=== PATIENT | female | born 1950 | race Caucasian/White ===

== ENCOUNTER → 2017-10-29 | Outpatient (CLI) | payer MEDICARE ==
--- NOTE | 2017-11-05 15:45 | MM ---
Reason for exam: screening (asymptomatic). Last mammogram was performed 7 years and 7 months ago. History: Patient is postmenopausal. Family history of breast cancer in mother at age 65. MG 3D Screening Mammo W/Cad Bilateral CC and MLO view(s) were taken. Prior study comparison: April 12, 2010, CAD bilateral diagnostic mammogram. September 22, 2005, CAD bilateral diagnostic mammogram. There are scattered fibroglandular densities. No suspicious abnormality. No significant changes when compared with prior studies. ASSESSMENT: Negative, BI-RAD 1 RECOMMENDATION: Routine screening mammogram of both breasts in 1 year.
== END | disposition home or self-care (01) ==
LOC: RADMAMWWP 13:10
PROVIDERS: ATTEND Family Medicine
DX: Z12.31 Encounter for screening mammogram for malignant neoplasm of breast (principal)
CPT/HCPCS: 77063; 77067

== ENCOUNTER 2017-11-09 09:20 | Day surgery (SDC) | payer MEDICARE ==
[2017-11-06 09:19] VITALS: BMI 42.5
[~2017-11-09 09:20] MED LIST: LACTATED RINGERS 1,000 ML IV SCH
[2017-11-09 09:49] VITALS: TEMP 98.1
[2017-11-09] MEDS ORDERED: PROPOFOL 10 MG/ML 20 ML VIAL IV ONE (10:15)
--- NOTE | 2017-11-09 10:27 | P.GSHP ---
History of Present Illness H&P Date: 11/09/17 Chief Complaint: Screening colonoscopy This is a 67-year-old female presents today for screening colonoscopy. Patient denies any significant GI complaints. Her last colonoscopy was over 20 years ago. Past Medical History Past Medical History: Myocardial Infarction ([place]), Musculoskeletal Disorder Additional Past Medical History / Comment(s): Back pain Last Myocardial Infarction Date:: 2001 History of Any Multi-Drug Resistant Organisms: None Reported Past Surgical History: Heart Catheterization Additional Past Surgical History / Comment(s): Abd. tumor/ ?benign/ no further [place]; pain procedures, colonoscopy Past Anesthesia/Blood Transfusion Reactions: No Reported Reaction Smoking Status: Former smoker - Past Family History Brother(s) Family Medical History: Cancer Additional Family Medical History / Comment(s): Colon Ca Medications and Allergies Home Medications Medication Instructions Recorded Confirmed Type Ascorbic Acid [Vitamin C] 1,000 mg PO DAILY 11/06/17 11/06/17 History Aspirin [Adult Low Dose Aspirin EC] 81 mg PO DAILY 11/06/17 11/06/17 History Calcium/Magnesium/Zinc 1 each PO DAILY 11/06/17 11/06/17 History [Hbhzkrh-Sxzbsdnrp-Ykis Tablet] Cholecalciferol (Vitamin D3) 2,000 unit PO DAILY 11/06/17 11/06/17 History [Vitamin D3] Lecithin, Soy [Lecithin] 400 mg PO DAILY 11/06/17 11/06/17 History Multivitamins, Thera [Multivitamin 1 tab PO DAILY 11/06/17 11/06/17 History (formulary)] Potassium 99 mg PO DAILY 11/06/17 11/06/17 History Vitamin B Complex 1 each PO DAILY 11/06/17 11/06/17 History Vitamin E 1,000 unit PO DAILY 11/06/17 11/06/17 History Acetaminophen Tab [Tylenol Tab] 650 mg PO Q4H PRN 11/09/17 11/09/17 History Allergies Allergy/AdvReac Type Severity Reaction Status Date / Time Sulfa (Sulfonamide Allergy states she Verified 11/06/17 09:08 Antibiotics) feels terrible, can't move Surgical - Exam Vital Signs Temp Pulse Resp BP Pulse Ox 98.1 F 65 18 134/85 97 11/09/17 09:47 11/09/17 09:47 11/09/17 09:47 11/09/17 09:47 11/09/17 09:47 - General well developed, well nourished - Eyes PERRL - ENT normal pinna - Neck no masses - Respiratory normal expansion - Cardiovascular Rhythm: regular - Abdomen Abdomen: soft, non tender Assessment and Plan Assessment: We'll perform screening colonoscopy.
--- NOTE | 2017-11-09 10:42 | P.OP ---
Date of Procedure: 11/09/17 Preoperative Diagnosis: Screening colonoscopy Postoperative Diagnosis: Internal and external hemorrhoids Diverticulosis Sigmoid colon polyp Left colon polyp Procedure(s) Performed: Colonoscopy Anesthesia: MAC Surgeon: Dany Askew Pathology: other (Sigmoid colon polyp, left colon polyp) Condition: stable Disposition: PACU Description of Procedure: Patient's placed on the endoscopy table in the lateral position. She received IV sedation. Digital rectal exam was performed which revealed significant internal and external hemorrhoids. The flexible colonoscope was then placed patient anus and passed throughout the entire colon. The ileocecal valve sutures. The cecum appeared normal. The ascending colon appeared normal. In the transverse colon there is mild diverticular changes. Scope was then brought back the descending colon and there was extensive diverticular changes. There was a polyp seen this removed with the snare. Scope was brought back and sigmoid colon there is another polyp seen this removed with the snare and forcep. There is extensive diverticular changes. Scope was then brought back the rectum this appeared normal. Scope was withdrawn for patient and internal and external hemorrhoids noted.
[2017-11-09 11:21] VITALS: BP 147/84; PULSE 64; RESP 20
== END 2017-11-09 11:28 | disposition home or self-care (01) ==
LOC: ORWHC2ENDO 09:20
PROVIDERS: ATTEND Surgery
DX: Z12.11 Encounter for screening for malignant neoplasm of colon (principal); K63.5 Polyp of colon; K57.30 Diverticulosis of large intestine without perforation or abscess without bleeding; K64.4 Residual hemorrhoidal skin tags; K64.8 Other hemorrhoids; I25.2 Old myocardial infarction; M54.5 Low back pain; Z87.891 Personal history of nicotine dependence; Z79.82 Long term (current) use of aspirin; Z88.2 Allergy status to sulfonamides
CPT/HCPCS: 88305; 45385; J2704

== ENCOUNTER → 2019-02-15 | Outpatient (CLI) | payer MEDICARE ==
--- NOTE | 2019-02-15 15:53 | XR ---
EXAMINATION TYPE: XR cervical spine 5 views comp, XR lumbosacral spine min 5 views DATE OF EXAM: 02/15/2019 COMPARISON: None HISTORY: 68-year-old female with neck and low back pain FINDINGS: Cervical spine: No predental space widening or prevertebral soft tissue swelling. Degenerative changes at the C1 dens articulation. Moderate disc/endplate degenerative change particularly at C5-C7 levels. Straightening of the normal cervical lordosis with preserved alignment. Facet and uncovertebral joint arthropathy throughout. On the right, there is moderate bony neuroforaminal narrowing at C5-C6 and mild at C6/C7. On the left, there is mild bony neuroforaminal narrowing at C4-C5 and severe at C6-C7. No odontoid v iew. Lumbar spine: Degenerated levoconvex scoliosis centered along the upper lumbar spine. There is hypertrophic facet a rthropathy particularly towards the left in the lower lumbar spine. Grade 1 anterolisthesis at L4-L5. Overall vertebral body heights appear maintained. IMPRESSION: 1. Cervical spine: Moderate spondylotic changes especially from C5 through C7 levels. Uncovertebral j oint and facet arthropathy throughout. Changes result in severe left neuroforaminal narrowing at C6-C 7 and moderate on the right at C5-C6. 2. Lumbar spine: Degenerated levoconvex scoliosis with advanced multilevel hypertrophic facet arthrop athy greatest towards the left in the lower lumbar spine. Degenerative grade 1 anterolisthesis at C4- C5. No vertebral compression collapse.
== END | disposition home or self-care (01) ==
LOC: RADXRMAIN 14:45
PROVIDERS: ATTEND Family Medicine
DX: M48.02 Spinal stenosis, cervical region (principal); M43.12 Spondylolisthesis, cervical region; M47.812 Spondylosis without myelopathy or radiculopathy, cervical region; M46.92 Unspecified inflammatory spondylopathy, cervical region; M41.86 Other forms of scoliosis, lumbar region; M46.96 Unspecified inflammatory spondylopathy, lumbar region
CPT/HCPCS: 72050; 72110

== ENCOUNTER 2021-05-01 20:55 | Inpatient (IN) | payer MEDICARE ==
--- NOTE | 2021-05-01 21:45 | XR ---
EXAMINATION TYPE: XR shoulder complete RT DATE OF EXAM: 05/01/2021 9:43 PM INDICATION: Patient age:Female; 70 years old; Reason for study: woke up with shoulder pain 2 days ago. ; COMPARISON: None TECHNIQUE: The right shoulder was examined in AP, internally rotated and axillary projections. FINDINGS: No evidence of acute osseous pathology, joint dislocation, or soft tissue swelling. The remaining por tions of the visualized chest are unremarkable. Degenerative changes acromioclavicular joint as well as the glenohumeral joint are present. IMPRESSION: 1. No acute osseous pathology. 2. 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
--- NOTE | 2021-05-01 22:07 | XR ---
EXAMINATION TYPE: XR elbow complete RT DATE OF EXAM: 05/01/2021 9:47 PM INDICATION: Patient age:Female; 70 years old; Reason for study: pain; COMPARISON: None TECHNIQUE: The right elbow was examined in AP, lateral, and oblique projections. FINDINGS: No evidence of any acute osseous pathology, joint dislocation, or soft tissue swelling is n oted. No evidence of joint effusion is present. Calcification off the lateral epicondyle changes. Os teophytes are seen involving the ulna coronoid process and olecranon. IMPRESSION: 1. No evidence of acute fracture. 2. Mild osteoarthrosis changes of the elbow
[2021-05-01 23:50] LABS: Basophils % (A) 1 %; Eosinophils # (A) 0.2 k/uL (0-0.7); Eosinophils % (A) 3 %; HCT 40.8 % (34.0-46.0); Lymphocytes # (A) 1.1 k/uL (1.0-4.8); Lymphocytes % (A) 19 %; MCH 29.9 pg (25.0-35.0); MCHC 31.9 g/dL (31.0-37.0); MCV 93.9 fL (80.0-100.0); Mean Platelet Volume 8.2; Monocytes # (A) 0.4 k/uL (0-1.0); Monocytes % (A) 6 %; Neutrophils # (A) 4.1 k/uL (1.3-7.7); Neutrophils % (A) 69 %; Platelet Count 266 k/uL (150-450); RBC 4.34 m/uL (3.80-5.40); RDW 14.8 % (11.5-15.5); WBC 5.9 k/uL (3.8-10.6)
--- NOTE | 2021-05-01 23:53 | XR ---
EXAMINATION TYPE: XR chest 1V DATE OF EXAM: 05/01/2021 COMPARISON: NONE HISTORY: Chest pain TECHNIQUE: Single view FINDINGS: Heart is enlarged. There is no heart failure. There are chest leads. Costophrenic angles ar e clear. There are no hilar masses. Bony thorax is intact IMPRESSION: No active cardiopulmonary disease.
[2021-05-02 00:06] LABS: ALT 23 U/L (4-34); African American GFR (CKD) >90 (>60 ml/min/1.73 sqM); Albumin 3.8 g/dL (3.5-5.0); Anion Gap 7 mmol/L; Blood Urea Nitrogen 10 mg/dL (7-17); Calcium 9.3 mg/dL (8.4-10.2); Carbon Dioxide 25 mmol/L (22-30); Chloride 104 mmol/L (98-107); Glucose 112 mg/dL (74-99); Non-African American GFR(CKD) >90 (>60 ml/min/1.73 sqM); Sodium 136 mmol/L (137-145); Total Bilirubin 1.1 mg/dL (0.2-1.3)
[2021-05-02 00:08] LABS: AST 36 U/L (14-36); Potassium 4.2 mmol/L (3.5-5.1)
[2021-05-02 00:09] LABS: Alkaline Phosphatase 66 U/L (38-126); Magnesium 1.9 mg/dL (1.6-2.3)
[2021-05-02 00:34] LABS: INR 0.9 (<1.2); Prothrombin Time 9.9 sec (9.0-12.0)
[2021-05-02 00:35] LABS: Partial Thromboplastin Time 19.9 sec (22.0-30.0)
--- NOTE | 2021-05-02 00:53 | US ---
EXAMINATION TYPE: US venous doppler duplex UE RT DATE OF EXAM: 05/02/2021 COMPARISON: NONE CLINICAL HISTORY: swelling, recent hospitalization. Swelling, pain. No hx of DVT. SIDE PERFORMED: Right Right Arm: No evidence of DVT in veins imaged at this time. IMPRESSION: No evidence of deep vein thrombosis in the right arm.
[2021-05-02] MEDS ORDERED: DILTIAZEM DRIP BOLUS FROM BAG 1 MG SOLN IV ONE (01:31)
[2021-05-02] MEDS ORDERED: PANTOPRAZOLE 40 MG/10 ML VIAL IVP STA (01:32)
[2021-05-02] MEDS ORDERED: MAG HYDROX/AL HYDROX/SIMETH 30 ML, HYOSCYAMINE ELIXIR 10 ML, LIDOCAINE VISCOUS 2% 10 ML PO STA ×3 (01:32)
[2021-05-02] MEDS ORDERED: MORPHINE SULFATE 4 MG/ML SYRINGE IV PRN (01:33)
[2021-05-02] MEDS ORDERED: NALOXONE 0.4 MG/ML 1 ML VIAL IV PRN (01:33)
--- NOTE | 2021-05-02 01:33 | ED ---
General Adult HPI - General Chief complaint: Extremity Problem,Nontraumatic Stated complaint: Right arm pain, diarrhea Time Seen by Provider: 05/01/21 23:03 Source: patient Mode of arrival: ambulatory Limitations: no limitations - History of Present Illness Initial comments: 70-year-old female presents emergency Department with reported right shoulder p ain. Patient reports that she was just hospitalized at [facility] twice over the past 2 weeks. She was having abdominal pain and found to have gastric and duodenal ulcers. Today the patient presents for right shoulder pain. She reports that it started 2 days ago after she woke up. She was concerned that she may have slept wrong. She has no known injury. Pain starts in the patient's scapula and radiates down her right arm. States that she has had some associated swelling. She has also noted vesicular lesions on her bilateral hands which spares the palms. Patient does admit to some associated chest pain. She arrives and is in A. fib with a rapid rate. She denies history of such. No ripping or tearing sensation to her back. Denies any numbness, tingling or weakness in her extremities. No alleviating, precipitating or modifying factors - Related Data Home Medications Medication Instructions Recorded Confirmed Albuterol Sulfate [Albuterol 2 puff PO RT-Q6H PRN 05/01/21 05/01/21 Sulfate Hfa] Losartan [Cozaar] 50 mg PO DAILY 05/01/21 05/01/21 Methocarbamol [Robaxin-750] 750 mg PO TID PRN 05/01/21 05/01/21 Omeprazole 40 mg PO BID 05/01/21 05/01/21 Sucralfate [Carafate] 1 gm PO TID 05/01/21 05/01/21 Allergies Allergy/AdvReac Type Severity Reaction Status Date / Time Sulfa (Sulfonamide Allergy states she Verified 05/01/21 23:28 Antibiotics) feels terrible, can't move Review of Systems ROS Statement: Those systems with pertinent positive or pertinent negative responses have been documented in the HPI. ROS Other: All systems not noted in ROS Statement are negative. Past Medical History Past Medical History: Myocardial Infarction ([place]), Musculoskeletal Disorder Additional Past Medical History / Comment(s): Back pain, ulcers. Last Myocardial Infarction Date:: 2001 History of Any Multi-Drug Resistant Organisms: None Reported Past Surgical History: Heart Catheterization Additional Past Surgical History / Comment(s): Abd. tumor/ ?benign/ no further [place]; pain procedures, colonoscopy Past Anesthesia/Blood Transfusion Reactions: No Reported Reaction Past Psychological History: No Psychological Hx Reported Smoking Status: Never smoker Past Alcohol Use History: Rare Past Drug Use History: None Reported - Past Family History Brother(s) Family Medical History: Cancer Additional Family Medical History / Comment(s): Colon Ca General Exam Limitations: no limitations Course Vital Signs 05/01/21 05/01/21 21:25 22:29 Temperature 98.3 F 98.0 F Pulse Rate 120 H 70 Respiratory 20 Rate Blood Pressure 130/70 154/110 O2 Sat by Pulse 96 95 Oximetry Medical Decision Making - Medical Decision Making Upon arrival patient was placed into trauma 1. A thorough history and physical exam was performed. Laboratory studies are conducted. Patient has a elbow, shoulder and chest x-ray performed. Results are discussed the patient. She is given a GI cocktail she does report to reflux. Patient also dose of pain medications. She started on a Cardizem drip as her heart rate is anywhere from 130 to 150. Heparinization is held as the patient was recently hospitalized for GI bleeding. I recommended admission. Spoke with Dr. Walter. Patient awaiting a bed on the floor in stable condition - Lab Data Result diagrams: 05/01/21 23:42 05/01/21 23:42 Lab Results 05/01/21 05/01/21 05/01/21 Range/Units 23:42 23:42 23:42 WBC 5.9 (3.8-10.6) k/uL RBC 4.34 (3.80-5.40) m/uL Hgb 13.0 (11.4-16.0) gm/dL Hct 40.8 (34.0-46.0) % MCV 93.9 (80.0-100.0) fL MCH 29.9 (25.0-35.0) pg MCHC 31.9 (31.0-37.0) g/dL RDW 14.8 (11.5-15.5) % Plt Count 266 (150-450) k/uL MPV 8.2 Neutrophils % 69 % Lymphocytes % 19 % Monocytes % 6 % Eosinophils % 3 % Basophils % 1 % Neutrophils # 4.1 (1.3-7.7) k/uL Lymphocytes # 1.1 (1.0-4.8) k/uL Monocytes # 0.4 (0-1.0) k/uL Eosinophils # 0.2 (0-0.7) k/uL Basophils # 0.0 (0-0.2) k/uL PT 9.9 (9.0-12.0) sec INR 0.9 (<1.2) APTT 19.9 L (22.0-30.0) sec Sodium 136 L (137-145) mmol/L Potassium 4.2 (3.5-5.1) mmol/L Chloride 104 (98-107) mmol/L Carbon Dioxide 25 (22-30) mmol/L Anion Gap 7 mmol/L BUN 10 (7-17) mg/dL Creatinine 0.60 (0.52-1.04) mg/dL Est GFR (CKD-EPI)AfAm >90 (>60 ml/min/1.73 sqM) Est GFR (CKD-EPI)NonAf >90 (>60 ml/min/1.73 sqM) Glucose 112 H (74-99) mg/dL Calcium 9.3 (8.4-10.2) mg/dL Magnesium 1.9 (1.6-2.3) mg/dL Total Bilirubin 1.1 (0.2-1.3) mg/dL AST 36 (14-36) U/L ALT 23 (4-34) U/L Alkaline Phosphatase 66 (38-126) U/L Troponin I (0.000-0.034) ng/mL NT-Pro-B Natriuret Pep pg/mL Total Protein 7.0 (6.3-8.2) g/dL Albumin 3.8 (3.5-5.0) g/dL 05/01/21 05/01/21 Range/Units 23:42 23:42 WBC (3.8-10.6) k/uL RBC (3.80-5.40) m/uL Hgb (11.4-16.0) gm/dL Hct (34.0-46.0) % MCV (80.0-100.0) fL MCH (25.0-35.0) pg MCHC (31.0-37.0) g/dL RDW (11.5-15.5) % Plt Count (150-450) k/uL MPV Neutrophils % % Lymphocytes % % Monocytes % % Eosinophils % % Basophils % % Neutrophils # (1.3-7.7) k/uL Lymphocytes # (1.0-4.8) k/uL Monocytes # (0-1.0) k/uL Eosinophils # (0-0.7) k/uL Basophils # (0-0.2) k/uL PT (9.0-12.0) sec INR (<1.2) APTT (22.0-30.0) sec Sodium (137-145) mmol/L Potassium (3.5-5.1) mmol/L Chloride (98-107) mmol/L Carbon Dioxide (22-30) mmol/L Anion Gap mmol/L BUN (7-17) mg/dL Creatinine (0.52-1.04) mg/dL Est GFR (CKD-EPI)AfAm (>60 ml/min/1.73 sqM) Est GFR (CKD-EPI)NonAf (>60 ml/min/1.73 sqM) Glucose (74-99) mg/dL Calcium (8.4-10.2) mg/dL Magnesium (1.6-2.3) mg/dL Total Bilirubin (0.2-1.3) mg/dL AST (14-36) U/L ALT (4-34) U/L Alkaline Phosphatase (38-126) U/L Troponin I <0.012 (0.000-0.034) ng/mL NT-Pro-B Natriuret Pep 1160 pg/mL Total Protein (6.3-8.2) g/dL Albumin (3.5-5.0) g/dL Disposition Clinical Impression: Atrial fibrillation with RVR, Right shoulder pain, Accelerated hypertension Disposition: ADMITTED IP TO THIS [facility] Condition: Stable Is patient prescribed a controlled substance at d/c from ED?: No Decision to Admit Reason: Admit from EC Decision Date: 05/02/21 Decision Time: 01:33
[2021-05-02] MEDS ORDERED: DILTIAZEM 125 MG in SODIUM CHLORIDE 0.9% 100 ML IV SCH (01:45)
[2021-05-02] MEDS: HYDROmorphone 0.5 MG/0.5 ML SYRINGE IVP PRN ×2 (05:21→14:38)
[2021-05-02] MEDS ORDERED: PANTOPRAZOLE 40 MG/10 ML VIAL IV SCH (09:00)
[2021-05-02] MEDS: METOPROLOL TARTRATE 25 MG TAB PO SCH ×2 (10:43→20:18)
[2021-05-02] MEDS ORDERED: methocarbamoL 750 MG TAB PO PRN (10:48)
[2021-05-02] MEDS ORDERED: NON FORMULARY DRUG (Omeprazole [Omeprazole] 40 MG Capsule.Dr) PO SCH (11:00)
--- NOTE | 2021-05-02 11:00 | ECHOF ---
Referral Reason:tachycardia/a fib MEASUREMENTS -------- HEIGHT: 170.2 cm WEIGHT: 120.2 kg BP: 114/69 RVIDd: 3.2 cm (< 3.3) IVSd: 1.5 cm (0.6 - 1.1) LVIDd: 5.9 cm (3.9 - 5.3) LVPWd: 1.4 cm (0.6 - 1.1) IVSs: 1.8 cm LVIDs: 3.9 cm LVPWs: 2.0 cm LAESV Index (A-L): 35.28 ml/m Ao Diam: 3.6 cm (2.0 - 3.7) AV Cusp: 2.2 cm (1.5 - 2.6) LA Diam: 4.4 cm (2.7 - 3.8) MV EXCURSION: 21.045 mm (> 18.000) MV EF SLOPE: 95 mm/s (70 - 150) EPSS: 1.2 cm MV E Jet: 1.09 m/s MV DecT: 254 ms MV A Jet: 0.70 m/s MV E/A Ratio: 1.55 RAP: 5.00 mmHg RVSP: 44.29 mmHg FINDINGS -------- Sinus rhythm. This was a technically adequate study. The left ventricular size is normal. There is moderate concentric left ventricular hypertrophy. O verall left ventricular systolic function is normal with, an EF between 55 - 60 %. The diastolic fi lling pattern is normal for the age of the patient 13.65. The right ventricle is normal in size. LA is moderately dilated 34-39 ml/m2 The right atrial size is normal. Interatrial and interventricular septum intact. There is no evidence of aortic regurgitation. There is no evidence of aortic stenosis. Lmdm-[id number] mitral regurgitation is present. [id number] tricuspid regurgitation present. There is mild to moderate pulmonary hypertension. The right ventricular systolic pressure, as measured by Doppler, is 44.29mmHg. There is no pulmonic regurgitation present. The aortic root size is normal. IVC Not well visulized. There is no pericardial effusion. CONCLUSIONS -------- 1. The left ventricular size is normal. 2. There is moderate concentric left ventricular hypertrophy. 3. Overall left ventricular systolic function is normal with, an EF between 55 - 60 %. 4. The diastolic filling pattern is normal for the age of the patient 13.65 5. LA is moderately dilated 34-39 ml/m2 6. Zfwj-[id number]-xbjfbrzq mitral regurgitation is present. 7. Yzzz-le-xlzajrmb tricuspid regurgitation present. 8. There is mild to moderate pulmonary hypertension. 9. The right ventricular systolic pressure, as measured by Doppler, is 44.29mmHg. [employer] CHIEF: Stephanie Maldonado RDCS
[2021-05-02] MEDS ORDERED: MAG HYDROX/AL HYDROX/SIMETH 30 ML, HYOSCYAMINE ELIXIR 10 ML, LIDOCAINE VISCOUS 2% 10 ML PO PRN ×3 (13:46)
--- NOTE | 2021-05-02 14:24 | P.CRDCN ---
History of Present Illness History of present illness: HISTORY OF PRESENTING ILLNESS This is a pleasant 70-year-old female past medical history significant for coronary artery disease, myocardial infarction 20 years ago no stent placements due to location of the blockages per patient, hypertension, former nicotine dependence, recent hospitalization at [facility] for abdominal pain and was diagnosed with non-bleeding gastric and duodenul ulcers. She was discharged from [facility] on 04/28/21 . She follows in the office with Dr. Ortega at [facility] in [place]. We have been asked to see in consultation for atrial fibrillation with rapid ventricular response. Patient presents emergency department with right arm pain. She stated that this started 2 days ago, she woke up and felt that she may have slept wrong on her arm. Over the past 2 days her right arm pain has been progressively getting worse. She states she can barely move her right arm without having significantly increased pain. She also endorses some associated swelling to the right arm. On admission patient was found to be in atrial fibrillation with rapid ventricular response, heart rate in the 140s. She denies any chest pain or discomfort, palpitations, lightheadedness, dizziness, nausea, vomiting, syncope. She denies any symptoms of orthopnea PND. She denies any history of atrial fibrillation or diabetes or stroke. She denies any current tobacco use, alcohol or illicit drug use. She states she recently saw Dr. Ortega in 6 months ago she underwent a Lexiscan stress test was negative for reversible ischemia. Patient was started on IV Cardizem drip and was given IV Cardizem 10 mg bolus. She converted back to sinus mechanism. DIAGNOSTICS EKG reveals atrial fibrillation with rapid ventricular response, heart rate 144. Repeat EKG on patient converted to sinus rhythm revealed sinus rhythm, heart rate 79, PVC, no significant ST or T-wave abnormalities Telemetry tracings indicate sinus mechanism heart rate 70s Chest xray no acute cardiopulmonary process. Ultrasound the right upper extremity revealed no DVT. X-rays of the right shoulder and elbow with no evidence of acute fracture, mild osteoarthrosis changes at the elbow, acromioclavicular and Glenohumeral joints Laboratory reviewed, CBC unremarkable, hemoglobin 13, sodium 136, potassium 4.2, BUN 10, serum creatinine 0.6, magnesium 1.9, troponin negative 3, pro BNP 1160, TSH within normal limits, COVID-19 negative Current home medications include losartan 50 mg daily, Robaxin 750 mg 3 times a day when necessary, omeprazole, Carafate REVIEW OF SYSTEMS At the time of my exam: CONSTITUTIONAL: Denies fever or chills. CARDIOVASCULAR: Denies chest pain, shortness of breath, orthopnea, PND or palpitations. RESPIRATORY: Denies cough. GASTROINTESTINAL: Denies abdominal pain, diarrhea, constipation, nausea or vomiting. MUSCULOSKELETAL: Right arm and wrist pain NEUROLOGIC: Denies numbness, tingling, headacbe or weakness. ENDOCRINE: Denies fatigue, weight change, polydipsia or polyurina. GENITOURINARY: Denies burning, hematuria or urgency with micturation. HEMATOLOGIC: Denies history of anemia or bleeding. PHYSICAL EXAMINATION Vitals 131/67, heart rate 72, afebrile, saturation denies is on room air CONSTITUTIONAL: No apparent distress. HEENT: Head is normocephalic. Pupils are equal, round. Sclerae anicteric. Mucous membranes of the mouth are moist. No JVD. No carotid bruit. CHEST EXAMINATION: Lungs are clear to auscultation. No chest wall tenderness is noted on palpation or with deep breathing. HEART EXAMINATION: Regular rate and rhythm. S1, S2 heard. No murmurs, gallops or rub. ABDOMEN: Soft, nontender. Positive bowel sounds. EXTREMITIES: 2+ peripheral pulses, Moderate non-pitting bilateral lower extremity edema and no calf tenderness. SKIN: warm, dry NEUROLOGIC EXAMINATION: Patient is awake, alert and oriented x3. ASSESSMENT Paroxysmal atrial fibrillation with rapid ventricular response -[id number] score 3, currently maintaining sinus mechanism Right arm pain and swelling History of hypertension History of myocardial infarction 20 years ago, no stent placements to location of blockages Coronary artery disease Former nicotine dependence PLAN Start metoprolol 25mg BID Continue losartan 50mg daily Obtain 2D echocardiogram- revealed EF 55-60%, mild to moderate MR, mild to moderate TR, mild to moderate pulmonary hypertension Recommend starting Eliquis 5mg BID, will consult case management for coverage assistance From a cardiology perspective, patient can be discharged home today if heart rates are controlled and Eliquis prescription is covered Nurse practitioner note has been reviewed by physician. Signing provider agrees with the documented findings, assessment, and plan of care. Past Medical History Past Medical History: Myocardial Infarction ([place]), Musculoskeletal Disorder Additional Past Medical History / Comment(s): Back pain, ulcers. Last Myocardial Infarction Date:: 2001 History of Any Multi-Drug Resistant Organisms: None Reported Past Surgical History: Heart Catheterization Additional Past Surgical History / Comment(s): Abd. tumor/ ?benign/ no further [place]; pain procedures, colonoscopy Past Anesthesia/Blood Transfusion Reactions: No Reported Reaction Past Psychological History: No Psychological Hx Reported Smoking Status: Never smoker Past Alcohol Use History: Rare Past Drug Use History: None Reported - Past Family History Brother(s) Family Medical History: Cancer Additional Family Medical History / Comment(s): Colon Ca Medications and Allergies Home Medications Medication Instructions Recorded Confirmed Type Albuterol Sulfate [Albuterol 2 puff PO RT-Q6H PRN 05/01/21 05/01/21 History Sulfate Hfa] Losartan [Cozaar] 50 mg PO DAILY 05/01/21 05/01/21 History Methocarbamol [Robaxin-750] 750 mg PO TID PRN 05/01/21 05/01/21 History Omeprazole 40 mg PO BID 05/01/21 05/01/21 History Sucralfate [Carafate] 1 gm PO TID 05/01/21 05/01/21 History Apixaban [Eliquis] 5 mg PO BID 30 Days #60 tab 05/02/21 Rx Allergies Allergy/AdvReac Type Severity Reaction Status Date / Time Sulfa (Sulfonamide Allergy states she Verified 05/01/21 23:28 Antibiotics) feels terrible, can't move Physical Exam Vitals: Vital Signs Temp Pulse Resp BP Pulse Ox 05/02/21 05:35 76 16 124/82 97 05/02/21 04:27 93 18 139/97 92 L 05/02/21 02:00 116 H 18 141/99 94 L 05/02/21 00:00 121 H 16 164/97 94 L 05/01/21 22:29 98.0 F 70 154/110 95 05/01/21 21:25 98.3 F 120 H 20 130/70 96 Intake and Output 05/01/21 05/01/21 05/02/21 14:59 22:59 06:59 Other: Weight 120.202 kg Results 05/01/21 23:42 05/01/21 23:42 Cardiac Enzymes 05/01/21 05/01/21 05/02/21 Range/Units 23:42 23:42 03:36 AST 36 (14-36) U/L Troponin I <0.012 <0.012 (0.000-0.034) ng/mL Coagulation 05/01/21 Range/Units 23:42 PT 9.9 (9.0-12.0) sec APTT 19.9 L (22.0-30.0) sec CBC 05/01/21 Range/Units 23:42 WBC 5.9 (3.8-10.6) k/uL RBC 4.34 (3.80-5.40) m/uL Hgb 13.0 (11.4-16.0) gm/dL Hct 40.8 (34.0-46.0) % Plt Count 266 (150-450) k/uL Comprehensive Metabolic Panel 05/01/21 Range/Units 23:42 Sodium 136 L (137-145) mmol/L Potassium 4.2 (3.5-5.1) mmol/L Chloride 104 (98-107) mmol/L Carbon Dioxide 25 (22-30) mmol/L BUN 10 (7-17) mg/dL Creatinine 0.60 (0.52-1.04) mg/dL Glucose 112 H (74-99) mg/dL Calcium 9.3 (8.4-10.2) mg/dL AST 36 (14-36) U/L ALT 23 (4-34) U/L Alkaline Phosphatase 66 (38-126) U/L Total Protein 7.0 (6.3-8.2) g/dL Albumin 3.8 (3.5-5.0) g/dL Current Medications Generic Name Dose Route Start Last Admin Trade Name Freq PRN Reason Stop Dose Admin Hydromorphone HCl 0.5 mg 05/02/21 05:09 05/02/21 05:21 Hydromorphone 0.5 Mg/0.5 Ml Syringe IVP 0.5 mg Q6HR PRN Administration Pain Diltiazem HCl 125 mg/ Sodium 125 mls @ 5 mls/hr 05/02/21 01:45 05/02/21 02:21 Chloride IV 5 mg/hr .Q24H JEREMY 5 mls/hr Administration 5 MG/HR Morphine Sulfate 4 mg 05/02/21 01:33 05/02/21 02:18 Morphine Sulfate 4 Mg/Ml Syringe IV 4 mg Q4HR PRN Administration Severe Pain Naloxone HCl 0.2 mg 05/02/21 01:33 Naloxone 0.4 Mg/Ml 1 Ml Vial IV Q2M PRN Opioid Reversal Pantoprazole Sodium 40 mg 05/02/21 09:00 Pantoprazole 40 Mg/10 Ml Vial IV DAILY JEREMY Intake and Output 05/01/21 05/01/21 05/02/21 14:59 22:59 06:59 Other: Weight 120.202 kg Patient Weight 05/02/21 06:59 Weight 120.202 kg 05/01/21 23:42 05/01/21 23:42
[2021-05-02] MEDS: CALCIUM CARBONATE LIQUID 500 MG/5 ML CUP PO SCH ×2 (16:34→20:18)
[2021-05-02] MEDS: PANTOPRAZOLE 40 MG TABLET PO SCH (16:35)
[2021-05-02] MEDS: ALBUTEROL NEBULIZED 2.5 MG/3 ML INHALATION PRN (16:55)
--- NOTE | 2021-05-02 17:07 | XR ---
EXAMINATION TYPE: XR wrist limited RT DATE OF EXAM: 05/02/2021 CLINICAL HISTORY: Pain and swelling. TECHNIQUE: Frontal and lateral images of the right wrist are obtained. COMPARISON: None FINDINGS: Osseous structures are demineralized. There is moderate to severe triscaphe joint space lo ss with subchondral cystic change. Moderate narrowing base of first metacarpal with [id number] spurring. Radial bony densities could reflect heterotopic ossification. The overlying soft tissue ap pears unremarkable. IMPRESSION: As above.
--- NOTE | 2021-05-02 18:36 | P.HPIM ---
History of Present Illness H&P Date: 05/02/21 Chief Complaint: Shoulder pain This is a 70-year-old patient who follows with Dr. Codie woods. Chronic stable medical conditions include CAD with her IA 20 years ago with angioplasty 2, osteoarthritis of the joints, peptic ulcer disease with ulcer in the stomach and the duodenal bulb which patient was recently at . Patient was discharged from 2 days ago. She said that she felt she could be sleeping wrong but is having pain in the right shoulder. Also in the right wrist. With some swelling. She is also having some chest pressure. Slight dizziness. No radiation. Duration unknown. Unable to lift her right arm much. She noticed this when she left . In the ER she was found to be in atrial fibrillation with rapid ventricle rate. We'll start him on a Cardizem drip. Patient does state eliquis at home. Patient is accompanied by her granddaughter mica. Review of systems: GEN.: Tired EYES: None HEENT: None NECK: None RESPIRATORY: None CARDIOVASCULAR: As above GASTROINTESTINAL: [Stomach discomfort GENITOURINARY: None MUSCULOSKELETAL: Joint pains LYMPHATICS: None HEMATOLOGICAL: None PSYCHIATRY: None NEUROLOGICAL: None Past medical history to include: IA 20 years ago with angioplasty 2, osteoarthritis, stomach and duodenal ulcer diagnosed 2 days ago. Social history: Granddaughter lives with her. Smoked a pack-a-day for 36 years stopped 20 years ago. Alcohol rarely. Family history: Colon cancer Physical examination: VITAL SIGNS: 98.3, 120, 20, 130/70, 96% room air GENERAL: BMI 41.5, declining but awake, not in distress. EYES: Pupils equal. Conjunctiva normal. HEENT: External appearance of nose and ears normal, oral cavity grossly normal. NECK: JVD not raised; masses not palpable. HEART: Heart sounds are regular no edema. LUNGS: Respiratory rate normal; decreased breath sounds. ABDOMEN: Soft, nontender, liver spleen not palpable, no masses palpable. PSYCH: Alert and oriented x3; mood and affect normal. MUSCULOSKELETAL:No Clubbing/cyanosis;muscles-grossly intact limited range of motion right shoulder at some point tenderness. Some swelling around the right wrist. Minimal tenderness NEUROLOGICAL: Cranial nerves grossly intact; no facial asymmetry, power and sensation grossly intact. LYMPHATICS: No lymph nodes palpable in the axilla and neck INVESTIGATIONS, reviewed in the clinical context: White count 5.9 hemoglobin 13 platelets 266 sodium 136 potassium 4.2 creatinine 0.6 Troponin I 3 negative TSH 2.6 Coronavirus [PCR]: Not detected EKG tracing personally reviewed by me-atrial flutter with a ventricular rate of 144 Venous Doppler of the right upper extremity: Negative for DVT. Chest x-ray film personally reviewed by me-cardiomegaly Shoulder and right elbow x-ray: No fracture. Some evidence of DJD 2-D echocardiogram: Moderate concentric LVH. EF 55-60%. [id number] MR and TR and pulmonary hypertension. Right wrist x-ray: Demineralization. Moderate to severe triphasic joint space loss with subchondral cystic changes. Moderate narrowing of the first metacarpal with. To my moderate spurring. Soft tissue unremarkable. Assessment and plan: -Persistent atrial flutter with a rapid vent rate. Started on IV Cardizem drip., Then Lopressor was added. Cardiology consulted. Telemetry. Continue eliquis -Gastric ulcer and duodenal bulb ulcer recently diagnosed at . Continue PPI. Carafate. Add liquid Tums for symptomatic treatment. -Coronary artery disease with IA 20 years ago with angioplasty 2 -Hypertensive heart disease Lopressor -Mild to moderate mitral and tricuspid regurgitation Follow clinically -Essential hypertension Lopressor -Morbid obesity BMI 41.5 Weight loss measures -Right shoulder pain right elbow pain and right wrist pain following discharge from the hospital. Appears to be a musculoskeletal strain. No fracture. We'll consult Dr. Crane to whome patient is known. Tylenol as needed. Voltaren gel. Patient advised to get outpatient physical therapy. After being seen by yasmine conn. Past Medical History Past Medical History: Myocardial Infarction ([place]), Musculoskeletal Disorder Additional Past Medical History / Comment(s): Back pain, ulcers. Last Myocardial Infarction Date:: 2001 History of Any Multi-Drug Resistant Organisms: None Reported Past Surgical History: Heart Catheterization Additional Past Surgical History / Comment(s): Abd. tumor/ ?benign/ no further [place]; pain procedures, colonoscopy Past Anesthesia/Blood Transfusion Reactions: No Reported Reaction Past Psychological History: No Psychological Hx Reported Smoking Status: Never smoker Past Alcohol Use History: Rare Past Drug Use History: None Reported - Past Family History Brother(s) Family Medical History: Cancer Additional Family Medical History / Comment(s): Colon Ca Medications and Allergies Home Medications Medication Instructions Recorded Confirmed Type Albuterol Sulfate [Albuterol 2 puff PO RT-Q6H PRN 05/01/21 05/01/21 History Sulfate Hfa] Losartan [Cozaar] 50 mg PO DAILY 05/01/21 05/01/21 History Methocarbamol [Robaxin-750] 750 mg PO TID PRN 05/01/21 05/01/21 History Omeprazole 40 mg PO BID 05/01/21 05/01/21 History Sucralfate [Carafate] 1 gm PO TID 05/01/21 05/01/21 History Apixaban [Eliquis] 5 mg PO BID 30 Days #60 tab 05/02/21 Rx Metoprolol Tartrate [Lopressor] 25 mg PO BID 30 Days #60 tab 05/02/21 Rx Allergies Allergy/AdvReac Type Severity Reaction Status Date / Time Sulfa (Sulfonamide Allergy states she Verified 05/01/21 23:28 Antibiotics) feels terrible, can't move Physical Exam Vitals: Vital Signs Temp Pulse Resp BP Pulse Ox 05/02/21 08:06 72 16 131/67 96 05/02/21 07:00 73 16 114/69 98 05/02/21 05:35 76 16 124/82 97 05/02/21 04:27 93 18 139/97 92 L 05/02/21 02:00 116 H 18 141/99 94 L 05/02/21 00:00 121 H 16 164/97 94 L 05/01/21 22:29 98.0 F 70 154/110 95 05/01/21 21:25 98.3 F 120 H 20 130/70 96 Intake and Output 05/01/21 05/02/21 05/02/21 22:59 06:59 14:59 Other: Weight 120.202 kg Results CBC & Chem 7: 05/01/21 23:42 05/01/21 23:42 Labs: Abnormal Lab Results - Last 24 Hours (Table) 05/01/21 05/01/21 Range/Units 23:42 23:42 APTT 19.9 L (22.0-30.0) sec Sodium 136 L (137-145) mmol/L Glucose 112 H (74-99) mg/dL
[2021-05-02] MEDS: SUCRALFATE 1 GM TAB PO SCH ×2 (18:52→23:46)
[2021-05-02] MEDS: ACETAMINOPHEN TAB 500 MG TAB PO SCH ×2 (18:52→23:46)
--- NOTE | 2021-05-02 18:56 | P.CNOR ---
History of Present Illness - [facility] Consult date: 05/02/21 Consult reason: other (Right upper extremity pain) History of present illness: Patient is a 70-year-old female who was brought to [facility] for further evaluation of right upper extremity discomfort. Patient was recently evaluated and treated at a [facility] for a GI issue, she was discharged a few days ago. Once arriving at the hospital, was determined that the patient was in A. fib with RVR, cardiology has been consulted and following the patient. Patient has had a few different imaging studies, this including x- rays of both right shoulder and right elbow along with upper extremity Doppler ultrasound. X-rays revealed no acute fractures or dislocations, Doppler was negative for DVT. Our orthopedic team was then consulted with regards to the right upper extremity pain. Patient was evaluated at bedside in the emergency room today. She did have some family present at bedside. Patient states that the pain in the right upper extremity started 2 days ago. She is unsure whether she slept on it wrong. Since then, the pain has stayed about the same, she does note the swelling is improving. She has very limited motion in the right upper extremity. She does have some numbness and tingling of the right upper extremity. Patient denies any recent trauma the right upper extremity, this to include falls. She denies any orthopedic surgery to that right upper extremity. Patient notices most of the symptoms with swelling and discomfort involving the elbow and wrist. She does have discomfort in the shoulder and limited range of motion. She denies any discomfort or issues with the left upper extremity. She has no acute symptoms, this including numbness or tingling or pain of the bilateral lower extremities. She has a known history of osteoarthritis involving the left knee which she sees Dr. Patiño in the outpatient setting. She has seen Dr. Morales in the past for her cervical spine, she cannot remember exactly what he recommended, she mentioned physical therapy which she never did. She is only seen him once in the office, this is back in May 2020. Currently patient denies any fevers or chills at this time. Patient denies any loss of bowel or bladder function. She has no other orthopedic complaints. Review of Systems Constitutional: Reports as per [facility] Past Medical History Past Medical History: Myocardial Infarction ([place]), Musculoskeletal Disorder Additional Past Medical History / Comment(s): Back pain, ulcers. Last Myocardial Infarction Date:: 2001 History of Any Multi-Drug Resistant Organisms: None Reported Past Surgical History: Heart Catheterization Additional Past Surgical History / Comment(s): Abd. tumor/ ?benign/ no further [place]; pain procedures, colonoscopy Past Anesthesia/Blood Transfusion Reactions: No Reported Reaction Past Psychological History: No Psychological Hx Reported Smoking Status: Never smoker Past Alcohol Use History: Rare Past Drug Use History: None Reported - Past Family History Brother(s) Family Medical History: Cancer Additional Family Medical History / Comment(s): Colon Ca Medications and Allergies Home Medications Medication Instructions Recorded Confirmed Type Albuterol Sulfate [Albuterol 2 puff PO RT-Q6H PRN 05/01/21 05/01/21 History Sulfate Hfa] Losartan [Cozaar] 50 mg PO DAILY 05/01/21 05/01/21 History Methocarbamol [Robaxin-750] 750 mg PO TID PRN 05/01/21 05/01/21 History Omeprazole 40 mg PO BID 05/01/21 05/01/21 History Sucralfate [Carafate] 1 gm PO TID 05/01/21 05/01/21 History Apixaban [Eliquis] 5 mg PO BID 30 Days #60 tab 05/02/21 Rx Metoprolol Tartrate [Lopressor] 25 mg PO BID 30 Days #60 tab 05/02/21 Rx Allergies Allergy/AdvReac Type Severity Reaction Status Date / Time Sulfa (Sulfonamide Allergy states she Verified 05/01/21 23:28 Antibiotics) feels terrible, can't move Physical Examination Gen: AOx3, NAD VSS stable at this time Integument: Exam of the right upper extremity demonstrated no open lesions, there are no areas of erythema Mild soft tissue swelling noted in the elbow along with the dorsal aspect of the wrist Palpation: Mild tenderness to palpation in the midline incision paraspinal region of the cervical spine Patient has mild tenderness with palpation involving the acromioclavicular joint of the right shoulder, generalized discomfort in the elbow with palpation, this including the dorsum of the wrist in the first CMC joint on the right hand ROM: Full range of motion in the left upper extremity in all major muscle groups Full range of motion of bilateral lower extremities in all major muscle groups Right upper extremity motion is limited due to pain, mainly with forward elevation and abduction of the shoulder, extension flexion of the elbow along with extension and flexion of the wrist Sensory Exam: Sensory exam to light touch is intact throughout the bilateral upper extremit ies, she does note some vague numbness and tingling throughout the entire arm, this is not constant Sensory exam to light touch throughout the bilateral lower extremities is intact Motor: 5/5 strength appreciated in the bilateral lower extremities with knee extension, knee flexion, plantar flexion, dorsiflexion, EHL, FHL. 4/5 strength appreciated with hip flexion on the left side, 5/5 strength on the right side 4+/5 strength appreciated in the left upper extremity with shoulder elevation, shoulder abduction, elbow extension, elbow flexion, wrist extension, wrist flexion, bulk clerk Strength was very difficult to assess in the right upper extremity, 3+/5 strength with shoulder elevation, shoulder abduction, elbow extension, elbow flexion, wrist extension, wrist flexion, bulk clerk Vascular: Radial and ulnar pulse 2+ on the right upper extremity Reflexes: Negative Rebecca's bilaterally, negative Babinski bilaterally, negative clonus bilaterally Results - Labs Labs: Abnormal Lab Results - Last 24 Hours (Table) 05/01/21 05/01/21 Range/Units 23:42 23:42 APTT 19.9 L (22.0-30.0) sec Sodium 136 L (137-145) mmol/L Glucose 112 H (74-99) mg/dL H & H 05/01/21 Range/Units 23:42 Hgb 13.0 (11.4-16.0) gm/dL Hct 40.8 (34.0-46.0) % Coagulation 05/01/21 Range/Units 23:42 INR 0.9 (<1.2) Result Diagrams: 05/01/21 23:42 05/01/21 23:42 - Diagnostic results Shoulder x-ray: report reviewed, image reviewed (Images demonstrated no acute fractures or dislocations. Past arthritic changes noted in the acromioclavicular joint) Elbow x-ray: report reviewed, image reviewed (No acute fractures or dislocations appreciated, no acute osseous abnormalities) Wrist/Hand x-ray: report reviewed, image reviewed (Report and images reviewed, no acute fractures or dislocations. Severe osteophytic changes at the CMC joint on the right hand) Cervical AP/lateral x-ray: report reviewed, image reviewed (Images were reviewed from May 2020, images demonstrate multilevel cervical spondylosis, worst levels being C4-C5, C5 to C6, C6-C7) Assessment and Plan Assessment: Right shoulder pain Right elbow pain Right hand/wrist pain Right upper extremity stiffness Right upper extremity radiculopathy Multilevel cervical spondylosis, most severe C4-C5, C5-C6, C6-C7 Right hand CMC joint osteoarthritis Right shoulder acromioclavicular joint osteoarthritis Other medical comorbidities Plan: I was able to discuss the case, including with physical exam findings and imaging studies my attending Dr. Morales. No emergent orthopedic surgical intervention recommended at this time Difficult to determine exact pathology of patient's current symptoms involving the right upper extremity. With the lack of range of motion and discomfort, this is likely radiculopathy stemming from the cervical spine. Will discuss wit h my attending possible use of IV steroids. Attempting to hold off on oral anti-inflammatories to the patient's recent GI issue. Will discuss with my attending the possibility of further imaging studies, more specifically a cervical MRI Pain control, continue with current medications at this time GI and DVT prophylaxis per primary medical service Other medical instrument technician recommendations Further recommendations to follow Time with Patient: Less than 30
[2021-05-02 19:00] LABS: C Reactive Protein 5.3 mg/dL (<1.0); Uric Acid 3.6 mg/dL (3.7-7.4)
[2021-05-02] MEDS: traMADol 50 MG TAB PO SCH (20:18)
[2021-05-02] MEDS: APIXABAN 5 MG TAB PO SCH (20:18)
[2021-05-02] MEDS: DICLOFENAC SODIUM GEL 100 GM TUBE TOPICAL SCH (23:46)
[2021-05-03] MEDS: traMADol 50 MG TAB PO SCH (05:05)
[2021-05-03] MEDS: CALCIUM CARBONATE LIQUID 500 MG/5 ML CUP PO SCH ×4 (06:39→21:14)
[2021-05-03] MEDS: PANTOPRAZOLE 40 MG TABLET PO SCH ×2 (06:39→15:26)
[2021-05-03 08:03] LABS: Basophils % (A) 1 %; Eosinophils # (A) 0.3 k/uL (0-0.7); Eosinophils % (A) 5 %; HCT 38.9 % (34.0-46.0); HGB 12.5 gm/dL (11.4-16.0); Lymphocytes # (A) 1.4 k/uL (1.0-4.8); Lymphocytes % (A) 25 %; MCH 30.1 pg (25.0-35.0); MCHC 32.1 g/dL (31.0-37.0); MCV 93.9 fL (80.0-100.0); Mean Platelet Volume 8.3; Monocytes # (A) 0.3 k/uL (0-1.0); Monocytes % (A) 5 %; Neutrophils # (A) 3.4 k/uL (1.3-7.7); Neutrophils % (A) 62 %; Platelet Count 259 k/uL (150-450); RBC 4.14 m/uL (3.80-5.40); RDW 14.2 % (11.5-15.5); WBC 5.4 k/uL (3.8-10.6)
[2021-05-03 08:15] LABS: African American GFR (CKD) >90 (>60 ml/min/1.73 sqM); Anion Gap 5 mmol/L; Blood Urea Nitrogen 11 mg/dL (7-17); Carbon Dioxide 24 mmol/L (22-30); Chloride 107 mmol/L (98-107); Glucose 136 mg/dL (74-99); Non-African American GFR(CKD) >90 (>60 ml/min/1.73 sqM); Potassium 3.8 mmol/L (3.5-5.1); Sodium 136 mmol/L (137-145)
[2021-05-03] MEDS: METOPROLOL TARTRATE 25 MG TAB PO SCH ×2 (09:57→21:14)
[2021-05-03] MEDS: ACETAMINOPHEN TAB 500 MG TAB PO SCH ×4 (09:57→21:15)
[2021-05-03] MEDS: LOSARTAN 50 MG TAB PO SCH (09:57)
[2021-05-03] MEDS: SUCRALFATE 1 GM TAB PO SCH ×3 (09:57→15:26)
[2021-05-03] MEDS: APIXABAN 5 MG TAB PO SCH ×2 (09:57→21:14)
[2021-05-03] MEDS: DICLOFENAC SODIUM GEL 100 GM TUBE TOPICAL SCH ×4 (09:58→21:16)
--- NOTE | 2021-05-03 11:32 | P.GSCN ---
History of Present Illness Consult date: 05/03/21 Reason for Consult: Upper extremity swelling Requesting physician: Rikki Walter History of present illness: This is a 70-year-old female who presented to the emergency department 2 days ago with complaints of right shoulder, elbow and wrist pain along with swelling of the right upper extremity. States is weak she was admitted to [facility] for 1 week's duration for complaints of abdominal pain and left hip pain. She ended up having an EGD and was diagnosed with ulcers. She also has a history of chronic neck and back pain and some other pain specialists who started her on some muscle relaxers. Thursday evening she took a muscle relaxer and Thursday she woke up with her right arm feeling sore. It progressively got worse and began to swell. She came to the emergency room for further evaluation. She had a shoulder x-ray, elbow x-ray as well as the wrist x-ray that shows no concerns with any fractures. Does show evidence of arthritis. The patient states the entire arm is sore, she has a hard time using that hand to knot picker cloth a fork or E due to the swelling and pain. She denies any previous history of similar episodes. She had a venous duplex of the right upper extremity that is negative for DVT. She was also noted on admission to be in atrial fibrillation and has been started on Eliquis. Orthopedics is on consult of recommending trial of Decadron and a neurology consult. Patient continues to have right upper extremity discomfort but states it has improved since being here. States the swelling has decreased as well as the redness and warmth. She is denying any chest pain or shortness of breath. Review of Systems - Constitutional Constitutional Comment(s): A 14 point review of systems was completed all pertinent positives and negatives as stated in the HPI. Past Medical History Past Medical History: Myocardial Infarction ([place]), Musculoskeletal Disorder Additional Past Medical History / Comment(s): Back pain, ulcers. Last Myocardial Infarction Date:: 2001 History of Any Multi-Drug Resistant Organisms: None Reported Past Surgical History: Heart Catheterization Additional Past Surgical History / Comment(s): Abd. tumor/ ?benign/ no further [place]; pain procedures, colonoscopy Past Anesthesia/Blood Transfusion Reactions: No Reported Reaction Past Psychological History: No Psychological Hx Reported Smoking Status: Never smoker Past Alcohol Use History: Rare Past Drug Use History: None Reported - Past Family History Brother(s) Family Medical History: Cancer Additional Family Medical History / Comment(s): Colon Ca Medications and Allergies Home Medications Medication Instructions Recorded Confirmed Type Albuterol Sulfate [Albuterol 2 puff PO RT-Q6H PRN 05/01/21 05/01/21 History Sulfate Hfa] Losartan [Cozaar] 50 mg PO DAILY 05/01/21 05/01/21 History Methocarbamol [Robaxin-750] 750 mg PO TID PRN 05/01/21 05/01/21 History Omeprazole 40 mg PO BID 05/01/21 05/01/21 History Sucralfate [Carafate] 1 gm PO TID 05/01/21 05/01/21 History Apixaban [Eliquis] 5 mg PO BID 30 Days #60 tab 05/02/21 Rx Metoprolol Tartrate [Lopressor] 25 mg PO BID 30 Days #60 tab 05/02/21 Rx Allergies Allergy/AdvReac Type Severity Reaction Status Date / Time Sulfa (Sulfonamide Allergy states she Verified 05/01/21 23:28 Antibiotics) feels terrible, can't move Surgical - Exam Vital Signs Temp Pulse Resp BP Pulse Ox 98.3 F 120 H 20 130/70 96 05/01/21 21:25 05/01/21 21:25 05/01/21 21:25 05/01/21 21:25 05/01/21 21:25 General appearance: The patient is alert, oriented, appears in no acute distress. Obese. HET: Head is normocephalic and atraumatic. Pupils are equal and reactive. Neck: Supple without lymphadenopathy. Trachea midline. No audible carotid bruit. Heart: S1 S2. Regular rate and rhythm. Lungs: Clear to auscultation bilaterally. Abdomen: Soft, nontender, nondistended. Extremities: Normal skin color and turgor. Right upper extremity with swelling from shoulder to hand, warm to the touch, no redness noted. +2 palpable radial pulse. Patient is able to move her arm with full range of motion and her hand however it patient does report pain and discomfort with movement. Neurological: No focal deficits. Strength and sensation are grossly intact. Results - Labs 05/03/21 07:51 05/03/21 07:51 Abnormal Lab Results - Last 24 Hours (Table) 05/02/21 05/02/21 05/03/21 Range/Units 18:31 18:31 07:51 ESR 48 H (0-20) mm/hr Sodium 136 L (137-145) mmol/L Glucose 136 H (74-99) mg/dL Uric Acid 3.6 L (3.7-7.4) mg/dL C-Reactive Protein 5.3 H (<1.0) mg/dL Diabetes panel 05/03/21 Range/Units 07:51 Sodium 136 L (137-145) mmol/L Potassium 3.8 (3.5-5.1) mmol/L Chloride 107 (98-107) mmol/L Carbon Dioxide 24 (22-30) mmol/L BUN 11 (7-17) mg/dL Creatinine 0.58 (0.52-1.04) mg/dL Glucose 136 H (74-99) mg/dL Calcium 9.0 (8.4-10.2) mg/dL Calcium panel 05/03/21 Range/Units 07:51 Calcium 9.0 (8.4-10.2) mg/dL Pituitary panel 05/03/21 Range/Units 07:51 Sodium 136 L (137-145) mmol/L Potassium 3.8 (3.5-5.1) mmol/L Chloride 107 (98-107) mmol/L Carbon Dioxide 24 (22-30) mmol/L BUN 11 (7-17) mg/dL Creatinine 0.58 (0.52-1.04) mg/dL Glucose 136 H (74-99) mg/dL Calcium 9.0 (8.4-10.2) mg/dL Adrenal panel 05/03/21 Range/Units 07:51 Sodium 136 L (137-145) mmol/L Potassium 3.8 (3.5-5.1) mmol/L Chloride 107 (98-107) mmol/L Carbon Dioxide 24 (22-30) mmol/L BUN 11 (7-17) mg/dL Creatinine 0.58 (0.52-1.04) mg/dL Glucose 136 H (74-99) mg/dL Calcium 9.0 (8.4-10.2) mg/dL - Imaging Comments: Shoulder x-ray: No acute osseous pathology. Mild osteoarthritis changes of the acromioclavicular and glenohumeral joints right elbow x-ray: No evidence of acute fracture. Mild osteoarthrosis changes of the elbow Right wrist x-ray: Moderate to severe tri-scaphoid joint space loss with subchondral cystic change. Moderate narrowing base of the first metacarpal with mild to moderate spurring. Radial bony densities could reflect heterotrophic ossification. The overlying soft tissue appears unremarkable. Right upper extremity venous duplex with no evidence of deep vein thrombosis in the right arm Assessment and Plan Assessment: 1. Right upper extremity swelling and pain Plan: 1. Recommend ice and elevation 2. Recommend compression stocking to the right upper extremity 3. There appears to be no indication for any vascular surgical intervention at this time 4. Continue with recommendations from orthopedics surgery as well as neurology 5. May consider CT of the chest if one has not been done in the last 6 months Thank you for this consultation and allowing us take part in the plan of care of your patient. We will sign off at this time. Please do not hesitate to call us back if you have any further needs. The impression and plan of care has been dictated as directed. Dr. Red I performed a history and examination of this patient, discussed the same with the dictator. I agree with the dictator's note ,documented as a scribe. Any additional findings or plans will be noted.
[2021-05-03] MEDS ORDERED: DEXAMETHASONE SOD PHOSPHATE 10 MG/ML 1 ML VIAL IVP SCH (12:00)
--- NOTE | 2021-05-03 13:45 | P.PN ---
Subjective This is a pleasant 70-year-old female past medical history significant for coronary artery disease, myocardial infarction 20 years ago no stent placements due to location of the blockages per patient, hypertension, former nicotine dependence, recent hospitalization at [facility] for abdominal pain and was diagnosed with non-bleeding gastric and duodenul ulcers. She denies any recent hematochezia or melena She was discharged from [facility] on 04/28/21 . She follows in the office with Dr. Ortega at [facility] in [place]. We have been asked to see in consultation for atrial fibrillation with rapid ventricular response. Patient presents emergency department with right arm pain and swelling. On admission patient was incidentally found to be in atrial fibrillation with rapid ventricular response, heart rate in the 140s. Patient was started on IV Cardizem drip and was given IV Cardizem 10 mg bolus. She converted back to sinus mechanism. 2D echocardiogram- revealed EF 55-60%, mild to moderate MR, mild to moderate TR, mild to moderate pulmonary hypertension 05/03/2021 Patient seen and examined at bedside, no acute distress. She continues to have right arm/wrist pain and swelling. She is maintaining sinus mechanism HR in the 60s. BP is stable. She is maintained on Eliquis 5mg BID and metoprolol tartrate 25mg BID. PHYSICAL EXAMINATION Vitals reviewed CONSTITUTIONAL: No apparent distress. HEENT: Neck Supple. No JVD. CHEST EXAMINATION: Lungs are clear to auscultation. No chest wall tenderness is noted on palpation or with deep breathing. HEART EXAMINATION: Regular rate and rhythm. S1, S2 heard. No murmurs, gallops or rub. ABDOMEN: Soft, nontender. Positive bowel sounds. EXTREMITIES: 2+ peripheral pulses, Moderate non-pitting bilateral lower extremity edema and no calf tenderness. SKIN: Right wrist and upper extremity swelling and erythemia, nodules on her right hand. warm to touch, and tender NEUROLOGIC EXAMINATION: Patient is awake, alert and oriented x3. ASSESSMENT Paroxysmal atrial fibrillation with rapid ventricular response -[id number] score 3, currently maintaining sinus mechanism Right arm pain and swelling History of hypertension History of myocardial infarction 20 years ago, no stent placements to location of blockages Coronary artery disease Former nicotine dependence PLAN Continue metoprolol 25mg BID, losartan 50mg daily , Eliquis 5mg BID Orthopedics is following for right arm pain and swelling. Patient is having acute onset of right wrist and right upper extremity swelling and erythema as well as nodules on her right hand. Patient's nodules on her fingertips have improved and do not appear typical of [place] nodes CRP and sed rate elevated likely possibly some sort of rheumatologic source of arthritis. From a cardiology perspective, patient is stable. We will follow the patient as needed. Patient follow up outpatient with Dr. Escamilla. Nurse practitioner note has been reviewed by physician. Signing provider agrees with the documented findings, assessment, and plan of care. Objective - Vital Signs Vital signs: Vital Signs Temp 98 F 05/03/21 12:00 Pulse 63 05/03/21 12:00 Resp 18 05/03/21 12:00 BP 206/85 05/03/21 12:00 Pulse Ox 97 05/03/21 12:00 Intake & Output 05/02/21 05/03/21 05/03/21 18:59 06:59 18:59 Intake Total 42.5 480 Output Total 300 Balance 42.5 180 Weight 115 kg Intake: Intake, IV Titration 42.5 Amount Diltiazem 125 mg In 42.5 Sodium Chloride 0.9% 100 ml @ 5 MG/HR 5 mls/hr IV .Q24H JEREMY Rx#:[id number] Oral 480 Output: Urine 300 Other: Voiding Method Toilet # Voids 1 1 - Labs CBC & Chem 7: 05/03/21 07:51 05/03/21 07:51 Labs: Abnormal Lab Results - Last 24 Hours (Table) 05/02/21 05/02/21 05/03/21 Range/Units 18:31 18:31 07:51 ESR 48 H (0-20) mm/hr Sodium 136 L (137-145) mmol/L Glucose 136 H (74-99) mg/dL Uric Acid 3.6 L (3.7-7.4) mg/dL C-Reactive Protein 5.3 H (<1.0) mg/dL
[2021-05-03] MEDS ORDERED: LORazepam 2 MG/ML INJ IV STA (15:08)
[2021-05-03] MEDS: predniSONE 20 MG TAB PO SCH (15:26)
--- NOTE | 2021-05-03 17:09 | P.CNNES ---
History of Present Illness Consult date: 05/03/21 Requesting physician: Marck Erickson Reason for Consult: right hand tremor; right arm weakness History of Present Illness: Patient is a 70-year-old female came to the hospital 2 days ago on 05/01/2021 at 9 PM for evaluation of right arm pain and weakness. Patient states that she was recently admitted to [facility] for pain in the left SI region extending to the left suprapubic region. She was diagnosed with gastric and duodenal ulcers and hiatal hernia. Patient was discharged last Thursday on 04/28/2021. Patient states that she took Flexeril first time Thursday night and slept very well. On Thursday morning she woke up and her right arm was hurting, in fact it was whole arm hurting, particularly in the right shoulder, elbow and the wrist region. Thursday got worse therefore she came to the hospital here. Patient has developed significant swelling of the entire right arm. She has noticed weakness and pain, particularly involving behind the right shoulder region, extending to the right shoulder, then elbow and the wrist. Patient was found to have atrial fibrillation in the hospital here. Patient states ice helps with the pain. Her right arm is significantly swollen. She is noticing some rash that keeps him coming and going involving her fingers of the right hand. She also notices numbness tingling behind the upper arm. It is not all the time, comes and goes. Her right arm does feel weak. 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 Patient denies diabetes. No history of trauma. No pain in the left arm or either lower limbs. Vital signs on arrival blood pressure 130/70, pulse rate 120, temperature 98.3 2-D echo revealed normal left-ventricular size. Moderate concentric LVH. EF is between 55-60%. Left atrium is moderately dilated. Mild to moderate MR. Mild to moderate TR. Venous Doppler of the right upper extremity was negative for DVT. X-ray of the right elbow shows no evidence of acute fracture. Mild osteoarthrosis changes of the elbow. Chest x-ray showed no active cardiopulmonary disease. EKG shows atrial fibrillation with rapid ventricular rate. X-ray of the right wrist showing moderate to severe tract capsular joint space loss and subchondral cystic change. Moderate narrowing base of the first metacarpal with mild to moderate spurring. Radial bony densities could reflect heterotopic ossification. The overlying soft tissue appears unremarkable. Orthopedic surgery has seen the patient, recommending trial of Decadron. Shoulder x-ray showed no osseous pathology. 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 Blood test shows normal CBC, ESR is 48, sodium 136 potassium 3.8, normal renal functions. TSH is normal. CRP 5.3. Magana virus PCR negative. Review of Systems As mentioned above in detail. Right arm pain, swelling, numbness and kneeling and weakness. Denies any chest pain, double vision loss of vision, hoarseness, sore throat, dysphagia. Patient complaining of some "intermittent" rash in the right hand fingers. No fever or chills. Past Medical History Past Medical History: Myocardial Infarction ([place]), Musculoskeletal Disorder Additional Past Medical History / Comment(s): Back pain, ulcers. Last Myocardial Infarction Date:: 2001 History of Any Multi-Drug Resistant Organisms: None Reported Past Surgical History: Heart Catheterization Additional Past Surgical History / Comment(s): Abd. tumor/ ?benign/ no further [place]; pain procedures, colonoscopy Past Anesthesia/Blood Transfusion Reactions: No Reported Reaction Past Psychological History: No Psychological Hx Reported Smoking Status: Never smoker Past Alcohol Use History: Rare Past Drug Use History: None Reported - Past Family History Brother(s) Family Medical History: Cancer Additional Family Medical History / Comment(s): Colon Ca Medications and Allergies Home Medications Medication Instructions Recorded Confirmed Type Albuterol Sulfate [Albuterol 2 puff PO RT-Q6H PRN 05/01/21 05/01/21 History Sulfate Hfa] Losartan [Cozaar] 50 mg PO DAILY 05/01/21 05/01/21 History Methocarbamol [Robaxin-750] 750 mg PO TID PRN 05/01/21 05/01/21 History Omeprazole 40 mg PO BID 05/01/21 05/01/21 History Sucralfate [Carafate] 1 gm PO TID 05/01/21 05/01/21 History Apixaban [Eliquis] 5 mg PO BID 30 Days #60 tab 05/02/21 Rx Metoprolol Tartrate [Lopressor] 25 mg PO BID 30 Days #60 tab 05/02/21 Rx Allergies Allergy/AdvReac Type Severity Reaction Status Date / Time Sulfa (Sulfonamide Allergy states she Verified 05/01/21 23:28 Antibiotics) feels terrible, can't move Physical Examination - Vital Signs Vital Signs: Vital Signs Temp Pulse Pulse Pulse Resp BP Pulse Ox 05/03/21 08:00 98 F 70 18 140/63 97 05/03/21 05:00 98.0 F 60 16 142/65 95 05/03/21 01:05 16 05/03/21 00:00 98.1 F 63 16 131/60 95 05/02/21 20:00 98.9 F 75 18 132/60 93 L 05/02/21 17:15 99.3 F 79 16 133/58 95 05/02/21 17:04 68 18 05/02/21 16:55 68 18 05/02/21 13:04 98.7 F 70 18 137/82 96 Intake and Output 05/02/21 05/03/21 05/03/21 22:59 06:59 14:59 Intake Total 360 Output Total 300 Balance 60 Intake: Oral 360 Output: Urine 300 Other: Voiding Method Toilet Toilet # Voids 1 1 Weight 115 kg Patient is an elderly female, in no acute distress. Patient is alert awake oriented to time place and person. Speech and language functions are normal. Attention, concentration and fund of knowledge is adequate. No aphasia or dysarthria. On cranial examination, pupils are round and reacting to light, visual browne are full on confrontation, extraocular muscles are intact with no nystagmus. Face is symmetric, tongue protrudes to the midline. Palatal elevation and sensation normal, hearing and shoulder shrug normal, facial sensation normal. Shoulder shrug normal. On muscle strength testing, the strength is normal in the left arm and both legs distally and proximally. In the right upper limb, patient has significant guarding and pain with different muscles tested. She has definite weakness about 5- of the right biceps, possible deltoid, finger extension, finger flexion, interossei are 4 in the right hand. Triceps appears normal. Deep tendon reflexes are (right/left) biceps trace/2, or brachioradialis trace/2, triceps 1/2. Knee reflexes are almost absent, ankles trace to 1 bilaterally and plantars downgoing bilaterally. Sensory to touch is decreased significantly in the right C5, and C6 dermatomes, slightly in the right C7 dermatome and normal in the right C8 dermatome. Cerebellar function showed no ataxia for [id number] testing. No dysdiadochokinesia. Tone and bulk of muscles normal. Gait deferred. On general examination, there is no carotid bruit, S1-S2 audible. Abdomen is soft nontender. No organomegaly, bowel sounds present. Chest is clear. Peripheral pulses are present. Patient has very significant edema in the right upper extremity all the way from upper arm to the dorsum of the hand and fingers. Patient is wearing tight stockings in the right arm. No obvious rash or vesicles noted in the right hand. Results - Laboratory Findings CBC and BMP: 05/03/21 07:51 05/03/21 07:51 Abnormal Lab Findings: Abnormal Labs 05/01/21 05/01/21 05/02/21 23:42 23:42 18:31 ESR APTT 19.9 L Sodium 136 L Glucose 112 H Uric Acid 3.6 L C-Reactive Protein 5.3 H 05/02/21 05/03/21 18:31 07:51 ESR 48 H APTT Sodium 136 L Glucose 136 H Uric Acid C-Reactive Protein Assessment and Plan Assessment: * Acute onset (4 days duration) of right arm pain, weakness and numbness. Examination reveals mildly decreased strength in multiple myotomes of the right upper limb, with significant loss of reflex of the right biceps and brachioradialis (C5-6). Probable brachial plexopathy, less likely radiculopathy. Exact cause remains uncertain. No trauma. * Right arm swelling, of unclear etiology. No evidence of DVT in the right upper extremity. * New onset atrial fibrillation, started on Eliquis. Plan: * MRI of the right brachial plexus with and without contrast * MRI of the cervical spine * Hemoglobin A1c, Lyme titer * Consider starting corticosteroids. Solu-Medrol 250 mg IV twice a day versus prednisone. Discussed with Dr. Walter. * We will follow. Thank you for the consult.
--- NOTE | 2021-05-03 19:39 | P.PN ---
Progress Note - Text Progress Note Date: 05/03/21 Chief Complaint: Shoulder pain This is a 70-year-old patient who follows with Dr. Codie woods. Chronic stable medical conditions include CAD with her MS 20 years ago with angioplasty 2, osteoarthritis of the joints, peptic ulcer disease with ulcer in the stomach and the duodenal bulb which patient was recently at [facility]. Patient was discharged from [facility] 2 days ago. She said that she felt she could be sleeping wrong but is having pain in the right shoulder. Also in the right wrist. With some swelling. She is also having some chest pressure. Slight dizziness. No radiation. Duration unknown. Unable to lift her right arm much. She noticed this when she left [facility]. In the ER she was found to be in atrial fibrillation with rapid ventricle rate. We'll start him on a Cardizem drip. Patient does state eliquis at home. Patient is accompanied by her granddaughter mica. Patient was admitted with atrial flutter-fibrillation rapid ventricular rate. Put on IV Cardizem drip. Reverted to sinus rhythm. Patient also complaining of pain in the right shoulder, some swelling of the right arm. Wrist swelling. Doppler ultrasound negative for DVT. X-rays of the wrist shoulder elbow negative for any fracture. Patient seen by vascular surgery, no vascular compromise. May 03: Patient has a Taz wrap on the right upper extremity. Swelling better. Seen by neurology. Suspecting brachial plexus injury. MRI ordered. Discussed with patient. Discussed with Dr. Lucas from neurology. Start patient on prednisone 60 mg for possible brachial plexus nerve injury Active Medications Acetaminophen (Acetaminophen Tab 500 Mg Tab) 500 mg PO QID [facility]END[facility] TO [facility] Last Admin: 05/03/21 18:05 Dose: Not Given Documented by: Albuterol Sulfate (Albuterol Nebulized 2.5 Mg/3 Ml) 2.5 mg INHALATION RT-Q6H PRN PRN Reason: Shortness Of Breath Last Admin: 05/02/21 16:55 Dose: 2.5 mg Documented by: Apixaban (Apixaban 5 Mg Tab) 5 mg PO BID [facility]; Protocol Last Admin: 05/03/21 09:57 Dose: 5 mg Documented by: Calcium Carbonate/Glycine (Calcium Carbonate Liquid 500 Mg/5 Ml Cup) 500 mg PO [facility] PENDING S[facility] TO [facility] Last Admin: 05/03/21 15:26 Dose: 500 mg Documented by: Diclofenac Sodium (Diclofenac Sodium Gel 100 Gm Tube) 2 gm TOPICAL QID [facility]; Protocol Last Admin: 05/03/21 18:05 Dose: Not Given Documented by: Losartan Potassium (Losartan 50 Mg Tab) 50 mg PO DAILY [facility] Last Admin: 05/03/21 09:57 Dose: 50 mg Documented by: Metoprolol Tartrate (Metoprolol Tartrate 25 Mg Tab) 25 mg PO BID [facility] Last Admin: 05/03/21 09:57 Dose: 25 mg Documented by: Naloxone HCl (Naloxone 0.4 Mg/Ml 1 Ml Vial) 0.2 mg IV Q2M PRN PRN Reason: Opioid Reversal Pantoprazole Sodium (Pantoprazole 40 Mg Tablet) 40 mg PO AC-BID [facility] Last Admin: 05/03/21 15: Dose: 40 mg Documented by: Prednisone (Prednisone 20 Mg Tab) 60 mg PO DAILY [facility] Last Admin: 05/03/21 15: Dose: 60 mg Documented by: Sucralfate (Sucralfate 1 Gm Tab) 1 gm PO AC-TID [facility] Last Admin: 05/03/21 15:26 Dose: 1 gm Documented by: Past medical history to include: MS 20 years ago with angioplasty 2, osteoarthritis, stomach and duodenal ulcer diagnosed 2 days ago. Social history: Granddaughter lives with her. Smoked a pack-a-day for 36 years stopped 20 years ago. Alcohol rarely. Family history: Colon cancer Physical examination: VITAL SIGNS: 98, 63, 18, 146/70, 97% room air GENERAL: Sitting of the edge of the bed, awake, comfortable EYES: Pupils equal. Conjunctiva normal. HEENT: External appearance of nose and ears normal, oral cavity grossly normal. NECK: JVD not raised; masses not palpable. HEART: Heart sounds are regular no edema. LUNGS: Respiratory rate normal; decreased breath sounds. ABDOMEN: Soft, nontender, liver spleen not palpable, no masses palpable. PSYCH: Alert and oriented x3; mood and affect normal. MUSCULOSKELETAL:No Clubbing/cyanosis;muscles-grossly intact limited range of motion right shoulder at some point tenderness. Some swelling around the right wrist. Minimal tenderness. Right arm in Taz wrap NEUROLOGICAL: Decreased principal consultant in the right arm. LYMPHATICS: No lymph nodes palpable in the axilla and neck INVESTIGATIONS, reviewed in the clinical context: May 03: White count 5.4 hemoglobin 12.1 potassium 3.8 creatinine 0.58 White count 5.9 hemoglobin 13 platelets 266 sodium 136 potassium 4.2 creatinine 0.6 Troponin I 3 negative TSH 2.6 Coronavirus [PCR]: Not detected EKG tracing personally reviewed by me-atrial flutter with a ventricular rate of 144 Venous Doppler of the right upper extremity: Negative for DVT. Chest x-ray film personally reviewed by me-cardiomegaly Shoulder and right elbow x-ray: No fracture. Some evidence of DJD 2-D echocardiogram: Moderate concentric LVH. EF 55-60%. [id number] MR and TR and pulmonary hypertension. Right wrist x-ray: Demineralization. Moderate to severe triphasic joint space loss with subchondral cystic changes. Moderate narrowing of the first metacarpal with. To my moderate spurring. Soft tissue unremarkable. Assessment and plan: -Paroxysmal atrial flutter with a rapid vent rate., Now back into sinus rhythm. IV Cardizem drip-discontinued., Lopressor 25 mg twice a day. Cardiology consulted. Telemetry. Continue eliquis -Gastric ulcer and duodenal bulb ulcer recently diagnosed at [facility]. Continue PPI. Carafate. liquid Tums for symptomatic treatment. -Coronary artery disease with MS 20 years ago with angioplasty 2 -Hypertensive heart disease Lopressor -Mild to moderate mitral and tricuspid regurgitation Follow clinically -Essential hypertension Lopressor -Morbid obesity BMI 41.5 Weight loss measures -Right shoulder, right arm pain and some swelling. No fracture. No DVT. Seen by orthopedics and vascular. Evaluated by Dr. Lucas from neurology. Being worked up for possible brachial plexus injury. MRI ordered. Started on prednisone 60 mg. Patient remains in sinus rhythm. On Lopressor. Discussed with Dr. Lucas from neurology. MRI of the brachial plexus LAD cervical spine ordered. Started on prednisone 60 mg. Discussed with patient.
--- NOTE | 2021-05-03 19:59 | P.PN ---
Subjective Progress Note Date: 05/03/21 Principal diagnosis: Right arm pain/stiffness/swelling -cervical spondylosis Patient was seen at bedside this morning sitting up complaining of right arm pain. Patient says she is having some increased swelling and stiffness in the right arm especially in the right elbow. Patient mentions she is not able to fully extend the right elbow. Patient also demonstrates her inability to hold onto a fork as her hand trembles while she tries to hold onto a fork. Patient says she is not able to move her shoulder your. Patient denies chest pain, fever, shortness breath, nausea, vomiting, change in vision, loss of bowel/bladder control. Objective - Vital Signs Vital signs: Vital Signs Temp 98 F 05/03/21 15:30 Pulse 86 05/03/21 15:30 Resp 18 05/03/21 15:30 BP 172/73 05/03/21 15:30 Pulse Ox 94 L 05/03/21 15:30 Intake & Output 05/03/21 05/03/21 05/04/21 06:59 18:59 06:59 Intake Total 600 Output Total 300 Balance 300 Weight 115 kg Intake: Oral 600 Output: Urine 300 Other: Voiding Method Toilet # Voids 1 3 - Exam focused RUE Negative for any erythema, ecchymosis, open fractures in the right upper extremity. Positive for moderate edema to the right upper extremity. Moderate TTP along the right upper extremity at the elbow. NTTP throughout rest of exam. Patient has significantly limited range of motion in the right upper extremity especially in elbow flexion/extension shoulder abduction/forward elevation and wrist flexion/extension. Motor 2+/5 throughout right upper extremity. Neurovascular status is intact. Radial pulse 2+, intact. Cap refill under 3 seconds. Negative Homans bilaterally - Labs CBC & Chem 7: 05/03/21 07:51 05/03/21 07:51 Labs: Abnormal Lab Results - Last 24 Hours (Table) 05/03/21 Range/Units 07:51 Sodium 136 L (137-145) mmol/L Glucose 136 H (74-99) mg/dL Assessment and Plan Assessment: 1. Right upper extremity pain/stiffness/swelling; cervical spondylosis Plan: 1. Right upper extremity pain/stiffness/swelling; cervical spondylosis- patient seen at bedside this morning. Plan to start patient on Decadron 6mg every 6 hours. MRI of cervical spine has been ordered for further evaluation of spine/radiculopathy. We will continue to follow patient while in hospital. 2. Appreciate medical management; appreciate neuro management; appreciater cardio management 3. Pain management - Tylenol 4. DVT prophylaxis - Eliquis 5. GI ppx - Protonix 6. PT/OT - WBAT 7. Encourage incentive spirometer use Time with Patient: Less than 30
--- NOTE | 2021-05-03 22:28 | MR ---
EXAMINATION TYPE: MR cervical spine wo con DATE OF EXAM: 05/03/2021 COMPARISON: None HISTORY: Plexopathy vs radiculopathy TECHNIQUE: Multi planar, multi sequence imaging was performed utilizing: T1-weighted, T2-weighted, im aging of the cervical spine. No Gadolinium was given. FINDINGS: Alignment: The cervical vertebral bodies have preserved heights. Alignment is within normal limits gi ammon patient positioning. Bones: Bone signal is within normal limits. Multilevel degenerative disc disease is noted and most p ronounced at the C4, C5 and C6 vertebral levels. Cord: The spinal cord is unremarkable with regards to their signal intensity and morphology. Discs: Intervertebral disc signal is maintained. C2-C3: No significant disc pathology. The spinal canal is patent. No neural foraminal stenosis. C3-C4: No significant disc pathology. The spinal canal is patent. Bilateral facet and uncovertebral joint arthropathy are present with mild bilateral neural foraminal stenosis. C4-C5: A disc osteophyte complex is present with mild spinal canal stenosis. Bilateral facet and unc overtebral joint arthropathy are present with moderate bilateral neural foraminal stenosis. C5-C6: A disc osteophyte complex is present with mild spinal canal stenosis. Bilateral facet and unc overtebral joint arthropathy are present with severe right neural foraminal stenosis. The left neural foramen is patent with moderate stenosis. C6-C7: A disc osteophyte complex is present with mild spinal canal stenosis. Bilateral facet and unc overtebral joint arthropathy are present with moderate to severe left neural foraminal stenosis. The right neural foramen is patent with mild stenosis. C7-T1: No significant disc pathology. The spinal canal is patent. No neural foraminal stenosis. IMPRESSION: 1. No evidence for disc herniation or significant spinal canal stenosis. 2. Multilevel disc degeneration with associated osteoarthritic changes, Resulting in severe right and moderate left C5-C6 and moderate to severe left C6-C7 neural foraminal stenosis.
[2021-05-04] MEDS: CALCIUM CARBONATE LIQUID 500 MG/5 ML CUP PO SCH ×4 (06:50→21:51)
[2021-05-04] MEDS: SUCRALFATE 1 GM TAB PO SCH ×3 (06:51→17:13)
[2021-05-04] MEDS: PANTOPRAZOLE 40 MG TABLET PO SCH ×2 (06:51→17:13)
[2021-05-04] MEDS: ALBUTEROL NEBULIZED 2.5 MG/3 ML INHALATION PRN (08:31)
[2021-05-04] MEDS: LOSARTAN 50 MG TAB PO SCH (09:03)
[2021-05-04] MEDS: APIXABAN 5 MG TAB PO SCH ×2 (09:03→21:51)
[2021-05-04] MEDS: ACETAMINOPHEN TAB 500 MG TAB PO SCH ×4 (09:03→21:51)
[2021-05-04] MEDS: predniSONE 20 MG TAB PO SCH (09:03)
[2021-05-04] MEDS: METOPROLOL TARTRATE 25 MG TAB PO SCH ×2 (09:04→21:51)
[2021-05-04] MEDS: DICLOFENAC SODIUM GEL 100 GM TUBE TOPICAL SCH ×4 (09:06→21:52)
--- NOTE | 2021-05-04 10:53 | P.PN ---
Subjective Progress Note Date: 05/04/21 Principal diagnosis: Right arm pain/stiffness/swelling -cervical spondylosis Patient was seen at bedside this morning. Patient says she is having some increased swelling and stiffness in the right arm especially in the right elbow. Patient says she is still concerned about the swelling in her right arm as well as the inability to fully extend her right elbow and her difficulty with being able to hold onto silverware. Patient says she is not able to move her shoulder your. Patient denies chest pain, fever, shortness breath, nausea, vomiting, change in vision, loss of bowel/bladder control. Objective - Vital Signs Vital signs: Vital Signs Temp 97.7 F 05/04/21 04:00 Pulse 70 05/04/21 08:42 Resp 18 05/04/21 04:00 BP 158/89 05/04/21 04:00 Pulse Ox 94 L 05/04/21 04:00 Intake & Output 05/03/21 05/04/21 05/04/21 18:59 06:59 18:59 Intake Total 600 180 Output Total 300 Balance 300 180 Weight 117 kg Intake: Oral 600 180 Output: Urine 300 Other: Voiding Method Toilet Incontinent # Voids 3 1 1 - Exam focused RUE Negative for any erythema, ecchymosis, open fractures in the right upper extremity. Positive for moderate edema to the right upper extremity. Moderate TTP along the right upper extremity at the elbow. NTTP throughout rest of exam. Patient has significantly limited range of motion in the right upper extremity especially in elbow flexion/extension shoulder abduction/forward elevation and wrist flexion/extension. Motor 2+/5 throughout right upper extremity. Neurovascular status is intact. Radial pulse 2+, intact. Cap refill under 3 seconds. Negative Homans bilaterally - Labs CBC & Chem 7: 05/03/21 07:51 05/03/21 07:51 Labs: Microbiology - Last 24 Hours (Table) 05/02/21 18:31 Blood Culture - Preliminary Blood No Growth after 24 hours 05/02/21 18:36 Blood Culture - Preliminary Blood No Growth after 24 hours Assessment and Plan Assessment: 1. Right upper extremity pain/stiffness/swelling; cervical spondylosis Plan: 1. Right upper extremity pain/stiffness/swelling; cervical spondylosis- patient seen at bedside this morning. MRI of cervical spine completed shows C5-C6 and C6-C7 foraminal stenosis. At this time we do not recommend any emergent/urgent orthopedic surgical intervention. At this time we recommend conservative measures with PT/OT and medication for controlling symptoms. We will continue to follow patient while in hospital. 2. Appreciate medical management; appreciate neuro management; appreciater cardio management 3. Pain management - Tylenol 4. DVT prophylaxis - Eliquis 5. GI ppx - Protonix 6. PT/OT - WBAT 7. Encourage incentive spirometer use Time with Patient: Less than 30
--- NOTE | 2021-05-04 17:14 | P.PN ---
Progress Note - Text Progress Note Date: 05/04/21 Chief Complaint: Shoulder pain This is a 70-year-old patient who follows with Dr. Codie woods. Chronic stable medical conditions include CAD with her NC 20 years ago with angioplasty 2, osteoarthritis of the joints, peptic ulcer disease with ulcer in the stomach and the duodenal bulb which patient was recently at [facility]. Patient was discharged from [facility] 2 days ago. She said that she felt she could be sleeping wrong but is having pain in the right shoulder. Also in the right wrist. With some swelling. She is also having some chest pressure. Slight dizziness. No radiation. Duration unknown. Unable to lift her right arm much. She noticed this when she left [facility]. In the ER she was found to be in atrial fibrillation with rapid ventricle rate. We'll start him on a Cardizem drip. Patient does state eliquis at home. Patient is accompanied by her granddaughter mica. Patient was admitted with atrial flutter-fibrillation rapid ventricular rate. Put on IV Cardizem drip. Reverted to sinus rhythm. Patient also complaining of pain in the right shoulder, some swelling of the right arm. Wrist swelling. Doppler ultrasound negative for DVT. X-rays of the wrist shoulder elbow negative for any fracture. Patient seen by vascular surgery, no vascular compromise. May 03: Patient has a Taz wrap on the right upper extremity. Swelling better. Seen by neurology. Suspecting brachial plexus injury. MRI ordered. Discussed with patient. Discussed with Dr. Lucas from neurology. Start patient on prednisone 60 mg for possible brachial plexus nerve injury. May 04: Some improvement. The right upper extremity. Taz wrap present. Oral intake fair. On oral prednisone. Pending brachial plexus MRI. Active Medications Acetaminophen (Acetaminophen Tab 500 Mg Tab) 500 mg PO QID [facility] Last Admin: 05/04/21 12:02 Dose: 500 mg Documented by: Albuterol Sulfate (Albuterol Nebulized 2.5 Mg/3 Ml) 2.5 mg INHALATION RT-Q6H PRN PRN Reason: Shortness Of Breath Last Admin: 05/04/21 08:31 Dose: 2.5 mg Documented by: Apixaban (Apixaban 5 Mg Tab) 5 mg PO BID [facility]; Protocol Last Admin: 05/04/21 09:03 Dose: 5 mg Documented by: Calcium Carbonate/Glycine (Calcium Carbonate Liquid 500 Mg/5 Ml Cup) 500 mg PO ACHS [facility] Last Admin: 05/04/21 12:02 Dose: 500 mg Documented by: Diclofenac Sodium (Diclofenac Sodium Gel 100 Gm Tube) 2 gm TOPICAL QID [facility]; Protocol Last Admin: 05/04/21 12:03 Dose: 2 gm Documented by: Losartan Potassium (Losartan 50 Mg Tab) 50 mg PO DAILY [facility] Last Admin: 05/04/21 09:03 Dose: 50 mg Documented by: Metoprolol Tartrate (Metoprolol Tartrate 25 Mg Tab) 25 mg PO BID [facility] Last Admin: 05/04/21 09:04 Dose: 25 mg Documented by: Naloxone HCl (Naloxone 0.4 Mg/Ml 1 Ml Vial) 0.2 mg IV Q2M PRN PRN Reason: Opioid Reversal Pantoprazole Sodium (Pantoprazole 40 Mg Tablet) 40 mg PO AC-BID [facility] Last Admin: 05/04/21 06:51 Dose: 40 mg Documented by: Prednisone (Prednisone 20 Mg Tab) 60 mg PO DAILY [facility] Last Admin: 05/04/21 09:03 Dose: 60 mg Documented by: Sucralfate (Sucralfate 1 Gm Tab) 1 gm PO AC-TID [facility] Last Admin: 05/04/21 12:02 Dose: 1 gm Documented by: Past medical history to include: NC 20 years ago with angioplasty 2, osteoarthritis, stomach and duodenal ulcer diagnosed 2 days ago. Social history: Granddaughter lives with her. Smoked a pack-a-day for 36 years stopped 20 years ago. Alcohol rarely. Family history: Colon cancer Physical examination: VITAL SIGNS: 97.6, 60, 17, 135/74, 96% room air GENERAL: Laying in bed, comfortable comfortable EYES: Pupils equal. Conjunctiva normal. HEENT: External appearance of nose and ears normal, oral cavity grossly normal. NECK: JVD not raised; masses not palpable. HEART: Heart sounds are regular no edema. LUNGS: Respiratory rate normal; decreased breath sounds. ABDOMEN: Soft, nontender, liver spleen not palpable, no masses palpable. PSYCH: Alert and oriented x3; mood and affect normal. MUSCULOSKELETAL:No Clubbing/cyanosis;muscles-grossly intact limited range of motion right shoulder at some point tenderness. Right arm in Taz wrap NEUROLOGICAL: Decreased nuclear radiologist in the right arm. INVESTIGATIONS, reviewed in the clinical context: May 03: White count 5.4 hemoglobin 12.1 potassium 3.8 creatinine 0.58 White count 5.9 hemoglobin 13 platelets 266 sodium 136 potassium 4.2 creatinine 0.6 Troponin I 3 negative TSH 2.6 Coronavirus [PCR]: Not detected EKG tracing personally reviewed by me-atrial flutter with a ventricular rate of 144 Venous Doppler of the right upper extremity: Negative for DVT. Chest x-ray film personally reviewed by me-cardiomegaly Shoulder and right elbow x-ray: No fracture. Some evidence of DJD 2-D echocardiogram: Moderate concentric LVH. EF 55-60%. [id number] MR and TR and pulmonary hypertension. Right wrist x-ray: Demineralization. Moderate to severe triphasic joint space loss with subchondral cystic changes. Moderate narrowing of the first metacarpal with. To my moderate spurring. Soft tissue unremarkable. Assessment and plan: -Paroxysmal atrial flutter with a rapid vent rate., Now back into sinus rhythm. IV Cardizem drip-discontinued., Lopressor 25 mg twice a day. Cardiology cons ulted. Telemetry. Continue eliquis -Gastric ulcer and duodenal bulb ulcer recently diagnosed at [facility]. Continue PPI. Carafate. liquid Tums for symptomatic treatment. -Coronary artery disease with NC 20 years ago with angioplasty 2 -Hypertensive heart disease Lopressor -Mild to moderate mitral and tricuspid regurgitation Follow clinically -Essential hypertension Lopressor -Morbid obesity BMI 41.5 Weight loss measures -Right shoulder, right arm pain and some swelling. No fracture. No DVT. Seen by orthopedics and vascular. Evaluated by Dr. Lucas from neurology. Being worked up for possible brachial plexus injury. MRI ordered. prednisone 60 mg. Pending brachial plexus MRI. Continue with prednisone. Other medications to continue. Discussed with patient.
[2021-05-05] MEDS: PANTOPRAZOLE 40 MG TABLET PO SCH ×2 (08:06→17:32)
[2021-05-05] MEDS: SUCRALFATE 1 GM TAB PO SCH ×3 (08:06→17:32)
[2021-05-05] MEDS: predniSONE 20 MG TAB PO SCH (08:07)
[2021-05-05] MEDS: CALCIUM CARBONATE LIQUID 500 MG/5 ML CUP PO SCH ×4 (08:07→21:00)
[2021-05-05] MEDS: METOPROLOL TARTRATE 25 MG TAB PO SCH ×2 (08:07→21:00)
[2021-05-05] MEDS: ACETAMINOPHEN TAB 500 MG TAB PO SCH ×4 (08:07→22:19)
[2021-05-05] MEDS: LOSARTAN 50 MG TAB PO SCH (08:07)
[2021-05-05] MEDS: APIXABAN 5 MG TAB PO SCH ×2 (08:07→21:00)
[2021-05-05] MEDS: DICLOFENAC SODIUM GEL 100 GM TUBE TOPICAL SCH ×4 (08:10→22:20)
--- NOTE | 2021-05-05 13:46 | P.PN ---
Subjective Progress Note Date: 05/05/21 Principal diagnosis: Right arm pain/stiffness/swelling -cervical spondylosis Patient was seen at bedside this morning. Silver has compression sleeve on right arm. Patient says she thinks the compression sleeve helped with some of the swelling. She notes that the swelling has decreased over the past couple days. Patient states she is still unable to fully extend her right elbow. Patient denies chest pain, fever, shortness breath, nausea, vomiting, change in vision, loss of bowel/bladder control. Objective - Vital Signs Vital signs: Vital Signs Temp 97.7 F 05/05/21 05:00 Pulse 89 05/05/21 08:12 Resp 18 05/05/21 05:00 BP 165/73 05/05/21 08:12 Pulse Ox 95 05/05/21 05:00 Intake & Output 05/04/21 05/05/21 05/05/21 18:59 06:59 18:59 Intake Total 240 Balance 240 Weight 121 kg Intake: Oral 240 Other: Voiding Method Toilet Toilet Toilet Incontinent Incontinent Incontinent # Voids 2 1 - Exam focused RUE Negative for any erythema, ecchymosis, open fractures in the right upper extremity. Positive for mild edema to the right upper extremity. Moderate TTP along the right upper extremity at the elbow. NTTP throughout rest of exam. Patient has better range of motion in the right upper extremity but is still not able to fully extend right elbow. Limited shoulder abduction/forward elevation on in RUE. Motor 3+/5 throughout right upper extremity. Neurovascular status is intact. Radial pulse 2+, intact. Cap refill under 3 seconds. Negative Homans bilaterally - Labs CBC & Chem 7: 05/03/21 07:51 05/03/21 07:51 Labs: Microbiology - Last 24 Hours (Table) 05/02/21 18:31 Blood Culture - Preliminary Blood No Growth after 48 hours 05/02/21 18:36 Blood Culture - Preliminary Blood No Growth after 48 hours Assessment and Plan Assessment: 1. Right upper extremity pain/stiffness/swelling; cervical spondylosis Plan: 1. Right upper extremity pain/stiffness/swelling; cervical spondylosis- patient seen at bedside this morning. MRI of cervical spine completed shows C5-C6 and C6-C7 foraminal stenosis. At this time we do not recommend any emergent/urgent orthopedic surgical intervention. Awaiting MRI of brachial plexus to be perform ed. At this time we recommend conservative measures with PT/OT and medication for controlling symptoms. We will continue to follow patient while in hospital. 2. Appreciate medical management; appreciate neuro management; appreciate cardio management 3. Pain management - Tylenol 4. DVT prophylaxis - Eliquis 5. GI ppx - Protonix 6. PT/OT - WBAT 7. Encourage incentive spirometer use Time with Patient: Less than 30
[2021-05-05] MEDS: ALBUTEROL NEBULIZED 2.5 MG/3 ML INHALATION PRN (15:41)
--- NOTE | 2021-05-05 16:23 | P.PN ---
Progress Note - Text Progress Note Date: 05/05/21 Chief Complaint: Shoulder pain This is a 70-year-old patient who follows with Dr. Codie woods. Chronic stable medical conditions include CAD with her [place] 20 years ago with angioplasty 2, osteoarthritis of the joints, peptic ulcer disease with ulcer in the stomach and the duodenal bulb which patient was recently at [facility]. Patient was discharged from [facility] 2 days ago. She said that she felt she could be sleeping wrong but is having pain in the right shoulder. Also in the right wrist. With some swelling. She is also having some chest pressure. Slight dizziness. No radiation. Duration unknown. Unable to lift her right arm much. She noticed this when she left [facility]. In the ER she was found to be in atrial fibrillation with rapid ventricle rate. We'll start him on a Cardizem drip. Patient does state eliquis at home. Patient is accompanied by her granddaughter mica. Patient was admitted with atrial flutter-fibrillation rapid ventricular rate. Put on IV Cardizem drip. Reverted to sinus rhythm. Patient also complaining of pain in the right shoulder, some swelling of the right arm. Wrist swelling. Doppler ultrasound negative for DVT. X-rays of the wrist shoulder elbow negative for any fracture. Patient seen by vascular surgery, no vascular compromise. May 03: Patient has a Taz wrap on the right upper extremity. Swelling better. Seen by neurology. Suspecting brachial plexus injury. MRI ordered. Discussed with patient. Discussed with Dr. Lucas from neurology. Start patient on prednisone 60 mg for possible brachial plexus nerve injury. May 04: Some improvement. The right upper extremity. Taz wrap present. Oral intake fair. On oral prednisone. Pending brachial plexus MRI. May 05: Arm pain is better. Eating well. No fever no chills. On oral prednisone. Pending brachial plexus MRI now scheduled for tomorrow. Active Medications Acetaminophen (Acetaminophen Tab 500 Mg Tab) 500 mg PO QID JEREMY Last Admin: 05/05/21 13:02 Dose: 500 mg Documented by: Albuterol Sulfate (Albuterol Nebulized 2.5 Mg/3 Ml) 2.5 mg INHALATION RT-Q6H PRN PRN Reason: Shortness Of Breath Last Admin: 05/05/21 15:41 Dose: 2.5 mg Documented by: Apixaban (Apixaban 5 Mg Tab) 5 mg PO BID [facility]; Protocol Last Admin: 05/05/21 08:07 Dose: 5 mg Documented by: Calcium Carbonate/Glycine (Calcium Carbonate Liquid 500 Mg/5 Ml Cup) 500 mg PO ACHS [facility] Last Admin: 05/05/21 13:02 Dose: 500 mg Documented by: Diclofenac Sodium (Diclofenac Sodium Gel 100 Gm Tube) 2 gm TOPICAL QID [facility]; Protocol Last Admin: 05/05/21 13:03 Dose: 2 gm Documented by: Lorazepam (Lorazepam 2 Mg/Ml Inj) 1 mg IV ONCE PRN PRN Reason: claustrophobia Losartan Potassium (Losartan 50 Mg Tab) 50 mg PO DAILY [facility] Last Admin: 05/05/21 08:07 Dose: 50 mg Documented by: Metoprolol Tartrate (Metoprolol Tartrate 25 Mg Tab) 25 mg PO BID [facility] Last Admin: 05/05/21 08:07 Dose: 25 mg Documented by: Naloxone HCl (Naloxone 0.4 Mg/Ml 1 Ml Vial) 0.2 mg IV Q2M PRN PRN Reason: Opioid Reversal Pantoprazole Sodium (Pantoprazole 40 Mg Tablet) 40 mg PO AC-BID [facility] Last Admin: 05/05/21 08:06 Dose: 40 mg Documented by: Prednisone (Prednisone 20 Mg Tab) 60 mg PO DAILY [facility] Last Admin: 05/05/21 08:07 Dose: 60 mg Documented by: Sucralfate (Sucralfate 1 Gm Tab) 1 gm PO AC-TID [facility] Last Admin: 05/05/21 13:02 Dose: 1 gm Documented by: Past medical history to include: [place] 20 years ago with angioplasty 2, osteoarthritis, stomach and duodenal ulcer diagnosed 2 days ago. Social history: Granddaughter lives with her. Smoked a pack-a-day for 36 years stopped 20 years ago. Alcohol rarely. Family history: Colon cancer Physical examination: VITAL SIGNS: 98.2, 56, 16, 1 56 x 67, 94% room air GENERAL: Laying in bed, comfortable EYES: Pupils equal. Conjunctiva normal. HEENT: External appearance of nose and ears normal, oral cavity grossly normal. NECK: JVD not raised; masses not palpable. HEART: Heart sounds are regular no edema. LUNGS: Respiratory rate normal; decreased breath sounds. ABDOMEN: Soft, nontender, liver spleen not palpable, no masses palpable. PSYCH: Alert and oriented x3; mood and affect normal. MUSCULOSKELETAL:No Clubbing/cyanosis;muscles-grossly intact limited range of motion right shoulder at some point tenderness. 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 INVESTIGATIONS, reviewed in the clinical context: May 03: White count 5.4 hemoglobin 12.1 potassium 3.8 creatinine 0.58 White count 5.9 hemoglobin 13 platelets 266 sodium 136 potassium 4.2 creatinine 0.6 Troponin I 3 negative TSH 2.6 Coronavirus [PCR]: Not detected EKG tracing personally reviewed by me-atrial flutter with a ventricular rate of 144 Venous Doppler of the right upper extremity: Negative for DVT. Chest x-ray film personally reviewed by me-cardiomegaly Shoulder and right elbow x-ray: No fracture. Some evidence of DJD 2-D echocardiogram: Moderate concentric LVH. EF 55-60%. Hybs-vy-owqeyaae MR and TR and pulmonary hypertension. Right wrist x-ray: Demineralization. Moderate to severe triphasic joint space loss with subchondral cystic changes. Moderate narrowing of the first metacarpal with. To my moderate spurring. Soft tissue unremarkable. Assessment and plan: -Paroxysmal atrial flutter with a rapid vent rate., Now back into sinus rhythm. IV Cardizem drip-discontinued., Lopressor 25 mg twice a day. Cardiology consulted. Telemetry. Continue eliquis -Gastric ulcer and duodenal bulb ulcer recently diagnosed at [facility]. Continue PPI. Carafate. liquid Tums for symptomatic treatment. -Coronary artery disease with [place] 20 years ago with angioplasty 2 -Hypertensive heart disease Lopressor -Mild to moderate mitral and tricuspid regurgitation Follow clinically -Essential hypertension Lopressor -Morbid obesity BMI 41.5 Weight loss measures -Right shoulder, right arm pain and some swelling. No fracture. No DVT. Seen by orthopedics and vascular. Evaluated by Dr. Lucas from neurology. Being worked up for possible brachial plexus injury. MRI pending prednisone 60 mg. Pending brachial plexus MRI. Continue with prednisone. . Discussed with patient.
[2021-05-05 22:13] VITALS: RESP 18
[2021-05-06] MEDS: SUCRALFATE 1 GM TAB PO SCH ×3 (07:54→17:35)
[2021-05-06] MEDS: ACETAMINOPHEN TAB 500 MG TAB PO SCH ×3 (07:54→17:35)
[2021-05-06] MEDS: CALCIUM CARBONATE LIQUID 500 MG/5 ML CUP PO SCH ×4 (07:54→21:09)
[2021-05-06] MEDS: predniSONE 20 MG TAB PO SCH (07:55)
[2021-05-06] MEDS: APIXABAN 5 MG TAB PO SCH ×2 (07:55→21:08)
[2021-05-06] MEDS: PANTOPRAZOLE 40 MG TABLET PO SCH ×2 (07:55→17:35)
[2021-05-06] MEDS: DICLOFENAC SODIUM GEL 100 GM TUBE TOPICAL SCH ×3 (07:55→17:36)
[2021-05-06] MEDS: LOSARTAN 50 MG TAB PO SCH (07:55)
[2021-05-06] MEDS: METOPROLOL TARTRATE 25 MG TAB PO SCH ×2 (07:55→21:09)
[2021-05-06] MEDS ORDERED: LORazepam 2 MG/ML INJ IV PRN (08:00)
--- NOTE | 2021-05-06 09:08 | P.PN ---
Subjective Progress Note Date: 05/05/21 This is a telemedicine neurology follow-up performed today on 05/05/2021. Patient feels her right arm symptoms have 80% improved. She continues to have pain from neck to the shoulder and the ice pack is helping. Her swelling in the right arm is much improved. She continues to have rash pointing toward red dots puffy spots in the right hand fingers and a few involving the back of some of the fingers. A similar rash also noticeable in the palm of the left hand over the thenar region. Patient's daughter was also present. She states that patient has previously been present in tick heavy areas. Patient does not remember if she was ever bitten by a tick. Never had any bull's eye rash that she remembers. Objective - Vital Signs Vital signs: Vital Signs Temp 98.1 F 05/06/21 05:00 Pulse 54 L 05/06/21 07:55 Resp 18 05/06/21 05:00 BP 160/76 05/06/21 07:55 Pulse Ox 98 05/06/21 05:00 Intake & Output 05/05/21 05/06/21 05/06/21 18:59 06:59 18:59 Intake Total 240 640 Balance 240 640 Weight 118 kg Intake: Oral 240 640 Other: Voiding Method Toilet Toilet Incontinent Incontinent # Voids 3 2 - Exam Patient's mental status, speech and language functions are normal. Cranial nerves are normal. No Asher's. Pupils are round and reacting. On muscle strength testing right/left deltoid 5/5, triceps 5-/5, biceps 5/5, dietary services manager 4/5. Interossei 5/5. She is not having as much pain as previously. - Labs CBC & Chem 7: 05/03/21 07:51 05/03/21 07:51 Labs: Microbiology - Last 24 Hours (Table) 05/02/21 18:31 Blood Culture - Preliminary Blood No Growth after 72 hours 05/02/21 18:36 Blood Culture - Preliminary Blood No Growth after 72 hours Assessment and Plan Assessment: * Acute onset (4 days duration) of right arm pain, weakness and numbness. Examination reveals mildly decreased strength in multiple myotomes of the right upper limb, with significant loss of reflex of the right biceps and brachioradialis (C5-6). Probable brachial plexopathy, less likely radiculopathy. Exact cause remains uncertain. No trauma. Her right arm weakness has improved since started on high-dose steroids. * Right arm swelling, of unclear etiology. No evidence of DVT in the right upper extremity. * New onset atrial fibrillation, started on Eliquis. Plan: * MRI of the right brachial plexus with and without contrast still pending. * MRI of the cervical spine revealed no evidence for disc herniation or significant spinal canal stenosis. I personally reviewed MRI of the cervical spine, and there is bulging disks at C4 5, C5 6 and C6 7 levels. No significant spinal stenosis. Probably not the cause of her right arm symptoms. * Hemoglobin A1c 5.5, Lyme titer pending * Patient on prednisone 60 mg daily. * Patient's rash in the right > left hand is of unclear cause. Suggest dermatology consultation. * Patient states her symptoms in the right arm has 80% improved. If the MRI of the brachial plexus is not significant, then patient is clear for discharge on tapering dose of prednisone and follow up with neurologist as an outpatient for perhaps EMG of right upper limb. * Dr. Man Pedro resuming neurology service in the morning.
[2021-05-06 13:06] VITALS: TEMP 97.9
--- NOTE | 2021-05-06 16:08 | P.PN ---
Subjective Progress Note Date: 05/06/21 Principal diagnosis: Right arm pain/stiffness/swelling -cervical spondylosis Patient was seen at bedside this afternoon post-MRI on brachial plexus. patient says she is very tired and would just like to rest at this time. Patient says she thinks the compression sleeve helped with some of the swelling. She notes that the swelling has decreased over the past couple days. Patient states she is still unable to fully extend her right elbow. Patient denies chest pain, fever, shortness breath, nausea, vomiting, change in vision, loss of bowel/bladder control. Objective - Vital Signs Vital signs: Vital Signs Temp 97.9 F 05/06/21 12:19 Pulse 55 L 05/06/21 12:19 Resp 18 05/06/21 12:19 BP 150/84 05/06/21 12:19 Pulse Ox 97 05/06/21 12:19 Intake & Output 05/05/21 05/06/21 05/06/21 18:59 06:59 18:59 Intake Total 240 640 Balance 240 640 Weight 118 kg Intake: Oral 240 640 Other: Voiding Method Toilet Toilet Toilet Incontinent Incontinent Incontinent # Voids 3 2 - Exam focused RUE Negative for any erythema, ecchymosis, open fractures in the right upper extremity. Positive for mild edema to the right upper extremity. Moderate TTP along the right upper extremity at the elbow. NTTP throughout rest of exam. Patient has better range of motion in the right upper extremity but is still not able to fully extend right elbow. Limited shoulder abduction/forward elevation on in RUE. Motor 3+/5 throughout right upper extremity. Neurovascular status is intact. Radial pulse 2+, intact. Cap refill under 3 seconds. Negative Homans bilaterally - Labs CBC & Chem 7: 05/03/21 07:51 05/03/21 07:51 Labs: Microbiology - Last 24 Hours (Table) 05/02/21 18:31 Blood Culture - Preliminary Blood No Growth after 72 hours 05/02/21 18:36 Blood Culture - Preliminary Blood No Growth after 72 hours Assessment and Plan Assessment: 1. Right upper extremity pain/stiffness/swelling; cervical spondylosis Plan: 1. Right upper extremity pain/stiffness/swelling; cervical spondylosis- patient seen at bedside this morning. MRI of cervical spine completed shows C5-C6 and C6-C7 foraminal stenosis. At this time we do not recommend any emergent/urgent orthopedic surgical intervention. Awaiting results of MRI of brachial plexus At this time we recommend conservative measures with PT/OT and medication for controlling symptoms. Patient stable from orthopedic standpoint for discharge home. Recommend patient to follow up in outpatient setting. At this time orthope dics is signing off. Please do not hesitate to contact us for any further questions. 2. Appreciate medical management; appreciate neuro management; appreciate cardio management 3. Pain management - Tylenol 4. DVT prophylaxis - Eliquis 5. GI ppx - Protonix 6. PT/OT - WBAT 7. Encourage incentive spirometer use Time with Patient: Less than 30
[2021-05-06 20:17] VITALS: BP 164/80; PULSE 62
--- NOTE | 2021-05-06 21:23 | MR ---
EXAMINATION TYPE: MR brachial plexus RT wo/w con DATE OF EXAM: 05/06/2021 COMPARISON: None HISTORY: Acute rt shoulder pain, brachial plexopathy. CONTRAST: Standard multiplanar, multisequence MRI departmental protocol images were obtained without contrast a nd with 12 mL intravenous Gadavist gadolinium contrast. The cervical vertebrae are fairly normal alignment. There is some degenerative disc space narrowing a nd mild posterior and anterior disc bulging in the cervical spine at C4-5 and C5-6 and C6-7. There is a mild relative spinal stenosis. There is no evidence of cervical paraspinal mass. There is no evide nce of a soft tissue mass. There is no evidence of a mass at the right lung apex. The right upper rib s appear intact. No evidence of a right-sided brachial plexus mass. No abnormality demonstrated in th e right subclavian artery and vein. There is no evidence of pathologic enhancement. There is normal e nhancement of the jugular vein. IMPRESSION: No evidence of focal abnormality of the brachial plexus. Spondylotic changes in the cervical spine with some mild relative spinal stenosis. Multilevel mild ce rvical disc herniation.
[2021-05-07 10:51] LABS: Lyme IgG/IgM 0.06 Index
--- NOTE | 2021-05-07 19:41 | P.DS ---
Providers Date of admission: 05/02/21 11:20 Expected date of discharge: 05/06/21 Attending physician: Rikki Walter Consults: 05/02/21 01:34 Consult Physician Urgent Consulting Provider: [facility] Consult Reason/Comments: acute chest pain, new onset afib Do you want consulting provider notified?: Yes 05/02/21 13:52 Consult Physician Routine Consulting Provider: Akira Morales Consult Reason/Comments: shoulder/wrist pain Do you want consulting provider notified?: Yes 05/03/21 07:59 Consult Physician Urgent Consulting Provider: Man Pedro Consult Reason/Comments: right hand tremor; right arm weakness Do you want consulting provider notified?: Yes Primary care physician: Codie Woods [facility] Course: Chief Complaint: Shoulder pain This is a 70-year-old patient who follows with Dr. Codie woods. Chronic stable medical conditions include CAD with her [place] 20 years ago with angioplasty 2, osteoarthritis of the joints, peptic ulcer disease with ulcer in the stomach and the duodenal bulb which patient was recently at [facility]. Patient was discharged from [facility] 2 days ago. She said that she felt she could be sleeping wrong but is having pain in the right shoulder. Also in the right wrist. With some swelling. She is also having some chest pressure. Slight dizziness. No radiation. Duration unknown. Unable to lift her right arm much. She noticed this when she left [facility]. In the ER she was found to be in atrial fibrillation with rapid ventricle rate. We'll start him on a Cardizem drip. Patient does state eliquis at home. Patient is accompanied by her granddaughter mica. Patient was admitted with atrial flutter-fibrillation rapid ventricular rate. Put on IV Cardizem drip. Reverted to sinus rhythm. Patient also complaining of pain in the right shoulder, some swelling of the right arm. Wrist swelling. Doppler ultrasound negative for DVT. X-rays of the wrist shoulder elbow negative for any fracture. Patient seen by vascular surgery, no vascular compromise. Also seen by orthopedics and urology. On the suspicion of brachial plexus injury steroids were started. She did feel better. Taz wrap was used for the right arm. Swelling went down. May 06: Patient's MRI results were not available by the time patient left. Provisionally patient is put on a tapering dose of steroids. MRI of the brachial plexus did not show any obvious involvement. No no distress was done after significant steroids are given and patient was feeling much better. Mohsen cruz will follow-up with neurology outpatient. Discussion and discharge planning more than 35 minutes Past medical history to include: [place] 20 years ago with angioplasty 2, osteoarthritis, stomach and duodenal ulcer diagnosed 2 days ago. Social history: Granddaughter lives with her. Smoked a pack-a-day for 36 years stopped 20 years ago. Alcohol rarely. Family history: Colon cancer Physical examination: VITAL SIGNS: 97.9, 62, 18, 160/80, 97% on room air GENERAL: Laying in bed, comfortable EYES: Pupils equal. Conjunctiva normal. HEENT: External appearance of nose and ears normal, oral cavity grossly normal. NECK: JVD not raised; masses not palpable. HEART: Heart sounds are regular no edema. LUNGS: Respiratory rate normal; decreased breath sounds. ABDOMEN: Soft, nontender, liver spleen not palpable, no masses palpable. PSYCH: Alert and oriented x3; mood and affect normal. MUSCULOSKELETAL:No Clubbing/cyanosis;muscles-grossly intact. Improved range of motion right shoulder . Right arm swelling much improved NEUROLOGICAL: Weakness in the right thumb better INVESTIGATIONS, reviewed in the clinical context: ESR 48 uric acid 3.6 CRP 5.3 lyme Screen IgG and IgM: Negative May 03: White count 5.4 hemoglobin 12.1 potassium 3.8 creatinine 0.58 White count 5.9 hemoglobin 13 platelets 266 sodium 136 potassium 4.2 creatinine 0.6 Troponin I 3 negative TSH 2.6 Coronavirus [PCR]: Not detected EKG tracing personally reviewed by nm-atrial flutter with a ventricular rate of 144 Venous Doppler of the right upper extremity: Negative for DVT. Chest x-ray film personally reviewed by nm-cardiomegaly Shoulder and right elbow x-ray: No fracture. Some evidence of DJD 2-D echocardiogram: Moderate concentric LVH. EF 55-60%. [id number] MR and TR and pulmonary hypertension. Right wrist x-ray: Demineralization. Moderate to severe triphasic joint space loss with subchondral cystic changes. Moderate narrowing of the first metacarpal with. To my moderate spurring. Soft tissue unremarkable. Assessment and plan: -Paroxysmal atrial flutter with a rapid vent rate., back into sinus rhythm. Lopressor 25 mg twice a day. Cardiology consulted. Telemetry. eliquis -Gastric ulcer and duodenal bulb ulcer recently diagnosed at [facility]. Continue PPI. Carafate. liquid Tums for symptomatic treatment. -Coronary artery disease with [place] 20 years ago with angioplasty 2 -Hypertensive heart disease Lopressor -Mild to moderate mitral and tricuspid regurgitation Follow clinically -Essential hypertension Lopressor -Morbid obesity BMI 41.5 Weight loss measures -Right shoulder, right arm pain and some swelling. Possible brachial plexus injury: Back to No fracture. No DVT. Seen by orthopedics and vascular. Evaluated by Dr. Lucas from neurology. . MRI negative clinically responding to steroids. Discharged on prednisone taper Disposition: Home Patient Condition at Discharge: Stable Plan - Discharge Summary New Discharge Prescriptions: New Apixaban [Eliquis] 5 mg PO BID 30 Days #60 tab Metoprolol Tartrate [Lopressor] 25 mg PO BID 30 Days #60 tab predniSONE 0 mg PO DIRECTED #40 tab Acetaminophen Tab [Tylenol] 500 mg PO QID tab Diclofenac Sodium Gel [Voltaren Gel] 2 gm TOPICAL QID #1 gm Continue Albuterol Sulfate [Albuterol Sulfate Hfa] 2 puff PO RT-Q6H PRN PRN Reason: Shortness Of Breath Sucralfate [Carafate] 1 gm PO TID Omeprazole 40 mg PO BID Methocarbamol [Robaxin-750] 750 mg PO TID PRN PRN Reason: Pain Losartan [Cozaar] 50 mg PO DAILY Discharge Medication List Albuterol Sulfate [Albuterol Sulfate Hfa] 2 puff PO RT-Q6H PRN 05/01/21 [History] Losartan [Cozaar] 50 mg PO DAILY 05/01/21 [History] Methocarbamol [Robaxin-750] 750 mg PO TID PRN 05/01/21 [History] Omeprazole 40 mg PO BID 05/01/21 [History] Sucralfate [Carafate] 1 gm PO TID 05/01/21 [History] Apixaban [Eliquis] 5 mg PO BID 30 Days #60 tab 05/02/21 [Rx] Metoprolol Tartrate [Lopressor] 25 mg PO BID 30 Days #60 tab 05/02/21 [Rx] Acetaminophen Tab [Tylenol] 500 mg PO QID tab 05/06/21 [Rx] Diclofenac Sodium Gel [Voltaren Gel] 2 gm TOPICAL QID #1 gm 05/06/21 [Rx] predniSONE 0 mg PO DIRECTED #40 tab 05/06/21 [Rx] Follow up Appointment(s)/Referral(s): Shilo Escamilla DO [STAFF PHYSICIAN] - 2 Weeks (The office will call you with an appointment time and date. ) Codie Woods DO [Primary Care Provider] - 05/09/21 3:00 pm Ling Foster MD [Medical Doctor] - 1 Week Activity/Diet/Wound Care/Special Instructions: Kaylahbillienilda copay is $40.40, Peter will apply a coupon for the 1st free month. steroids per neurology after MRI results Discharge Disposition: HOME SELF-CARE
== END 2021-05-06 22:27 | disposition home or self-care (01) | DRG 309 ==
LOC: EC 20:55 → 3SCARD 05-02 01:33 → OBSVTOIN 05-02 11:20 → 3SCARD 05-02 16:35 → 5NMEDONC 05-04 00:01
PROVIDERS: ADMIT Hospitalist; ATTEND Hospitalist
DX: I48.92 Unspecified atrial flutter (principal); Z68.41 Body mass index [BMI] 40.0-44.9, adult; I48.0 Paroxysmal atrial fibrillation; I11.9 Hypertensive heart disease without heart failure; R19.7 Diarrhea, unspecified; E66.01 Morbid (severe) obesity due to excess calories; F40.240 Claustrophobia; G54.0 Brachial plexus disorders; I08.1 Rheumatic disorders of both mitral and tricuspid valves; I25.10 Atherosclerotic heart disease of native coronary artery without angina pectoris; I25.2 Old myocardial infarction; I27.20 Pulmonary hypertension, unspecified; I49.3 Ventricular premature depolarization; K21.9 Gastro-esophageal reflux disease without esophagitis; K26.9 Duodenal ulcer, unspecified as acute or chronic, without hemorrhage or perforation; K44.9 Diaphragmatic hernia without obstruction or gangrene; Z20.822 Contact with and (suspected) exposure to COVID-19; M19.011 Primary osteoarthritis, right shoulder; M47.812 Spondylosis without myelopathy or radiculopathy, cervical region; Z79.01 Long term (current) use of anticoagulants; Z79.899 Other long term (current) drug therapy; Z80.0 Family history of malignant neoplasm of digestive organs; Z85.038 Personal history of other malignant neoplasm of large intestine; Z87.11 Personal history of peptic ulcer disease; Z87.891 Personal history of nicotine dependence
CPT/HCPCS: 36415; 71045; 71552; 72141; 80048; 80053; 83036; 83735; 83880; 84443; 84484; 84550; 85025; 85610; 85652; 85730; 86140; 86618; 87040; 87635; 93005; 93306; 94640; 99285

== ENCOUNTER → 2021-09-02 | Outpatient (CLI) | payer MEDICARE ==
--- NOTE | 2021-09-02 22:22 | CT ---
EXAMINATION TYPE: CT lumbar spine wo con DATE OF EXAM: 09/02/2021 6:07 PM COMPARISON: MRI dated 03/06/2010 HISTORY: Low back pain, Scoliosis CT DLP: 1653.3 mGycm Automated exposure control for dose reduction was used. Technique: Unenhanced CT of the lumbar spine was performed. Bone and soft tissue window settings are submitted as well as coronal and sagittal reconstructions. Findings: Levoscoliosis of the thoracolumbar junction. Grade 1 anterolisthesis of L4 over L5. No definite verte bral body collapse or acute displaced fracture. Degenerative changes of the lumbar spine with multilevel opposing endplate osteophytosis, degenerated discs and severe multilevel facet osteoarthropathy. L5-S1 disc calcification and subchondral sclerot ic changes are also noted. Severe left T10-11 neuroforaminal stenosis. L1-L2: No significant disc disease, central spinal canal stenosis or neuroforaminal stenosis. L2-L3: Mild diffuse posterior disc bulge with focal left foraminal protrusion associated with severe bilateral facet osteoarthropathy and prominent posterior epidural fat, causing moderate central spina l canal stenosis and severe left neuroforaminal stenosis, compressing the left L2 nerve root L3-L4: Mild anterolisthesis with diffuse posterior disc bulge and focal right foraminal protrusion, a ssociated with severe bilateral facet osteoarthropathy and prominent posterior epidural fat, causing moderate to severe central spinal canal stenosis, mild right and moderate to severe left neuroforamin al stenosis. L4-L5: Grade 1 anterolisthesis with severe bilateral facet osteoarthropathy and diffuse posterior dis c bulge associated with focal right foraminal protrusion, slightly prominent posterior epidural fat a nd posterior osteophytosis, causing mild central spinal canal stenosis and mild bilateral neuroforami nal stenosis. L5-S1: Markedly degenerated disc with disc calcification, severe left facet osteoarthropathy and post erior osteophytosis, causing no significant central spinal canal stenosis and severe left neuroforami nal stenosis compressing the left L5 nerve root. Suspected conjoined right S1 and S2 nerve roots. Scattered arterial atherosclerotic calcification. Focal cortical defect at the posterior aspect of th e right kidney. 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 Suspected left parap elvic renal cysts. Subcentimeter retroperitoneal lymph nodes, nonspecific. No paraspinal lesion. IMPRESSION: Advanced degenerative changes of the lumbar spine with multilevel DDD, central spinal canal stenosis and neuroforaminal stenosis as detailed above. Recommend clinical correlation and correlation with MR I results left clinically required. Other findings as described above.
== END | disposition home or self-care (01) ==
LOC: RADCTMAIN 14:10
PROVIDERS: ATTEND Orthopaedic Surgery
DX: M48.061 Spinal stenosis, lumbar region without neurogenic claudication (principal); M47.816 Spondylosis without myelopathy or radiculopathy, lumbar region; M51.36 Other intervertebral disc degeneration, lumbar region
CPT/HCPCS: 72131

== ENCOUNTER 2021-12-30 06:12 | Day surgery (SDC) | payer MEDICARE ==
[~2021-12-30 06:12] MED LIST changes: +DEXAMETHASONE SOD PHOSPHATE 4 MG/ML 1 ML VIAL IV ONE; +HEPARIN SODIUM,PORCINE/PF 5,000 UNIT/0.5 ML SYRINGE SQ PRN; +HYDROmorphone 0.5 MG/0.5 ML SYRINGE IVP PRN; +LIDOCAINE 1% (10MG/ML) FOR IV START INTRADERMA PRN; +ONDANSETRON 4 MG/2 ML VIAL IVP ONE; +ONDANSETRON 4 MG/2 ML VIAL IVP PRN
[2021-12-30 07:07] VITALS: RESP 16
[2021-12-30] MEDS ORDERED: ACETAMINOPHEN TAB 500 MG TAB ONE (07:29)
[2021-12-30] MEDS ORDERED: NEOSTIGMINE 1 MG/ML 10 ML VIAL ONE (07:33)
[2021-12-30] MEDS ORDERED: ROCURONIUM 10 MG/ML (5 ML VIAL) IV ONE (07:33)
[2021-12-30] MEDS ORDERED: fentaNYL (PF) 50 MCG/ML 2 ML AMP ONE (07:33)
[2021-12-30] MEDS ORDERED: LIDOCAINE 2% INJ 20 MG/ML (2 ML VIAL) ONE (07:33)
[2021-12-30] MEDS ORDERED: GLYCOPYRROLATE 0.2 MG/ML 2 ML VIAL ONE (07:33)
[2021-12-30] MEDS ORDERED: SUCCINYLCHOLINE CHLORIDE 200 MG/10 ML VIAL IV ONE (07:33)
[2021-12-30] MEDS ORDERED: PROPOFOL 10 MG/ML 20 ML VIAL IV ONE (07:33)
[2021-12-30] MEDS ORDERED: MIDAZOLAM 2 MG/2 ML VIAL ONE (07:33)
--- NOTE | 2021-12-30 07:41 | P.GSHP ---
History of Present Illness H&P Date: 12/30/21 Chief Complaint: Back lipomas 71-year-old female here today for lipoma excision. She has had these for the last 4-5 years. Increasing slightly in size. Sore frequently. They seem to change size intermittently however. Today the patient is able to palpate 4 separate lipomatous masses left mid back. Past Medical History Past Medical History: Atrial Fibrillation, Hypertension, Myocardial Infarction (MO), Musculoskeletal Disorder, Rheumatoid Arthritis (RA) Additional Past Medical History / Comment(s): Back pain, hx ulcers. rt hip needs replacement. 05/14 [facility] for back pain and pain in side dx for ulcers. went into [facility] 2 days after discharge from [facility] for rt arm edema and stayed for afib. Placed on heart monitor and in afib 10% of the time. Put on xarelto. arthritis generalized. left back lipoma for 4 yrs, now hurting. Last Myocardial Infarction Date:: 2001 History of Any Multi-Drug Resistant Organisms: None Reported Past Surgical History: Heart Catheterization Additional Past Surgical History / Comment(s): Abd. tumor/ ?benign/ no further TX; pain procedures, colonoscopy Past Anesthesia/Blood Transfusion Reactions: No Reported Reaction Smoking Status: Former smoker - Past Family History Brother(s) Family Medical History: Cancer Additional Family Medical History / Comment(s): Colon Ca Father Family Medical History: Myocardial Infarction (MO) Mother Family Medical History: Cancer Additional Family Medical History / Comment(s): breast Sister(s) Family Medical History: Cancer Additional Family Medical History / Comment(s): ovarian Medications and Allergies Home Medications Medication Instructions Recorded Confirmed Type Losartan [Cozaar] 50 mg PO DAILY 05/01/21 12/26/21 History methocarbamoL [Robaxin-750] 750 mg PO TID PRN 05/01/21 12/26/21 History Meloxicam [Mobic] 7.5 mg PO DAILY 12/26/21 12/26/21 History Metoprolol Tartrate [Lopressor] 25 mg PO DAILY 12/26/21 12/26/21 History Rivaroxaban [Xarelto] 1 tab PO DAILY 12/26/21 12/26/21 History Allergies Allergy/AdvReac Type Severity Reaction Status Date / Time cyclobenzaprine Allergy Unknown Verified 12/30/21 06:52 [From Flexeril] Sulfa (Sulfonamide Allergy states she Verified 12/30/21 06:52 Antibiotics) feels terrible, can't move Surgical - Exam Vital Signs Temp Pulse Resp BP Pulse Ox 97.1 F L 59 L 16 155/71 100 12/30/21 07:06 12/30/21 07:06 12/30/21 07:06 12/30/21 07:06 12/30/21 07:06 Physical exam: General: Well-developed, well-nourished HEENT: Normocephalic, sclerae nonicteric Abdomen: Nontender, nondistended Extremities: No edema, left lower mid back with 4 1-2 cm lipomatous masses, these are tender, the larger inferior lipomatous mass not able to be palpated by myself or the patient today. Neuro: Alert and oriented Assessment and Plan (1) Lipoma Narrative/Plan: Will proceed with excision multiple back lipomas at this time. Risks of bleeding, infection, scarring, numbness, recurrence reviewed. She understands and wishes to proceed. Current Visit: Yes Status: Acute Code(s): D17.9 - BENIGN LIPOMATOUS NEOPLASM, UNSPECIFIED SNOMED Code(s): 68398860
[2021-12-30] MEDS ORDERED: BUPIVACAINE (PF) 0.25% 30 ML VIAL SQ ONE ×2 (08:05)
[2021-12-30] MEDS ORDERED: traMADol 50 MG TAB PO PRN (08:29)
[2021-12-30] MEDS ORDERED: NALOXONE 0.4 MG/ML 1 ML VIAL IV PRN (08:29)
--- NOTE | 2021-12-30 08:31 | P.OP ---
Date of Procedure: 12/30/21 Procedure(s) Performed: PREOPERATIVE DIAGNOSIS: Multiple back lipomas POSTOPERATIVE DIAGNOSIS: Same PROCEDURE: Excision four back lipomas with intermediate closure SURGEON: Eva EBL: Alin Epstein ANESTHESIA: Gen. COMPLICATIONS: None OPERATIVE PROCEDURE: Patient placed in the operating table in the right decubitus position after general anesthesia was achieved. The patient had 4 lipomatous masses in the left lower back. These were excised through 3 separate incisions. Each measured 1.5-2 cm in size. The subcutaneous tissues were inspected. No bleeding was seen. Subcutaneous tissues were then closed using interrupted 3-0 Vicryl sutures. Skin closed using interrupted 4-0 Monocryl sutures. Skin glue was then applied. Length of any intermediate closure 8 cm. DISPOSITION: Stable to recovery room
[2021-12-30 08:37] VITALS: TEMP 97
[2021-12-30 09:34] VITALS: PULSE 45
[2021-12-30 09:49] VITALS: BP 152/85
== END 2021-12-30 10:05 | disposition home or self-care (01) ==
LOC: OR 06:12
PROVIDERS: ATTEND Surgery
DX: D17.1 Benign lipomatous neoplasm of skin and subcutaneous tissue of trunk (principal); I48.91 Unspecified atrial fibrillation; I10 Essential (primary) hypertension; I25.2 Old myocardial infarction; M06.9 Rheumatoid arthritis, unspecified; Z87.39 Personal history of other diseases of the musculoskeletal system and connective tissue; Z87.891 Personal history of nicotine dependence; Z80.0 Family history of malignant neoplasm of digestive organs; Z82.49 Family history of ischemic heart disease and other diseases of the circulatory system; Z80.3 Family history of malignant neoplasm of breast; Z80.41 Family history of malignant neoplasm of ovary; Z79.899 Other long term (current) drug therapy; Z88.2 Allergy status to sulfonamides
CPT/HCPCS: 88304; 84132; 21931; J2250; J0330; J1100; J2710; J0690; J2405; J3010; J2704; J1644; J2001

== ENCOUNTER → 2022-01-08 | Outpatient (CLI) | payer MEDICARE ==
[2022-01-08 10:53] VITALS: BP 176/74; PULSE 59; RESP 18; TEMP 97.7
--- NOTE | 2022-01-08 14:45 | P.PAINPG ---
PQRS Measure Charge Sheet Comment: HISTORY OF PRESENT ILLNESS: 71 yr old female as a referral from Dr Morales presents today w severe and chronic LBO secondary to for evaluation. Pt states her pain level is currently at 8/10 in intensity, constant, localized in the lower lumbar spine, dull in character w shooting towards . Pain is provoked by sitting/ standing in one position for periods of 15 min or more. Pain is relieved by medications (Mobic, Neurontin), PT x 6-8 wks in August 2021, walking, heat, repositioning and rest. PMH: Atrial Fibrillation, Hypertension, FL (2001), Musculoskeletal Disorder, RA, R Hip OA PSH: Heart Catheterization, Colonoscopy SH: Former tobacco user, No ETOH abuse, No illicit drug use FH: Bro- Colon CA. Fa- FL. Mo- Breast CA. Sis- Ovarian CA. All: See list Meds: See lsit REVIEW OF ORGAN SYSTEMS: CONSTITUTIONAL: No fevers or chills. No recent weight loss. NEUROLOGICAL: + numbness and tingling along the distal extremities. No seizure disorders or headaches. MUSCULOSKELETAL: + pain PSYCHIATRIC: Denies current depression or suicidal thoughts. Physical Examinations : Constitutional : Cooperative , not in acute distress . Neurologic : Cranial nerve II to XII intact. No focal neurological deficits. Psychiatric : alert & oriented x 3. Matching mood & appropriate affect. Judgment & insight intact. Musculoskeletal : Cervical Spine Motor strength in the deltoid and biceps: Normal right side. Normal Left side Motor strength biceps and the wrist extensors: Normal right side . Normal left side Motor strength in the triceps muscle: Normal right side. Normal left side Deep tendon reflexes: Normal at the biceps. Normal at Brachioradialis. Normal at triceps Vertebral body tenderness to deep palpation over Cervical facet loading test: positive bilaterally Spurling test: positive bilaterally Neck distraction test: positive bilaterally Rebecca sign: positive bilaterally Lumbar spine Motor strength lower extremities ,thigh and legs 5/5 Right side , 5/5 Left side Deep tendon reflexes : Normal Knee Jerk. Normal Ankle Jerk Vertebral body tenderness over L3 Lumbar facet Loading Test: positive Right / positive Left Range of motion of the lumbar spine Flexion 30 degrees, extension 10 degrees Straight Leg Raise test: Left/ Right positive at degree Sayda test: positive right / positive left. Severe tenderness over the Sacroiliac joint on the Right / Left sides Gaenslen test: positive bilaterally Seated flexion test: positive bilaterally. Sacral spine : Severe tenderness over the Sacroiliac joint: right side / left side Range of motion: Flexion of the lumbar spine <60 degrees Range of motion: Extension of the lumbar spine <20 degrees Gaenslen's Test positive Fransico's Test positive Sayda test: positive right side / left side Thigh Thrust Test Sacral Thrust Test Imaging: MRI without contrast of the lumbar spine from 07/05/21 reviewed Assessment/ Plan : Lumbar DDD , lumbar spondylosis Recommendation of TREVON L3-L4. May need a series of injections, up to 3 within a 6 mo period, for optimal pain relief. Risks, benefits of procedure discussed and patient verbalized understanding. Admits to aspirin or anti- coagulant use or medical history of diabetes. Protocol for discontinuation/ continuation of medications mendez procedure discussed. All questions answered. I have spent greater than 30 minutes on patient care today. Dr Berry was available by phone for the evaluation of this patient. The time was used to review the medical records including relevant urine studies and Prescription history (MAPs), review of the available imaging, evaluation and examination of the patient, coordination of care with the medical staff and if applicable referring physicians, as well as creation of the medical record PQRS Narrative: Smoking Status Former smoker Home Medications: Ambulatory Orders Losartan [Cozaar] 50 mg PO DAILY 05/01/21 methocarbamoL [Robaxin-750] 750 mg PO TID PRN 05/01/21 Meloxicam [Mobic] 7.5 mg PO DAILY 12/26/21 Metoprolol Tartrate [Lopressor] 25 mg PO DAILY 12/26/21 Rivaroxaban [Xarelto] 1 tab PO DAILY 12/26/21 Controlled Substance Measures - Controlled Substance Measures Is patient prescribed a controlled substance at discharge?: No
== END ==
LOC: PNWHC3 10:07
PROVIDERS: ATTEND Specialist
DX: M47.26 Other spondylosis with radiculopathy, lumbar region (principal); M48.02 Spinal stenosis, cervical region; I10 Essential (primary) hypertension; I25.2 Old myocardial infarction; I48.91 Unspecified atrial fibrillation; M06.9 Rheumatoid arthritis, unspecified; M16.11 Unilateral primary osteoarthritis, right hip; M51.36 Other intervertebral disc degeneration, lumbar region; Z87.891 Personal history of nicotine dependence; M43.10 Spondylolisthesis, site unspecified
CPT/HCPCS: 99211

== ENCOUNTER 2022-02-27 06:15 | Day surgery (SDC) | payer MEDICARE ==
[2022-02-27 06:57] VITALS: TEMP 97.2
[2022-02-27] MEDS ORDERED: LACTATED RINGERS 1,000 ML IV ONE (07:10)
[2022-02-27] MEDS ORDERED: methylPREDNISolone ACETATE 80 MG/ML 1 ML VIAL ONE (07:16)
[2022-02-27] MEDS ORDERED: fentaNYL (PF) 50 MCG/ML 2 ML AMP ONE (07:16)
[2022-02-27] MEDS ORDERED: IOPAMIDOL M200 10 ML VIAL ONE (07:16)
[2022-02-27] MEDS ORDERED: MIDAZOLAM 2 MG/2 ML VIAL ONE (07:16)
--- NOTE | 2022-02-27 07:29 | P.PCN ---
Date of Procedure: 02/27/22 Procedure(s) Performed: PREOPERATIVE DIAGNOSIS: 1- Lumbar Degenerative Disc Diseases 2-Lumbar spondylosis with Facet arthropathy without myelopathy. 3-lumbar spinal stenosis POSTOPERATIVE DIAGNOSIS: Same as preop diagnosis. PROCEDURE 1. Lumbar epidural steroid injection under fluoroscopic guidance at the L3-4 level. (Fluoroscopy imaging was available in radiology department) 2. Lumbar epidurogram. ANESTHESIA: moderate sedation with intravenous Versed 1 mg ,and fentanyle 50 Mcg Sedation start time : 0 720 Sedation end time : 0 727 EBL: Minimal PROCEDURE INDICATION: The patient with low back pain and radiculitis symptoms unresponsive to conservative treatment. Fluoroscopy was used to optimize visualization of the needle placement and to maximize safety. PROCEDURE DESCRIPTION / TECHNIQUE: The patient was seen and identified in the preoperative area. Risks, benefits, complications including but not limited to infections ,bleeding ,allergic reaction to the medications ,nerve damage and not complete pain releife , and alternatives were discussed with the patient. The patient agreed to proceed with the procedure and signed the consent. IV was started, and vital signs were stable. Patient was taken to the OR and time out was completed. The patient was placed in the prone position on procedure table and a pillow was placed under the abdomen to reduce lumbar lordosis. The lumbosacral area was prepped and draped in the usual sterile fashion.ere closely monitored during the procedure. Conscious sedation was used during the procedure to decrease patients anxiety. Vital signs was monitered during the entire procedure. Using anterior-posterior fluoroscopy, the L3-4 interlaminar space was identified and the skin over this site was marked and then infiltrated with 1% lidocaine subcutaneously. Subsequently, a 20-gauge Tuohy epidural needle was inserted and advanced toward the epidural space using the ``Loss of resistance technique and guided by AP and lateral fluoroscopy. The correct needle position in the epidural space was verified with the injection of 2 mL of the water soluble contrast dye Isovue 200 contrast and observing an excellent epidurogram with the epidural spread of the dye, after negative aspiration for blood and CSF and in the absence of paresthesias. Again after negative aspiration, a 6 ml mixture containing 60 mg of Depo-medrol ( Preservetive Free ), and 2 ml of preservative free Normal Saline, and 2 ml of preservative free lidocaine 1% solution was injected and a washout of epidurogram was seen. Needle was withdrawn intact, skin was cleansed, and bandages were applied. COMPLICATIONS: None DISPOSITION / PLANS: The patient was placed in a supine position and transferred to the recovery area in a stable condition for observation. There was no evide nce of lower extremity motor or sensory deficit after the procedure. Patient was discharged from the recovery room after meeting discharge criteria. Home discharge instructions were given to the patient by the staff. The patient was reexamined prior to discharge. The patient will schedule a follow up in the clinic in 2-4 weeks.
[2022-02-27] MEDS ORDERED: IV FLUID CONTINUATION 1,000 ML IV ONE (07:32)
[2022-02-27 07:37] VITALS: RESP 16
[2022-02-27 07:51] VITALS: BP 164/71; PULSE 59
--- NOTE | 2022-02-27 09:20 | FL ---
Fluoroscopy History: LUM EPI INJ lumbar epi 5 sec fl time used
== END 2022-02-27 07:57 | disposition home or self-care (01) ==
LOC: ORPAIN 06:15
PROVIDERS: ATTEND Specialist
DX: M51.16 Intervertebral disc disorders with radiculopathy, lumbar region (principal); M47.26 Other spondylosis with radiculopathy, lumbar region
CPT/HCPCS: 62323; J1040; Q9966

== ENCOUNTER → 2022-03-12 | Outpatient (CLI) | payer MEDICARE ==
[2022-03-12 13:21] VITALS: BP 141/79; PULSE 65; RESP 18; TEMP 97.5
--- NOTE | 2022-03-12 14:26 | P.PAINPG ---
PQRS Measure Charge Sheet Comment: A 71 yr old female with a history of severe and chronic neck low back pain x 5 yrs secondary to cervical & lumbar DDD and spondylosis with facet arthropathy without myelopathy presents today for evaluation s/p TREVON L3-L4. Pt states she experienced % pain relief x 2 wks s/p procedure. Pain level is currently at 8 /10 in intensity, constant, localized in the mid to lower lumbar spine, sharp in character w shooting towards the BL shoulders. Pain is provoked by rotation, lifting. Pain is alleviated with Pt x 8 wks in July 2021, massage integrated w PT, hot showers, medications (Neurontin, Mobic), topicals, home exercise regimen as tolerated, repositioning and rest. Interventional pain procedures completed include TREVON L3-L4 x1 Patient is currently on Neurontin, Mobic Patient denies any side effects of the medication(s), denies excessive drowsiness or sleepiness, denies suicidal ideation and reports that the current pain medication is helping to control the pain and improve activities of daily living. Patient denies any motor or sensory deficits. Patient denies any fever or night sweats, denies any change in the bowel movements or urination. Physical Examination: -Constitutional: Cooperative. Not in acute distress . - Neurologic: Cranial nerve II to XII intact. No focal neurological deficits . - Psychatric: Alert & oriented x 3. Matching mood & appropriate affect. Judgment and insight intact. - Musculoskeletal: Cervical spine: Muscle bulk/ tone/ strength in the bilateral upper extremities normal Vertebral body tenderness to palpation over C6 Spurling test positive Distraction test positive Facet loading test positive Thoracic spine Muscle bulk / tone/ strength in the bilateral paraspinal muscles normal Vertebral body tender to palpation over Facet loading test positive Lumbar spine: Motor bulk/ tone/ strength lower extremities , thigh and legs : 5/5 Deep tendon reflexes : Normal Knee Jerk. Normal Ankle Jerk . Vertebral body tenderness to palpation over Lumbar Facet Loading Test positive Straight Leg Raise: positive at 30 degrees right side/ left side Gaenslen's Test positive Sacral spine : Severe tenderness over the Sacroiliac joint: right side / left side Range of motion: Flexion of the lumbar spine <60 degrees Range of motion: Extension of the lumbar spine <20 degrees Gaenslen's Test positive Sayda test: positive right side / left side Thigh Thrust Test Sacral Thrust Test Imaging: MRI without contrast of the cervical spine from 05/03/21 reviewed MRI right brachial plexus without contrast from 05/06/21 reviewed Assessment and plan: Chronic neck and lower back pain secondary to DDD, spondylosis with facet arthropathy without myelopathy Recommendation of TREVON C6 - C7 #1. Patient may need a series of injections, up to 3 within a six-month timeframe, for optimal pain relief. Risks, benefits of procedure discussed and pt verbalized understanding. Admits to anticoagulant use or medical history of diabetes. Protocol for discontinuation/ continuation of medications per procedure discussed. All patient questions answered I have spent less than 30 minutes on patient care today. Dr Berry was available by phone for the evaluation of this patient. The time was used to review the medical records including relevant urine studies and Prescription history (MAPs), review of the available imaging, evaluation and examination of the patient, coordination of care with the medical staff and if applicable referring physicians, as well as creation of the medical record PQRS Narrative: Smoking Status Former smoker Hx Alcohol Use (MH) No Home Medications: Ambulatory Orders Losartan [Cozaar] 50 mg PO DAILY 05/01/21 Meloxicam [Mobic] 7.5 mg PO DAILY 12/26/21 Rivaroxaban [Xarelto] 1 tab PO DAILY 12/26/21 Gabapentin 300 mg PO TID PRN 01/08/22 Controlled Substance Measures - Controlled Substance Measures Is patient prescribed a controlled substance at discharge?: No
== END ==
LOC: PNWHC3 12:34
PROVIDERS: ATTEND Specialist
DX: M47.816 Spondylosis without myelopathy or radiculopathy, lumbar region (principal); M51.36 Other intervertebral disc degeneration, lumbar region; M54.2 Cervicalgia; G89.29 Other chronic pain; Z88.2 Allergy status to sulfonamides; Z88.8 Allergy status to other drugs, medicaments and biological substances; Z87.891 Personal history of nicotine dependence
CPT/HCPCS: 99211

== ENCOUNTER → 2022-06-18 | Outpatient (CLI) | payer MEDICARE ==
--- NOTE | 2022-06-18 14:15 | P.PAINPG ---
PQRS Measure Charge Sheet Comment: A 71 yr old female with a history of severe and chronic neck pain secondary to cervical DDD and spondylosis with facet arthropathy without myelopathy presents today for evaluatiojn s/p TREVON C6-7. Pt states she experienced 20 % pain relief x 3 wks s/p procedure. Pain level is provoked at 10 /10 in intensity, constant, localized in the R >L lumbar spine, stabbing in character w/o shooting pain. Pain is provoked by over activity. Pain is alleviated with PT integrated w massage x 6 wks in Fall 2021, meds, topicals, use of a cane for ambulatory assistance, repositioning and rest. Interventional pain procedures completed include TREVON C6-7, L3-L4. Patient is currently on Tyl Patient denies any side effects of the medication(s), denies excessive drowsiness or sleepiness, denies suicidal ideation and reports that the current pain medication is helping to control the pain and improve activities of daily living. Patient denies any motor or sensory deficits. Patient denies any fever or night sweats, denies any change in the bowel movements or urination. Physical Examination: -Constitutional: Cooperative. Not in acute distress . - Neurologic: Cranial nerve II to XII intact. No focal neurological deficits. - Psychatric: Alert & oriented x 3. Matching mood & appropriate affect. Judgment and insight intact. - Musculoskeletal: Cervical spine: Muscle bulk/ tone/ strength in the bilateral upper extremities normal Vertebral body tenderness to palpation over Spurling test positive Distraction test positive Facet loading test positive TTP Thoracic spine Muscle bulk / tone/ strength in the bilateral paraspinal muscles normal Vertebral body tender to palpation over Facet loading test positive TTP Lumbar spine: Motor bulk/ tone/ strength lower extremities , thigh and legs : 5/5 Deep tendon reflexes : Normal Knee Jerk. Normal Ankle Jerk . Vertebral body tenderness to palpation over Lumbar Facet Loading Test positive Straight Leg Raise: positive at 30 degrees right side/ left side Gaenslen's Test positive Sacral spine : Severe tenderness over the Sacroiliac joint: right side / left side Range of motion: Flexion of the lumbar spine <60 degrees Range of motion: Extension of the lumbar spine <20 degrees Gaenslen's Test positive R / L Sayda test: positive right side / left side Thigh Thrust Test positive R / L Sacral Thrust Test positive R/ L Assessment and plan: Chronic neck pain secondary to cervical DDD, spondylosis with facet arthropathy without myelopathy Recommendation of medication management. Pt has had a total of 4 steroid injections (ESIs at this clinic and 2 Knee injections at an outside facility). Diclofenac gel and lidoderm 5% patches, use as directed w 1 RF. May return to clinic as needed. All questions answered. I have spent less than 30 minutes on patient care today. Dr Berry was available by phone for the evaluation of this patient. The time was used to review the medical records including relevant urine studies and Prescription history (MAPs), review of the available imaging, evaluation and examination of the patient, coordination of care with the medical staff and if applicable referring physicians, as well as creation of the medical record PQRS Narrative: Smoking Status Former smoker Hx Alcohol Use (MH) No Home Medications: Ambulatory Orders Losartan [Cozaar] 50 mg PO DAILY 05/01/21 Meloxicam [Mobic] 7.5 mg PO DAILY 12/26/21 Rivaroxaban [Xarelto] 20 mg PO DAILY 12/26/21 Diclofenac Sodium Gel [Voltaren Gel] 100 gm TOPICAL Q24H 30 Days #100 gm 06/18/22 Lidocaine 5% Patch [Lidoderm] 1 each TP QAM 30 Days #30 patch 06/18/22 Controlled Substance Measures - Controlled Substance Measures Is patient prescribed a controlled substance at discharge?: No
[2022-06-18 14:40] VITALS: BP 158/115; PULSE 68; RESP 18; TEMP 97.6
== END ==
LOC: PNWHC3 12:42
PROVIDERS: ATTEND Specialist
DX: M50.30 Other cervical disc degeneration, unspecified cervical region (principal); M47.812 Spondylosis without myelopathy or radiculopathy, cervical region; G89.29 Other chronic pain; Z87.891 Personal history of nicotine dependence; Z88.2 Allergy status to sulfonamides; Z88.8 Allergy status to other drugs, medicaments and biological substances
CPT/HCPCS: 99211

== ENCOUNTER 2022-07-02 16:03 | Inpatient (IN) | payer MEDICARE ==
[2022-07-02] MEDS ORDERED: SODIUM CHLORIDE 0.9% 500 ML 500 ML IV STA (17:10)
[2022-07-02] MEDS ORDERED: DILTIAZEM 125 MG in SODIUM CHLORIDE 0.9% 100 ML IV SCH (17:15)
--- NOTE | 2022-07-02 17:25 | ED ---
General Adult HPI - General Chief complaint: Arrhythmia/Palpitations Stated complaint: AFIB/bodyaches Time Seen by Provider: 07/02/22 16:33 Source: patient, RN notes reviewed, old records reviewed Mode of arrival: wheelchair Limitations: no limitations - History of Present Illness Initial comments: This a 71-year-old female presents emergency department stating that since Thursday she's had a cough and coughing up quite a bit of green sputum. Patient s tates she also has had some pain in her back just lateral and inferior to the scapula which she states is similar pain that she had 20 years ago she had a heart attack. Patient states she has had a little bit of chest pressure as well. Patient denies a fever chills. Patient states she took her pulse today on an apple watching noticed was 135 beats a minute and she does have history of A. fib but hasn't been taking her medications because she can't afford them. Patient denies any fever chills. Patient denies any nausea vomiting. - Related Data Home Medications Medication Instructions Recorded Confirmed Losartan [Cozaar] 50 mg PO DAILY 05/01/21 07/02/22 Meloxicam [Mobic] 15 mg PO DAILY 07/02/22 07/02/22 Rosuvastatin [Crestor] 20 mg PO HS 07/02/22 07/02/22 Allergies Allergy/AdvReac Type Severity Reaction Status Date / Time cyclobenzaprine Allergy Unknown Verified 07/02/22 19:24 [From Flexeril] Sulfa (Sulfonamide Allergy states she Verified 07/02/22 19:24 Antibiotics) feels terrible, can't move Review of Systems ROS Statement: Those systems with pertinent positive or pertinent negative responses have been documented in the HPI. ROS Other: All systems not noted in ROS Statement are negative. Past Medical History Past Medical History: Atrial Fibrillation, Hypertension, Myocardial Infarction ([place]), Musculoskeletal Disorder, Rheumatoid Arthritis ([place]) Additional Past Medical History / Comment(s): Back pain, hx ulcers. rt hip needs replacement. 05/14 [facility] for back pain and pain in side dx for ulcers. went into [facility] 2 days after discharge from [place] for rt arm edema and stayed for afib. Placed on heart monitor and in afib 10% of the time. Put on xarelto. arthritis generalized. left back lipoma for 4 yrs, now hurting. Last Myocardial Infarction Date:: 2001 History of Any Multi-Drug Resistant Organisms: None Reported Past Surgical History: Heart Catheterization Additional Past Surgical History / Comment(s): Abd. tumor/ ?benign/ no further TX; pain procedures, colonoscopy Past Anesthesia/Blood Transfusion Reactions: No Reported Reaction Past Psychological History: No Psychological Hx Reported Smoking Status: Former smoker Past Alcohol Use History: None Reported Past Drug Use History: None Reported - Past Family History Brother(s) Family Medical History: Cancer Additional Family Medical History / Comment(s): Colon Ca Father Family Medical History: Myocardial Infarction ([place]) Mother Family Medical History: Cancer Additional Family Medical History / Comment(s): breast Sister(s) Family Medical History: Cancer Additional Family Medical History / Comment(s): ovarian General Exam - General Exam Comments Initial Comments: GENERAL: Patient is well-developed and well-nourished. Patient is nontoxic and well- hydrated and is in mild distress. ENT: Neck is soft and supple. No significant lymphadenopathy is noted. Oropharynx is clear. Moist mucous membranes. Neck has full range of motion without elic iting any pain. EYES: The sclera were anicteric and conjunctiva were pink and moist. Extraocular m ovements were intact and pupils were equal round and reactive to light. Eyelids were unremarkable. PULMONARY: Unlabored respirations. Good breath sounds bilaterally. No audible rales rhonchi or wheezing was noted. CARDIOVASCULAR: Patient is tachycardic at 130 beats a minute and it is irregularly irregular ABDOMEN: Soft and nontender with normal bowel sounds. SKIN: Skin is clear with no lesions or rashes and otherwise unremarkable. NEUROLOGIC: Patient is alert and oriented x3. Cranial nerves II through XII are grossly intact. Motor and sensory are also intact. Normal speech, volume and content. Symmetrical smile. MUSCULOSKELETAL: Normal extremities with adequate strength and full range of motion. No lower extremity swelling or edema. No calf tenderness. LYMPHATICS: No significant lymphadenopathy is noted PSYCHIATRIC: Normal psychiatric evaluation. Limitations: no limitations Course Vital Signs 07/02/22 07/02/22 07/02/22 16:10 17:11 19:32 Temperature 98.7 F Pulse Rate 92 117 H 106 H Respiratory 18 22 18 Rate Blood Pressure 120/69 120/81 137/77 O2 Sat by Pulse 96 95 96 Oximetry Medical Decision Making - Medical Decision Making EKG was interpreted by myself shows atrial fibrillation with rapid ventricular response at 125 bpm QRS is 110 QT interval 316 QTC is 390. Patient's EKG shows no ST segment elevation or depression. Was pt. sent in by a medical professional or institution ([facility] Park, PEDIATRIC ONCOLOGIST, urgent care, hospital, or fdc...) When possible be specific @ -No Did you speak to anyone other than the patient for history (EMS, parent, family, police, friend...)? What history was obtained from this source @ -No Did you review nursing and triage notes (agree or disagree)? Why? @ -I reviewed and agree with nursing and triage notes Were old charts reviewed (outside hosp., previous admission, EMS record, old EKG, old radiological studies, urgent care reports/EKG's, fdc records)? Report findings @ -I reviewed prior charts and prior lab work on this patient Differential Diagnosis (chest pain, altered mental status, abdominal pain women, abdominal pain men, vaginal bleeding, weakness, fever, dyspnea, syncope, hea dache, dizziness, GI bleed, back pain, seizure, CVA, palpatations, mental health, musculoskeletal)? @ -Differential Dyspnea: Coronary syndrome, arrhythmia, tamponade, asthma, COPD, pulmonary embolism, pneumonia, pneumothorax, pulmonary effusion, anaphylaxis, diabetic ketoacidosis, flailed chest, pulmonary contusion, diaphragmatic rupture, anemia, neuromuscular, this is not meant to be an all-inclusive list. EKG interpreted by me (3pts min.). @ -As above X-rays interpreted by me (1pt min.). @ -Shows interpreted by myself as in no acute abnormality CT interpreted by me (1pt min.). @ -None done U/S interpreted by me (1pt. min.). @ -None done What testing was considered but not performed or refused? (CT, X-rays, U/S, labs)? Why? @ -None What meds were considered but not given or refused? Why? @ -None Did you discuss the management of the patient with other professionals (professionals i.e. JAYLAN Park, PEDIATRIC ONCOLOGIST, lab, RT, psych nurse, social security assessor, certified tumor registrar, teacher, finance officer, bilingual case manager)? Give summary @ -No Was smoking cessation discussed for >3mins.? @ -No Was critical care preformed (if so, how long)? @ -35 minutes Were there social determinants of health that impacted care today? How? (Homelessness, low income, unemployed, alcoholism, drug addiction, transportation, low edu. Level, literacy, decrease access to med. care, skilled nursing, rehab)? @ -No Was there de-escalation of care discussed even if they declined (Discuss DNR or withdrawal of care, Hospice)? DNR status @ -No What co-morbidities impacted this encounter? (DM, HTN, Smoking, COPD, CAD, Cancer, CVA, ARF, Chemo, Hep., AIDS, mental health diagnosis, sleep apnea, morbi d obesity)? @ -None Was patient admitted / discharged? Hospital course, mention meds given and route, prescriptions, significant lab abnormalities, going to OR and other pertinent info. @ -Patient continued emergency department in A. fib with rapid ventricular response. I gave the patient heparin with heparin bolus and she was on no blood thinners. Patient also was started on a Cardizem drip to slow her heart rate down. Chest x-ray showed no acute abnormality. Rest of lab work was normal except for the fact the patient's troponin was mildly elevated. I spoke with Dr. Walter agreed to admit the patient admitted the patient I also spoke with cardiology. Undiagnosed new problem with uncertain prognosis? @ -No Drug Therapy requiring intensive monitoring for toxicity (Heparin, Nitro, Insulin, Cardizem)? @ -No Were any procedures done? @ -No Diagnosis/symptom? @ -NSTEMI Acute, or Chronic, or Acute on Chronic? @ -Acute Uncomplicated (without systemic symptoms) or Complicated (systemic symptoms)? @ -Complicated Side effects of treatment? @ -No Exacerbation, Progression, or Severe Exacerbation? @ -No Poses a threat to life or bodily function? How? (Chest pain, [place], [place], pneumonia, PE, COPD, DKA, ARF, appy, cholecystitis, CVA, Diverticulitis, Homicidal, Suicidal, threat to staff... and all critical care pts) @ -This could lead to an [place] which lead to poor perfusion end organ dysfunction Diagnosis/symptom? @ -A. fib with rapid ventricular response Acute, or Chronic, or Acute on Chronic? @ -Acute Uncomplicated (without systemic symptoms) or Complicated (systemic symptoms)? @ -Complicated Side effects of treatment? @ -none Exacerbation, Progression, or Severe Exacerbation] @ -no Poses a threat to life or bodily function? @ -no - Lab Data Result diagrams: 07/02/22 18:33 07/02/22 18:33 Lab Results 07/02/22 07/02/22 07/02/22 Range/Units 17:22 17:22 18:33 WBC (3.8-10.6) k/uL RBC (3.80-5.40) m/uL Hgb (11.4-16.0) gm/dL Hct (34.0-46.0) % MCV (80.0-100.0) fL MCH (25.0-35.0) pg MCHC (31.0-37.0) g/dL RDW (11.5-15.5) % Plt Count (150-450) k/uL MPV Neutrophils % % Lymphocytes % % Monocytes % % Eosinophils % % Basophils % % Neutrophils # (1.3-7.7) k/uL Lymphocytes # (1.0-4.8) k/uL Monocytes # (0-1.0) k/uL Eosinophils # (0-0.7) k/uL Basophils # (0-0.2) k/uL PT (9.0-12.0) sec INR (<1.2) APTT (22.0-30.0) sec Sodium 136 L (137-145) mmol/L Potassium 3.9 (3.5-5.1) mmol/L Chloride 103 (98-107) mmol/L Carbon Dioxide 24 (22-30) mmol/L Anion Gap 9 mmol/L BUN 12 (7-17) mg/dL Creatinine 0.65 (0.52-1.04) mg/dL Est GFR (CKD-EPI)AfAm >90 (>60 ml/min/1.73 sqM) Est GFR (CKD-EPI)NonAf 89 (>60 ml/min/1.73 sqM) Glucose 100 H (74-99) mg/dL Calcium 8.5 (8.4-10.2) mg/dL Magnesium 1.9 (1.6-2.3) mg/dL Total Bilirubin 1.0 (0.2-1.3) mg/dL AST 32 (14-36) U/L ALT 27 (4-34) U/L Alkaline Phosphatase 72 (38-126) U/L Troponin I (0.000-0.034) ng/mL Total Protein 6.2 L (6.3-8.2) g/dL Albumin 3.5 (3.5-5.0) g/dL TSH 3.570 (0.465-4.680) mIU/L Influenza Type A (PCR) Not Detected (Not Detectd) Influenza Type B (PCR) Not Detected (Not Detectd) RSV (PCR) Not Detected (Not Detectd) SARS-CoV-2 (PCR) Not Detected (Not Detectd) 07/02/22 07/02/22 07/02/22 Range/Units 18:33 18:33 18:33 WBC 4.8 (3.8-10.6) k/uL RBC 4.24 (3.80-5.40) m/uL Hgb 13.0 (11.4-16.0) gm/dL Hct 38.2 (34.0-46.0) % MCV 90.2 (80.0-100.0) fL MCH 30.6 (25.0-35.0) pg MCHC 33.9 (31.0-37.0) g/dL RDW 13.9 (11.5-15.5) % Plt Count 128 L (150-450) k/uL MPV 9.2 Neutrophils % 78 % Lymphocytes % 14 % Monocytes % 3 % Eosinophils % 2 % Basophils % 0 % Neutrophils # 3.7 (1.3-7.7) k/uL Lymphocytes # 0.7 L (1.0-4.8) k/uL Monocytes # 0.1 (0-1.0) k/uL Eosinophils # 0.1 (0-0.7) k/uL Basophils # 0.0 (0-0.2) k/uL PT 10.9 (9.0-12.0) sec INR 1.0 (<1.2) APTT 25.6 (22.0-30.0) sec Sodium (137-145) mmol/L Potassium (3.5-5.1) mmol/L Chloride (98-107) mmol/L Carbon Dioxide (22-30) mmol/L Anion Gap mmol/L BUN (7-17) mg/dL Creatinine (0.52-1.04) mg/dL Est GFR (CKD-EPI)AfAm (>60 ml/min/1.73 sqM) Est GFR (CKD-EPI)NonAf (>60 ml/min/1.73 sqM) Glucose (74-99) mg/dL Calcium (8.4-10.2) mg/dL Magnesium (1.6-2.3) mg/dL Total Bilirubin (0.2-1.3) mg/dL AST (14-36) U/L ALT (4-34) U/L Alkaline Phosphatase (38-126) U/L Troponin I 0.207 H* (0.000-0.034) ng/mL Total Protein (6.3-8.2) g/dL Albumin (3.5-5.0) g/dL TSH (0.465-4.680) mIU/L Influenza Type A (PCR) (Not Detectd) Influenza Type B (PCR) (Not Detectd) RSV (PCR) (Not Detectd) SARS-CoV-2 (PCR) (Not Detectd) Disposition Clinical Impression: Atrial fibrillation with rapid ventricular response, Non-STEMI (non-ST elevated myocardial infarction) Disposition: ADMITTED IP TO THIS HOSP Referrals: Codie Block DO [Primary Care Provider] - 1-2 days Time of Disposition: 20:40
--- NOTE | 2022-07-02 17:32 | XR ---
EXAMINATION TYPE: XR chest 2V DATE OF EXAM: 07/02/2022 COMPARISON: 05/01/2021 HISTORY: Shortness of breath TECHNIQUE: Frontal and lateral views of the chest are obtained. FINDINGS: Scattered senescent parenchymal changes noted. Hyperinflation compatible with COPD. No evidence for infiltrate. No evidence for atelectasis. Heart size is stable. Mediastinal structures are stable and grossly unremarkable. No evidence for hilar prominence. Degenerative changes dorsal spine. IMPRESSION: 1. No evidence for acute pulmonary disease.
[2022-07-02] MEDS ORDERED: HEPARIN SODIUM 1,000 UN/ML (10ML VL) IV ONE (18:03)
[2022-07-02 19:13] LABS: Basophils % (A) 0 %; Eosinophils # (A) 0.1 k/uL (0-0.7); Eosinophils % (A) 2 %; HCT 38.2 % (34.0-46.0); Lymphocytes # (A) 0.7 k/uL (1.0-4.8); Lymphocytes % (A) 14 %; MCH 30.6 pg (25.0-35.0); MCHC 33.9 g/dL (31.0-37.0); MCV 90.2 fL (80.0-100.0); Mean Platelet Volume 9.2; Monocytes # (A) 0.1 k/uL (0-1.0); Monocytes % (A) 3 %; Neutrophils # (A) 3.7 k/uL (1.3-7.7); Neutrophils % (A) 78 %; Platelet Count 128 k/uL (150-450); RBC 4.24 m/uL (3.80-5.40); RDW 13.9 % (11.5-15.5); WBC 4.8 k/uL (3.8-10.6)
[2022-07-02 19:23] LABS: Partial Thromboplastin Time 25.6 sec (22.0-30.0); Prothrombin Time 10.9 sec (9.0-12.0)
[2022-07-02 19:35] LABS: ALT 27 U/L (4-34); AST 32 U/L (14-36); African American GFR (CKD) >90 (>60 ml/min/1.73 sqM); Albumin 3.5 g/dL (3.5-5.0); Alkaline Phosphatase 72 U/L (38-126); Anion Gap 9 mmol/L; Blood Urea Nitrogen 12 mg/dL (7-17); Calcium 8.5 mg/dL (8.4-10.2); Carbon Dioxide 24 mmol/L (22-30); Chloride 103 mmol/L (98-107); Glucose 100 mg/dL (74-99); Magnesium 1.9 mg/dL (1.6-2.3); Non-African American GFR(CKD) 89 (>60 ml/min/1.73 sqM); Potassium 3.9 mmol/L (3.5-5.1); Sodium 136 mmol/L (137-145); Total Protein 6.2 g/dL (6.3-8.2)
[2022-07-02] MEDS: HEPARIN SOD,PORK IN 0.45% NACL 25,000 UNIT in 0.45% NACL 1 250ML.BAG IV SCH (20:22)
[2022-07-02] MEDS ORDERED: HYDROmorphone 0.5 MG/0.5 ML SYRINGE IVP STA (20:32)
[2022-07-02] MEDS ORDERED: ASPIRIN 81 MG PO STA (20:44)
[2022-07-02] MEDS ORDERED: NITROGLYCERIN SL TABS 0.4 MG TAB SUBLINGUAL PRN (20:44)
--- NOTE | 2022-07-02 22:04 | CT ---
EXAMINATION TYPE: CT angio thor/abd pel aorta DATE OF EXAM: 07/02/2022 COMPARISON: None HISTORY: back pain with SOB CT DLP: 2555.6 mGycm Automated exposure control for dose reduction was used. CONTRAST: Performed with IV Contrast, patient injected with 100 mL of Isovue 300. FINDINGS: Lungs are clear with no pleural effusion or pneumothorax. No focal pneumonia. Small bleb in the right upper lobe. Atherosclerotic change of the aorta and coronary arteries. Heart size mildly prominent. No pathologi c adenopathy. Aorta of normal caliber. There is a small hiatal hernia. Hypertrophic and degenerative changes of the vertebral column are not ed. A grade 1 anterolisthesis of L4 and L5 with multilevel facet arthropathy. Bilateral hip arthropat hy. Liver and spleen are homogeneous. Pancreas has a normal appearance. There is a single hepatic granulo ma on image 156. Aorta is of normal caliber. Mesenteric vasculature enhances normally. Renal arteries appear to demonstrate the patency. No evidence of aneurysm. Atherosclerotic change of the aorta and iliac vasculature. Retained fecal debris throughout the colon correlate for constipation. There are changes of diverticu losis with no CT evidence of diverticulitis. No renal calcifications or hydronephrosis. There is cortical loss and lobulation bilaterally. Suspect ed bilateral parapelvic renal cysts. IMPRESSION: 1. No evidence of aortic aneurysm. 2. No acute infiltrates, pleural effusion or pneumothorax. 3. Gallbladder distention but no evidence of gallstone. Correlate with HIDA scan as clinically warran mohamud. 4. Favor bilateral parapelvic renal cysts over mild hydronephrosis. 5. Diverticulosis with no CT evidence of diverticulitis. Correlate for constipation.
[2022-07-02] MEDS ORDERED: MELATONIN 3 MG TABLET PO PRN (22:09)
[2022-07-02] MEDS ORDERED: NALOXONE 0.4 MG/ML 1 ML VIAL IV PRN (22:09)
[2022-07-02] MEDS ORDERED: LORazepam 0.5 MG TAB PO PRN (22:09)
[2022-07-02] MEDS ORDERED: ONDANSETRON 4 MG/2 ML VIAL IVP PRN (22:09)
[2022-07-02] MEDS ORDERED: CALCIUM CARBONATE 500 MG CHEWABLE PO PRN (22:09)
[2022-07-03] MEDS: NITROGLYCERIN OINT 1 INCH/GM PACKET TOPICAL SCH ×4 (00:35→16:43)
[2022-07-03] MEDS: ATORVASTATIN 40 MG TAB PO SCH ×2 (00:35→21:06)
[2022-07-03 07:57] LABS: Basophils % (A) 0 %; Eosinophils # (A) 0.2 k/uL (0-0.7); Eosinophils % (A) 3 %; HCT 35.1 % (34.0-46.0); HGB 11.6 gm/dL (11.4-16.0); Lymphocytes # (A) 0.6 k/uL (1.0-4.8); Lymphocytes % (A) 12 %; MCHC 33.2 g/dL (31.0-37.0); MCV 90.3 fL (80.0-100.0); Monocytes # (A) 0.2 k/uL (0-1.0); Monocytes % (A) 4 %; Neutrophils # (A) 3.7 k/uL (1.3-7.7); Neutrophils % (A) 79 %; Platelet Count 139 k/uL (150-450); RBC 3.88 m/uL (3.80-5.40); RDW 13.7 % (11.5-15.5); WBC 4.7 k/uL (3.8-10.6)
[2022-07-03 08:21] LABS: African American GFR (CKD) >90 (>60 ml/min/1.73 sqM); Anion Gap 5 mmol/L; Blood Urea Nitrogen 14 mg/dL (7-17); Calcium 8.3 mg/dL (8.4-10.2); Carbon Dioxide 25 mmol/L (22-30); Chloride 103 mmol/L (98-107); Glucose 108 mg/dL (74-99); Non-African American GFR(CKD) >90 (>60 ml/min/1.73 sqM); Potassium 3.8 mmol/L (3.5-5.1); Sodium 133 mmol/L (137-145)
[2022-07-03] MEDS ORDERED: HEPARIN SODIUM 1,000 UN/ML (10ML VL) IV PRN (08:54)
[2022-07-03] MEDS ORDERED: ASPIRIN 325 MG TAB PO SCH (09:00)
[2022-07-03] MEDS ORDERED: LACTULOSE 20 GM/30 ML CUP PO PRN (09:00)
[2022-07-03] MEDS: LOSARTAN 50 MG TAB PO SCH (09:01)
[2022-07-03 09:14] LABS: Chol/HDL Ratio 4.64 Ratio; LDL Cholesterol,Calculated 104.1 mg/dL (0.0-131.0)
[2022-07-03] MEDS ORDERED: ATORVASTATIN 80 MG TAB PO STA (10:01)
[2022-07-03] MEDS ORDERED: ALPRAZolam 0.5 MG TAB PO PRN (10:01)
[2022-07-03] MEDS ORDERED: ASPIRIN 325 MG TAB PO STA (10:01)
[2022-07-03] MEDS ORDERED: NITROGLYCERIN SL TABS 0.4 MG TAB SUBLINGUAL PRN (10:01)
[2022-07-03] MEDS ORDERED: ALPRAZolam 0.25 MG TAB PO PRN (10:01)
[2022-07-03] MEDS: METOPROLOL TARTRATE 25 MG TAB PO SCH ×2 (12:18→21:06)
[2022-07-03] MEDS: SODIUM CHLORIDE 0.9% 1,000 ML IV SCH (12:19)
--- NOTE | 2022-07-03 13:56 | CONS ---
CONSULTATION HISTORY OF PRESENT ILLNESS: Minerva Howell is a 71-year-old lady, who has seen Dr. Escamilla in the office in May of 2021. She also follows up with a graduate teaching associate in [facility]. She has a history of paroxysmal atrial fibrillation and CAD, underwent angioplasty 20 years ago. She has history of some inflammatory arthritis, paroxysmal atrial fibrillation, and statin intolerance. She was advised to be on Eliquis and Xarelto, but she has not been taking either of those medicines. Her granddaughter came to visit her, and she was not feeling well for about a day or so, feeling very uncomfortable, weak, and nondescript uncomfortable sensation in the chest. Her granddaughter put her phone and noted she was in atrial fibrillation and brought her to the emergency room. After arrival in the ER, she was found to be in atrial fibrillation with a rapid ventricular rate, and since then, she has converted to sinus rhythm. She had a CT angiogram performed because she complained of back discomfort. There is no evidence of any aortic dissection, and I requested the radiologist to review for any central pulmonary embolism, and he called me back and Dr. Redding said the study was done for aorta, but there is no central pulmonary embolism. EKG revealed atrial fibrillation with rapid ventricular rate. Repeat EKG revealed precordial nonspecific ST and T-wave changes. The patient's troponin is elevated to the level of 0.2, 0.2, and 0.187. Renal function is normal. Clinical picture suggests that of [id number] [place] and paroxysmal atrial fibrillation. She is currently on a heparin drip. I am going to hydrate her with normal saline 75 mL/hour, and I am advising cardiac catheterization tomorrow. I will request Dr. Escamilla to perform the procedure. Rationale, risks, benefits, and options explained to the patient. She understands all details and wishes to proceed with the procedure. PAST MEDICAL HISTORY: 1. History of atrial fibrillation, paroxysmal in nature. 2. CAD with prior angioplasty 20 years ago, details unavailable. 3. Hypertension. 4. Inflammatory arthritis. 5. History of gastric ulcers. 6. Former smoker. MEDICATIONS AT HOME: Include: 1. Losartan 50 mg daily. 2. Meloxicam. 3. Crestor 20 mg daily. PHYSICAL EXAMINATION: VITAL SIGNS: Blood pressure is 118/70, pulse rate 78 per minute and regular. HEENT: Unremarkable. Fundus was not examined by me. NECK: Supple. No JVD. I do not hear a carotid bruit. There is no thyromegaly. HEART: Reveals S1 and S2 heard normally in all areas. No rub, murmur, or gallop. LUNGS: Clear. ABDOMEN: Soft and nontender. EXTREMITIES: Lower extremities reveal normal pulses. No edema. CENTRAL NERVOUS SYSTEM: Grossly within normal limits. LABORATORY DATA: Suggests a [id number]-DF-apfrzhxud [place]. IMAGING STUDIES: EKG revealed nonspecific precordial ST-T changes. Initial EKG revealed atrial fibrillation with rapid ventricular rate, and she spontaneously converted to sinus rhythm. IMPRESSION: 1. Atrial fibrillation, paroxysmal, back in sinus rhythm. 2. Nondescript chest tightness with abnormal troponin suggestive of [id number] myocardial infarction. 3. History of coronary artery disease with prior percutaneous transluminal coronary angioplasty, details unclear. 4. History of inflammatory arthritis. 5. Hypertension. 6. Hyperlipidemia. RECOMMENDATIONS: I am recommending heparinization, anticoagulation, and hydration. Discussed my thoughts in detail with the patient, and she understands risks, benefits, options, rationale, and wishes to proceed with cardiac catheterization, which will be performed by Dr. Escamilla tomorrow. MMODL / IJN: [id number] /
[2022-07-03] MEDS: HEPARIN SOD,PORK IN 0.45% NACL 25,000 UNIT in 0.45% NACL 1 250ML.BAG IV SCH (15:05)
--- NOTE | 2022-07-03 16:05 | CA ---
Transthoracic Echo Report Name: Minerva Howell Age: 71 Gender: F : 1950 Exam Date: 07/03/2022 11:42 Exam Location: [facility] Ht (in): 66 Wt (lb): 260 Ordering Physician: Annabel Flowers MD ([id number]) Attending/Referring Phys: Traffic Investigator Diamante Hoang RDCS Procedure CPT: Indications: LV function and thrombus Cardiac Hx: Technical Quality: Good Contrast 1: Total Dose (mL): Contrast 2: Total Dose (mL): MEASUREMENTS (Male / Female) Normal Values 2D ECHO LV Diastolic Diameter PLAX 5.3 cm 4.2 - 5.9 / 3.9 - 5.3 cm LV Systolic Diameter PLAX 4.3 cm IVS Diastolic Thickness 1.4 cm 0.6 - 1.0 / 0.6 - 0.9 cm LVPW Diastolic Thickness 1.4 cm 0.6 - 1.0 / 0.6 - 0.9 cm LV Relative Wall Thickness 0.5 RV Internal Dim ED PLAX 3.3 cm LA Systolic Diameter LX 4.0 cm 3.0 - 4.0 / 2.7 - 3.8 cm LV Diastolic Volume MOD BP 100.9 cm??? 67 - 155 / 56 - 104 cm??? LV Systolic Volume MOD BP 47.4 cm??? 22 - 58 / 19 - 49 cm??? LV Ejection Fraction MOD BP 53.0 % >= 55 % LV Diastolic Volume MOD 4C 113.7 cm??? LV Systolic Volume MOD 4C 38.0 cm??? LV Ejection Fraction MOD 4C 66.6 % LV Diastolic Length 4C 7.6 cm LV Systolic Length 4C 6.1 cm LV Diastolic Volume MOD 2C 86.5 cm??? LV Systolic Volume MOD 2C 55.1 cm??? LV Ejection Fraction MOD 2C 36.3 % LV Diastolic Length 2C 7.2 cm LV Systolic Length 2C 6.8 cm LA Volume 68.6 cm??? 18 - 58 / 22 - 52 cm??? M-MODE Aortic Root Diameter MM 3.4 cm MV E Point Septal Separation 1.2 cm AV Cusp Separation MM 2.2 cm DOPPLER AV Peak Velocity 140.5 cm/s AV Peak Gradient 7.9 mmHg MV Area PHT 3.8 cm??? Mitral E Point Velocity 80.4 cm/s Mitral A Point Velocity 59.9 cm/s Mitral E to A Ratio 1.3 MV Deceleration Time 199.9 ms MV E' Velocity 7.4 cm/s Mitral E to MV E' Ratio 10.8 FINDINGS Left Ventricle Left ventricular ejection fraction is estimated at 45-50 %. Left ventricular cavity uppear normal size. Moderate concentric left ventricular hypertrophy. Normal left ventricular wall motion. Mildly reduced global left ventricular systolic function. Right Ventricle Mild right ventricular dilatation. No TR, unable to estimate the right ventricular systolic pressure. Right Atrium Normal right atrial size. Left Atrium Mildly increased left atrial diameter. Moderately increased left atrial volume. Mildly increased left atrial area. Mitral Valve Structurally normal mitral valve. No evidence for mitral valve prolapse. No mitral stenosis. Trace to mild mitral regurgitation. Aortic Valve Trileaflet aortic valve. No aortic valve stenosis or regurgitation. Tricuspid Valve Structurally normal tricuspid valve. Pulmonic Valve Structurally normal pulmonic valve. No pulmonic regurgitation. Pericardium Normal pericardium. No pericardial effusion. Aorta Normal size aortic root and proximal ascending aorta. CONCLUSIONS Reduced LV systolic function ejection fraction 45% Previewed by: Dr. Tay Owens MD (Electronically Signed) Final Date: 03 July 2022 16:04
[2022-07-03] MEDS: ACETAMINOPHEN TAB 325 MG TAB PO PRN (18:28)
--- NOTE | 2022-07-03 22:05 | P.HPIM ---
History of Present Illness H&P Date: 07/03/22 Chief Complaint: Short of breath This is a 71-year-old patient who follows with Dr. Codie woods. Chronic stable medical conditions include CAD with her OH 20 years ago with angioplasty 2, osteoarthritis of the joints, peptic ulcer disease with ulcer in the stomach and the duodenal bulb , atrial fibrillation l. In the room his present her daughter. On the weekend when daughter was speaking with the patient on the phone she noted that the patient was short of breath and wanted to go to bed. 2 feeding tired. A patient with a similar episode and when they checked in the ER she was in atrial fibrillation with a rate anywhere from 70-120. Patient is put on IV heparin, IV Cardizem. Then she went into sinus rhythm. Patient also arthritic pain in joints flared up. No fever no chills. Review of systems: GEN.: Tired EYES: None HEENT: None NECK: None RESPIRATORY: As above CARDIOVASCULAR: As above GASTROINTESTINAL: [Heartburn sometimes GENITOURINARY: None MUSCULOSKELETAL: Joint pains LYMPHATICS: None HEMATOLOGICAL: None PSYCHIATRY: None NEUROLOGICAL: None Past medical history to include: [place] 20 years ago with angioplasty 2, osteoarthritis, stomach and duodenal ulcer . Atrial fibrillation Social history: Granddaughter Bill lives with her. Smoked a pack-a-day for 36 years stopped 20 years ago. Alcohol rarely. Family history: Colon cancer Physical examination: VITAL SIGNS: 98.3, 80, 14, 131/62, 95% room air GENERAL: BMI 42, declining in bed EYES: Pupils equal. Conjunctiva normal. HEENT: External appearance of nose and ears normal, oral cavity grossly normal. NECK: JVD not raised; masses not palpable. HEART: Heart sounds are regular no edema. LUNGS: Respiratory rate normal; decreased breath sounds. ABDOMEN: Soft, nontender, liver spleen not palpable, no masses palpable. PSYCH: Alert and oriented x3; mood and affect normal. MUSCULOSKELETAL:No Clubbing/cyanosis;muscles-grossly intact . OA NEUROLOGICAL: Cranial nerves grossly intact; no facial asymmetry, power and sensation grossly intact. LYMPHATICS: No lymph nodes palpable in the axilla and neck INVESTIGATIONS, reviewed in the clinical context: July 03: WBC 4.7 hemoglobin 11.6 platelets 1:30 [birth year]1932 potassium 3.8 creatinine 0.6 Troponin I 0.20, 0.20, 0.18 TSH 3.5 EKG tracing personally reviewed by me-normal sinus rhythm. 77. Mild T-wave changes. Chest x-ray film [personally reviewed by me]: No specific finding Cutback on all take CT: No aneurysm. No infiltrates. Some gallbladder distention. Diverticulosis. Assessment and plan: -Paroxysmal atrial fibrillation with a rapid vent rate., back into sinus rhythm. Initially put on IV Cardizem and IV heparin. Cardiology consulted. -Non-ST elevation myocardial infarction. IV heparin. Beta rafael. Aspirin. Per cardiology cardiac catheterization -IV heparin monitoring Follow PTT -Gastric ulcer and duodenal bulb ulcer Continue PPI. -Coronary artery disease with OH 20 years ago with angioplasty 2 -Hypertensive heart disease Lopressor, losartan -Mild to moderate mitral and tricuspid regurgitation Follow clinically -Essential hypertension Lopressor, losartan -Morbid obesity BMI 42 Weight loss measures Past Medical History Past Medical History: Atrial Fibrillation, Hypertension, Myocardial Infarction ([place]), Musculoskeletal Disorder, Rheumatoid Arthritis ([place]) Additional Past Medical History / Comment(s): Back pain, hx ulcers. rt hip needs replacement. 05/[address] [facility] for back pain and pain in side dx for ulcers. went into [facility] 2 days after discharge from [place] for rt arm edema and stayed for afib. Placed on heart monitor and in afib 10% of the time. Put on xarelto. arthritis generalized. left back lipoma for 4 yrs, now hurting. Last Myocardial Infarction Date:: 2001 History of Any Multi-Drug Resistant Organisms: None Reported Past Surgical History: Heart Catheterization Additional Past Surgical History / Comment(s): Abd. tumor/ ?benign/ no further TX; pain procedures, colonoscopy Past Anesthesia/Blood Transfusion Reactions: No Reported Reaction Past Psychological History: No Psychological Hx Reported Smoking Status: Former smoker Past Alcohol Use History: None Reported Additional Past Alcohol Use History / Comment(s): smoked 1ppd for 40 years; quit 20 yrs ago Past Drug Use History: None Reported - Past Family History Brother(s) Family Medical History: Cancer Additional Family Medical History / Comment(s): Colon Ca Father Family Medical History: Myocardial Infarction ([place]) Mother Family Medical History: Cancer Additional Family Medical History / Comment(s): breast Sister(s) Family Medical History: Cancer Additional Family Medical History / Comment(s): ovarian Medications and Allergies Home Medications Medication Instructions Recorded Confirmed Type Losartan [Cozaar] 50 mg PO DAILY 05/01/21 07/02/22 History Meloxicam [Mobic] 15 mg PO DAILY 07/02/22 07/02/22 History Rosuvastatin [Crestor] 20 mg PO HS 07/02/22 07/02/22 History Allergies Allergy/AdvReac Type Severity Reaction Status Date / Time cyclobenzaprine Allergy Unknown Verified 07/02/22 19:24 [From Flexeril] Sulfa (Sulfonamide Allergy states she Verified 07/02/22 19:24 Antibiotics) feels terrible, can't move Physical Exam Vitals: Vital Signs Temp Pulse Pulse Resp BP BP Pulse Ox 07/03/22 08:59 78 16 119/67 95 07/03/22 04:00 98.3 F 80 14 131/62 95 07/03/22 00:07 97.9 F 78 14 131/69 94 L 07/02/22 23:41 82 18 97/52 93 L 07/02/22 19:32 106 H 18 137/77 96 07/02/22 17:11 117 H 22 120/81 95 07/02/22 16:10 98.7 F 92 18 120/69 96 Intake and Output 07/02/22 07/03/22 07/03/22 22:59 06:59 14:59 Intake Total 49.172 104.927 Balance 49.172 104.927 Intake: Intake, IV Titration 49.172 104.927 Amount Heparin Sod,Pork in 0.45% 49.172 104.927 NaCl 25,000 unit In 0.45 % NaCl 1 250ml.bag @ 8.48 UNITS/KG/HR 10.001 mls/ hr IV .Q24H [facility] Rx#: [id number] Other: Voiding Method Toilet # Voids 2 Weight 117.934 kg 117.934 kg Results CBC & Chem 7: 07/03/22 07:42 07/03/22 07:42 Labs: Abnormal Lab Results - Last 24 Hours (Table) 07/02/22 07/02/22 07/02/22 Range/Units 18:33 18:33 18:33 Plt Count 128 L (150-450) k/uL Lymphocytes # 0.7 L (1.0-4.8) k/uL APTT (22.0-30.0) sec D-Dimer (<0.60) mg/L FEU Sodium 136 L (137-145) mmol/L Glucose 100 H (74-99) mg/dL Calcium (8.4-10.2) mg/dL Troponin I 0.207 H* (0.000-0.034) ng/mL Total Protein 6.2 L (6.3-8.2) g/dL HDL Cholesterol (40.00-60.00) mg/dL 07/02/22 07/02/22 07/02/22 Range/Units 18:33 18:33 21:34 Plt Count (150-450) k/uL Lymphocytes # (1.0-4.8) k/uL APTT (22.0-30.0) sec D-Dimer 2.90 H (<0.60) mg/L FEU Sodium (137-145) mmol/L Glucose (74-99) mg/dL Calcium (8.4-10.2) mg/dL Troponin I 0.204 H* (0.000-0.034) ng/mL Total Protein (6.3-8.2) g/dL HDL Cholesterol 34.70 L (40.00-60.00) mg/dL 07/03/22 07/03/22 07/03/22 Range/Units 00:37 00:37 07:42 Plt Count (150-450) k/uL Lymphocytes # (1.0-4.8) k/uL APTT 31.7 H 38.1 H (22.0-30.0) sec D-Dimer (<0.60) mg/L FEU Sodium (137-145) mmol/L Glucose (74-99) mg/dL Calcium (8.4-10.2) mg/dL Troponin I 0.187 H* (0.000-0.034) ng/mL Total Protein (6.3-8.2) g/dL HDL Cholesterol (40.00-60.00) mg/dL 07/03/22 07/03/22 Range/Units 07:42 07:42 Plt Count 139 L (150-450) k/uL Lymphocytes # 0.6 L (1.0-4.8) k/uL APTT (22.0-30.0) sec D-Dimer (<0.60) mg/L FEU Sodium 133 L (137-145) mmol/L Glucose 108 H (74-99) mg/dL Calcium 8.3 L (8.4-10.2) mg/dL Troponin I (0.000-0.034) ng/mL Total Protein (6.3-8.2) g/dL HDL Cholesterol (40.00-60.00) mg/dL Thrombosis Risk Factor Assmnt - Choose All That Apply Any of the Below Risk Factors Present?: No Each Risk Factor Represents 2 Points: Age 61-74 years Other congenital or acquired thrombophilia - If yes, enter type in comment: No Thrombosis Risk Factor Assessment Total Risk Factor Score: 2 Thrombosis Risk Factor Assessment Level: Low Risk
[2022-07-04] MEDS: ACETAMINOPHEN TAB 325 MG TAB PO PRN ×2 (00:17→19:42)
[2022-07-04] MEDS: PANTOPRAZOLE 40 MG TABLET PO SCH ×3 (00:19→16:40)
[2022-07-04 06:07] LABS: Glucose,Whole Blood 98 mg/dL (70-110)
[2022-07-04] MEDS: SODIUM CHLORIDE 0.9% 1,000 ML IV SCH ×3 (06:12→16:37)
[2022-07-04] MEDS: METOPROLOL TARTRATE 25 MG TAB PO SCH ×2 (06:24→19:39)
[2022-07-04] MEDS: LOSARTAN 50 MG TAB PO SCH (06:24)
[2022-07-04] MEDS: ASPIRIN 81 MG PO SCH (06:24)
[2022-07-04] MEDS ORDERED: HEPARIN SODIUM,PORCINE 2,500 UNIT in SODIUM CHLORIDE 0.9% 250 ML IRRIGATION PRN (07:00)
[2022-07-04] MEDS ORDERED: HEPARIN SODIUM,PORCINE 10,000 UNIT in SODIUM CHLORIDE 0.9% 1,000 ML IRRIGATION PRN (07:00)
[2022-07-04] MEDS ORDERED: ASPIRIN 81 MG ONE (09:28)
[2022-07-04] MEDS ORDERED: fentaNYL (PF) 50 MCG/ML 2 ML AMP ONE (09:28)
[2022-07-04] MEDS ORDERED: HEPARIN SODIUM 1,000 UN/ML (10ML VL) ONE (09:28)
[2022-07-04] MEDS ORDERED: IV FLUID CONTINUATION 1,000 ML IV ONE (09:35)
[2022-07-04] MEDS ORDERED: MIDAZOLAM 2 MG/2 ML VIAL IV ONE (09:38)
[2022-07-04] MEDS ORDERED: fentaNYL (PF) 50 MCG/ML 2 ML AMP IV ONE (09:38)
[2022-07-04] MEDS ORDERED: LIDOCAINE 1% INJ 10MG/ML (5 ML VIAL-PF) SQ ONE (09:39)
[2022-07-04] MEDS ORDERED: VERAPAMIL SYRINGE (5 MG/10 ML) INTRAARTER ONE (09:40)
[2022-07-04] MEDS ORDERED: ASPIRIN 81 MG PO ONE (09:40)
[2022-07-04] MEDS: HEPARIN SODIUM 1,000 UN/ML (10ML VL) IV ONE ×2 (09:42→09:58)
[2022-07-04] MEDS ORDERED: IOPAMIDOL-370 125ML BTL INJ ONE (10:15)
--- NOTE | 2022-07-04 12:14 | CT ---
EXAMINATION TYPE: CT brain wo con CT DLP: 1161.4 mGycm, Automated exposure control for dose reduction was used. DATE OF EXAM: 07/04/2022 12:02 PM COMPARISON: None. CLINICAL INDICATION:Female, 71 years old with history of slurred speech, Slurred speech. TECHNIQUE: Brain: Multiple axial CT images of the brain were obtained without IV contrast. Coronal and sagittal reformats reviewed. FINDINGS: Brain: Extra-axial spaces: No abnormal extra-axial fluid collections. Ventricular system: Within normal limits Cerebral parenchyma: No acute intraparenchymal hemorrhage or mass effect. The anderson-white junction is well differentiated. Scattered hypoattenuating areas are seen within the white matter. Cerebellum: Unremarkable. Mass effect: No evidence of midline shift. Intracranial vasculature: unremarkable Soft tissues: Normal. Calvarium/osseous structures: No depressed skull fracture. Paranasal sinuses and mastoid air cells: Mild scattered paranasal sinus disease. Visualized orbits: Orbital contents are intact. IMPRESSION: 1. No acute intracranial process. 2. Nonspecific white matter changes, likely secondary to chronic small vessel ischemic disease.
--- NOTE | 2022-07-04 12:37 | P.CARDCATH ---
Description of Procedure: PROCEDURES PERFORMED: Left heart catheterization, bilateral coronary angiography, iFR LAD, iFR circumflex INDICATION: Non-STEMI, atrial fibrillation CONSENT:I have discussed the risks, benefits and alternative therapies for the above-mentioned procedure and for both sedation/analgesia as well as necessary blood product administration, if indicated, as they pertain to this patient. The patient has indicated understanding and acceptance of the risks and procedures discussed. PROCEDURE: After the risks, benefits and alternatives of the above mentioned procedure explained in detail with the patient, informed consent was obtained. Patient was taken to the catheterization lab and prepped and draped in usual fashion. 1% lidocaine was used to anesthetize the right radial artery. A 6- Salvadorean sheath was placed in the right radial artery using modified Seldinger technique. Left coronary angiography was performed with a 5-Salvadorean JL 3.5 catheter and right coronary angiography was performed with a 5-Salvadorean JR5 catheter in various views. A 5-Salvadorean FR5 catheter was inserted into the left ventricle and pressure measurements were obtained. The decision was made to perform iFR of the LAD and circumflex. A 6-Salvadorean CLS 3.5 guide was easing Bebo left main. A 0.014 pressure wire was obtained since the proximal left main and normalize. He was then placed 1 cm distal to the circumflex and LAD lesions. iFR of the circumflex was normal at 1.0 and of the LAD was normal at 0.92. The right radial sheath was removed and a TR band was placed with hemostasis achieved. The patient tolerated the procedure well. Patient was transported back to the post catheterization holding area in stable condition. Conscious Sedation: Patient was monitored under the direct supervision of myself for conscious sedation using Versed and fentanyl for a total duration of 24 minutes HEMODYNAMICS: Aorta: 137/84 LV: 141/5, LVEDP 22 SELECTIVE CORONARY ARTERIOGRAPHY: LEFT MAIN: The left main is a large caliber vessel which bifurcates into the LAD, ramus and circumflex. There is no significant stenosis. LEFT ANTERIOR DESCENDING CORONARY ARTERY: LAD is a large caliber vessel which wraps around to the apex. There is diffuse 40-50% mid LAD stenosis just after a moderate caliber diagonal 1 branch and otherwise mild luminal irregularities of the distal to apical LAD. RAMUS INTERMEDIUS: The ramus is a moderate caliber vessel with no significant stenosis LEFT CIRCUMFLEX CORONARY ARTERY: Left circumflex is a moderate caliber vessel with proximal circumflex 50% and mid circumflex 40-50% stenosis. The circumflex gives off a small caliber OM1 and small to moderate caliber OM 2. RIGHT CORONARY ARTERY: The right coronary artery is a large caliber vessel which gives off a PDA and PLV branch and is the dominant vessel. There is diffuse 30- 40% proximal to distal RCA stenosis. FINAL IMPRESSION: 1. CAD as described above including diffuse 30-40% RCA, 40-50% circumflex and 40-50% mid LAD stenosis 2. iFR circumflex and LAD normal 3. Elevated left sided filling pressures PLAN: 1. Aggressive risk factor modification per most recent ACC/AHA guidelines. 2. Continue with medical therapy, more aggressive cholesterol regimen.
--- NOTE | 2022-07-04 13:30 | P.PN ---
Subjective Progress Note Date: 07/04/22 History of present illness: This is a 71 year old female 71-year-old female was been seen by Dr. Escamilla in May 2021 and now follows with a boat puller that with history of paroxysmal atrial fibrillation, coronary artery disease with angioplasty 20 years ago, paroxysmal atrial fibrillation and statin intolerance. Patient presented to the hospital due to A. fib with RVR and since patient has converted to sinus rhythm. She had a CT angiogram due to back discomfort which showed no aortic dissection no pulmonary embolism. EKG was atrial fibrillation with RVR and repeat revealed precordial nonspecific ST-T wave changes. Troponin was elevated patient was suggested to go for cardiac catheterization which was performed by Dr. Escamilla which revealed diffuse 30-40% RCA, 40-50% circumflex and 40-50% mid LAD stenosis. iFR circumflex and LAD normal. Elevated left-sided filling pressures. Plan is for aggressive risk factor modification and continue medical therapy.. Physical examination: Gen: This is a morbidly obese 71-year-old female. No acute distress VS: reviewed NEUROLOGICAL: Patient is awake, alert and oriented. Assessment: Paroxysmal atrial fibrillation presenting in RVR, currently in sinus rhythm Abnormal troponin, non-ST elevated myocardial infarction ruled out Elevated troponin most likely due to atrial fibrillation with RVR History of coronary artery disease with prior PTCA Inflammatory arthritis Hypertension Hyperlipidemia Plan: Patient to continue current cardiac medications Start patient on eliquis 5 mg twice daily Patient to follow-up with her boat puller in 1-2 weeks. Patient is cleared for discharge from cardiology. Nurse practitioner note has been reviewed, I agree with documented findings and plan of care. Patient was seen and examined. Objective - Vital Signs Vital signs: Vital Signs Temp 98.5 F 07/04/22 10:26 Pulse 90 07/04/22 12:18 Resp 18 07/04/22 12:18 BP 103/65 07/04/22 11:41 Pulse Ox 95 07/04/22 11:41 FiO2 Intake & Output 07/03/22 07/04/22 07/04/22 18:59 06:59 18:59 Intake Total 380.828 100 Balance 380.828 100 Intake: IV 100 Intake, IV Titration 200.828 Amount Heparin Sod,Pork in 0.45% 200.828 NaCl 25,000 unit In 0.45 % NaCl 1 250ml.bag @ 8.48 UNITS/KG/HR 10.001 mls/ hr IV .Q24H [facility] Rx#: [id number] Oral 180 Other: Voiding Method Toilet Toilet # Voids 1 - Labs CBC & Chem 7: 07/03/22 07:42 07/03/22 07:42 Labs: Abnormal Lab Results - Last 24 Hours (Table) 07/03/22 07/04/22 Range/Units 14:40 08:19 APTT 54.1 H 41.7 H (22.0-30.0) sec
--- NOTE | 2022-07-04 15:05 | P.CNNES ---
History of Present Illness Consult date: 07/04/22 Requesting physician: Rikki Walter Reason for Consult: slurred speech post hear cath History of Present Illness: This is a 71-year-old woman with history of atrial fibrillation noncompliant taking Xarelto presented emergency department with cough as well as back pain with chest pressure. Neurology is consulted for slurred speech post cardiac cath today. Some of the history is obtained from patient's daughter was at bedside as well as the nurse. According to patient she stated that she's been noncompliant taken her home dose of Xarelto for her A. fib for the past 6 weeks since it was too expensive for her. He presented with abnormal troponin and 1 for a cardiac cath today and according to the daughter about 10:48 AM today which was 20 minutes after finishing cardiac cath patient was having difficulty getting her words out even though she was a attempting to talk and slurring her speech. Patient denies of any focal weakness, numbness, any visual disturbance. Her episode lasted the between 5 and 10 minutes and according the patient nurse lasted for a few minutes. Patient denies history of stroke or TIAs in the past. It does not. The patient a blood pressure was checked post having this event. She was not on ASA at home. Some of the workup during his hospital visit consisted of: Troponin got as high as 0.207 Lipid panel is triglyceride 111, cholesterol 161, LDLs 104 and HDL is 34. Cardiac cath is reported as coronary artery disease as described above including diffuse 30-40% right ICA, 40-50% circumflex and 40-50% mild LAD stenosis. Aggressive risk factor modification per recent ACC/AHA guideline. CT of the head is reported as no acute intracranial processes. Nonspecific white matter changes, likely secondary due to chronic small vessel ischemic disease. No IV TPA since the patient symptoms has resolved. And the risk outweighed the benefit. Review of Systems Review of system: The 12 point system was reviewed and apparent positive and negative per HPI. Past Medical History Past Medical History: Atrial Fibrillation, Hypertension, Myocardial Infarction ([place]), Musculoskeletal Disorder, Rheumatoid Arthritis ([place]) Additional Past Medical History / Comment(s): Back pain, hx ulcers. rt hip needs replacement. 05/14 [facility] for back pain and pain in side dx for ulcers. went into [facility] 2 days after discharge from [place] for rt arm edema and stayed for afib. Placed on heart monitor and in afib 10% of the time. Put on xarelto. arthritis generalized. left back lipoma for 4 yrs, now hurting. Last Myocardial Infarction Date:: 2001 History of Any Multi-Drug Resistant Organisms: None Reported Past Surgical History: Heart Catheterization Additional Past Surgical History / Comment(s): Abd. tumor/ ?benign/ no further [place]; pain procedures, colonoscopy Past Anesthesia/Blood Transfusion Reactions: No Reported Reaction Past Psychological History: No Psychological Hx Reported Smoking Status: Former smoker Past Alcohol Use History: None Reported Additional Past Alcohol Use History / Comment(s): smoked 1ppd for 40 years; quit 20 yrs ago Past Drug Use History: None Reported - Past Family History Brother(s) Family Medical History: Cancer Additional Family Medical History / Comment(s): Colon Ca Father Family Medical History: Myocardial Infarction ([place]) Mother Family Medical History: Cancer Additional Family Medical History / Comment(s): breast Sister(s) Family Medical History: Cancer Additional Family Medical History / Comment(s): ovarian Medications and Allergies Home Medications Medication Instructions Recorded Confirmed Type Losartan [Cozaar] 50 mg PO DAILY 05/01/21 07/02/22 History Meloxicam [Mobic] 15 mg PO DAILY 07/02/22 07/02/22 History Rosuvastatin [Crestor] 20 mg PO HS 07/02/22 07/02/22 History Allergies Allergy/AdvReac Type Severity Reaction Status Date / Time cyclobenzaprine Allergy Unknown Verified 07/02/22 19:24 [From Flexeril] Sulfa (Sulfonamide Allergy states she Verified 07/02/22 19:24 Antibiotics) feels terrible, can't move Physical Examination - Vital Signs Vital Signs: Vital Signs Temp Pulse Pulse Resp BP Pulse Ox 07/04/22 14:45 75 18 07/04/22 13:11 75 18 106/69 92 L 07/04/22 12:18 90 18 07/04/22 12:11 78 18 99/65 96 07/04/22 11:41 90 18 103/65 95 07/04/22 11:11 77 18 104/67 97 07/04/22 10:56 84 18 98/64 94 L 07/04/22 10:41 67 18 94/59 94 L 07/04/22 10:26 98.5 F 78 18 117/68 95 07/04/22 08:00 102 H 18 111/66 96 07/04/22 04:00 97.7 F 107 H 22 144/85 95 07/04/22 02:00 95 18 07/04/22 00:00 95 18 109/72 98 07/03/22 20:44 94 L 07/03/22 20:00 98.2 F 107 H 18 113/74 94 L 07/03/22 15:16 67 16 102/66 95 Intake and Output 07/03/22 07/04/22 07/04/22 22:59 06:59 14:59 Intake Total 95.901 100 Balance 95.901 100 Intake: IV 100 Intake, IV Titration 95.901 Amount Heparin Sod,Pork in 0.45% 95.901 NaCl 25,000 unit In 0.45 % NaCl 1 250ml.bag @ 8.48 UNITS/KG/HR 10.001 mls/ hr IV .Q24H [facility] Rx#: [id number] Other: Voiding Method Toilet Toilet Toilet # Voids 0 1 GENERAL: The patient is lying in bed and is not in acute distress. CHEST: The heart rate is regular rate rhythm. No murmurs to auscultation. LUNG: Clear to auscultation bilaterally no wheezing noted throughout. Not labored breathing. ABDOMEN/GI: Bowel sounds present in all 4 quadrants. No tenderness to palpation throughout. NEUROLOGICAL: Higher mental function: The patient is awake, alert, oriented to self, place and time. Patient is following commands. No aphasia and no neglect. Cranial nerves: The pupils are round, equal and reactive to light and accommodation. Visual browne are full to confrontation throughout. Extraocular movement is intact no nystagmus is noted. Facial sensation is normal to touch throughout. The facial strength is normal throughout. Hearing is normal bilaterally to hand rub. Tongue is midline and moved [id number] without any difficulty. No dysarthria is noted. Shoulder shrug is normal bilaterally. Motor: The strength is unable to assess indvidual muscle strength on the right upper since had recent cardiac cath but liftin above gravity without difficulty. Otherwise 5 over 5 throughout. Normal tone and bulk. Cerebellum: Normal finger to nose bilaterally. Sensation: Sensation is normal to touch throughout. Reflexes (right/left): 1+ lowers. Plantars are mute bilaterally. Results - Laboratory Findings CBC and BMP: 07/03/22 07:42 07/03/22 07:42 Abnormal Lab Findings: Abnormal Labs 07/02/22 07/02/22 07/02/22 18:33 18:33 18:33 Plt Count 128 L Lymphocytes # 0.7 L APTT D-Dimer Sodium 136 L Glucose 100 H Calcium Troponin I 0.207 H* Total Protein 6.2 L HDL Cholesterol 07/02/22 07/02/22 07/02/22 18:33 18:33 21:34 Plt Count Lymphocytes # APTT D-Dimer 2.90 H Sodium Glucose Calcium Troponin I 0.204 H* Total Protein HDL Cholesterol 34.70 L 07/03/22 07/03/22 07/03/22 00:37 00:37 07:42 Plt Count Lymphocytes # APTT 31.7 H 38.1 H D-Dimer Sodium Glucose Calcium Troponin I 0.187 H* Total Protein HDL Cholesterol 07/03/22 07/03/22 07/03/22 07:42 07:42 14:40 Plt Count 139 L Lymphocytes # 0.6 L APTT 54.1 H D-Dimer Sodium 133 L Glucose 108 H Calcium 8.3 L Troponin I Total Protein HDL Cholesterol 07/04/22 08:19 Plt Count Lymphocytes # APTT 41.7 H D-Dimer Sodium Glucose Calcium Troponin I Total Protein HDL Cholesterol Assessment and Plan Assessment: This is a 71-year-old woman with history of atrial fibrillation on Xarelto but has been noncompliant for 6 weeks since felt was a expensive. She presented to the emergency because of some chest pain and had some elevated troponin and on for cardiac cath and post-and She had a brief episode of expressive aphasia. Transient Expressive aphasia: Possible TIA vs unsure if she had hypotensive episode post cath. Limited troponin History of atrial fibrillation History of myocardial infarction History of hypertension History of peptic ulcer disease Noncompliant with medication Plan: The ED place the patient on Eliquis 5 mg 1 tablet twice a day as well as aspirin 81 mg daily was started by cardiology. She is on Lipitor 40mg qhs. She was given Lipitor 80mg loading dose. I personally reviewed the CT head and I agree no acute or subacute stroke. Carotid duplex is ordered by primary team. I will obtain MRI Brain if patient continues to have recurrent neurological issues. Neuro Q4 hours. For now I would not order physical, occupation or speech therapy assess the patient has no deficits but if she does, I will consult them. Cardiology is on board We'll defer the rest of the medical management the primary team For DVT prophylaxis the patient is on Eliquis. The plan was discussed with the patient, her daughter was at bedside and the patient's nurse. Thank you for the consultation. Time with Patient: Greater than 30
[2022-07-04] MEDS ORDERED: RIVAROXABAN 20 MG TAB PO SCH (17:30)
--- NOTE | 2022-07-04 19:06 | US ---
EXAMINATION TYPE: US carotid duplex BILAT DATE OF EXAM: 07/04/2022 COMPARISON: NONE CLINICAL INDICATION: Female, 71 years old with history of TIA; TIA TECHNIQUE: Carotid duplex ultrasound examination. Indirect Doppler criteria was utilized. FINDINGS: EXAM MEASUREMENTS: RIGHT: Peak Systolic Velocity (PSV) cm/sec ----- Right CCA: 41.6 ----- Right ICA: 54.6 ----- Right ECA: 86.0 ICA/CCA ratio: 1.3 RIGHT: End Diastole cm/sec ----- Right CCA: 16.8 ----- Right ICA: 14.2 ----- Right ECA: 18.1 LEFT: Peak Systolic Velocity (PSV) cm/sec ----- Left CCA: 66.4 ----- Left ICA: 84.6 ----- Left ECA: 46.1 ICA/CCA ratio: 1.3 LEFT: End Diastole cm/sec ----- Left CCA: 20.7 ----- Left ICA: 36.4 ----- Left ECA: 13.1 VERTEBRALS (direction of flow): Right Vertebral: Antegrade Left Vertebral: Antegrade Rhythm: Arrhythmia TICKER INSTALLER NOTES: Minimal plaque seen IMPRESSION: Less than 50% stenosis of the bilateral carotid bifurcations. Criteria for Assigning % of Stenosis / Diameter reduction (Estimation based on the indirect measurements of the internal carotid artery velocities (ICA PSV). 1. Normal (no stenosis)=ICA PSV < 125 cm/s: ratio < 2.0: ICA EDV<40 cm/s. 2. Less than 50% stenosis=ICA PSV < 125 cm/s: ratio < 2.0: ICA EDV<40 cm/s. 3. 50 to 69% stenosis=ICA PSV of 125 to 230 cm/s: ration 2.0 ? 4.0: ICA EDV 40-100 cm/s. 4. Greater than 70% stenosis to near occlusion= ICA PSV > 230 cm/s: ratio > 4.0: ICA EDV > 100 cm/s. 5. Near occlusion= ICA PSV velocities may be low or undetectable: variable ratio and ICA EDV. 6. Total occlusion=unable to detect flow.
[2022-07-04] MEDS: ATORVASTATIN 40 MG TAB PO SCH (19:39)
--- NOTE | 2022-07-04 20:02 | P.PN ---
Progress Note - Text Progress Note Date: 07/04/22 Chief Complaint: Short of breath This is a 71-year-old patient who follows with Dr. Codie woods. Chronic stable medical conditions include CAD with her DC 20 years ago with angioplasty 2, osteoarthritis of the joints, peptic ulcer disease with ulcer in the stomach and the duodenal bulb , atrial fibrillation l. In the room his present her daughter. On the weekend when daughter was speaking with the patient on the phone she noted that the patient was short of breath and wanted to go to bed. 2 feeding tired. A patient with a similar episode and when they checked in the ER she was in atrial fibrillation with a rate anywhere from 70-120. Patient is put on IV heparin, IV Cardizem. Then she went into sinus rhythm. Patient also arthritic pain in joints flared up. No fever no chills. July 04: This morning patient underwent cardiac catheterization by Dr. Bridger calvin. Found to have nonobstructive disease. When patient returned to the room had an episode of not able to speak, so child running in the hallway. Symptoms lasted about 5 minutes. No residual weakness. Computed tomography scan of the brain was unremarkable. Patient is sitting on side of the bed. No focal weakness. Neurology was consulted. Carotid Doppler no critical stenosis. Care was discussed with the daughter the bedside. Plan to have MRI if any repeat neuro symptoms. Per neurology. Discussed with patient and daughter. Total time spent today more than 50 minutes. Active Medications Acetaminophen (Acetaminophen Tab 325 Mg Tab) 650 mg PO Q6HR PRN PRN Reason: Mild Pain or Fever > 100.5 Last Admin: 07/04/22 19:42 Dose: 650 mg Alprazolam (Alprazolam 0.25 Mg Tab) 0.25 mg PO Q6HR PRN PRN Reason: Mild Anxiety Alprazolam (Alprazolam 0.5 Mg Tab) 0.5 mg PO Q6HR PRN PRN Reason: Moderate Anxiety Aspirin (Aspirin 81 Mg) 81 mg PO DAILY [facility] Last Admin: 07/04/22 06:24 Dose: 81 mg Atorvastatin Calcium (Atorvastatin 40 Mg Tab) 40 mg PO HS [facility] Last Admin: 07/04/22 19:39 Dose: 40 mg Calcium Carbonate/Glycine (Calcium Carbonate 500 Mg Chewable) 1,000 mg PO Q4HR PRN PRN Reason: Dyspepsia Heparin Sodium (Porcine) (Heparin Sodium 1,000 Un/Ml (10ml Vl)) 0 unit IV PER PROTOCOL PRN; Protocol PRN Reason: Low PTT Last Admin: 07/03/22 09:09 Dose: 2,948 unit Heparin Sodium (Porcine) 10, (000 unit/ Sodium Chloride) 1,001 mls @ 999 mls/hr IRRIGATION ONCE PRN PRN Reason: INTRA-OP Stop: 07/04/22 23:00 Heparin Sodium (Porcine) 2,500 (unit/ Sodium Chloride) 250.5 mls @ 250 mls/hr IRRIGATION ONCE PRN PRN Reason: INTRA-OP Stop: 07/04/22 23:00 Sodium Chloride (Saline 0.9%) 1,000 mls @ 75 mls/hr IV .[id number] [facility] Last Admin: 07/04/22 16:37 Dose: 75 mls/hr Lactulose (Lactulose 20 Gm/30 Ml Cup) 20 gm PO DAILY PRN PRN Reason: Constipation Lorazepam (Lorazepam 0.5 Mg Tab) 0.5 mg PO Q6HR PRN PRN Reason: Anxiety Losartan Potassium (Losartan 50 Mg Tab) 50 mg PO DAILY [facility] Last Admin: 07/04/22 06:24 Dose: 50 mg Melatonin (Melatonin 3 Mg Tablet) 3 mg PO HS PRN PRN Reason: Insomnia Metoprolol Tartrate (Metoprolol Tartrate 25 Mg Tab) 25 mg PO BID [facility] Last Admin: 07/04/22 19:39 Dose: 25 mg Naloxone HCl (Naloxone 0.4 Mg/Ml 1 Ml Vial) 0.2 mg IV Q2M PRN PRN Reason: Opioid Reversal Nitroglycerin (Nitroglycerin Sl Tabs 0.4 Mg Tab) 0.4 mg SUBLINGUAL Q5M PRN PRN Reason: Chest Pain Nitroglycerin (Nitroglycerin Sl Tabs 0.4 Mg Tab) 0.4 mg SUBLINGUAL Q5M PRN PRN Reason: Chest Pain Ondansetron HCl (Ondansetron 4 Mg/2 Ml Vial) 4 mg IVP Q8HR PRN PRN Reason: Nausea And Vomiting Pantoprazole Sodium (Pantoprazole 40 Mg Tablet) 40 mg PO AC-BID [facility] Last Admin: 07/04/22 16:40 Dose: 40 mg Rivaroxaban (Rivaroxaban 20 Mg Tab) 20 mg PO W/SUPPER [facility]; Protocol Last Admin: 07/04/22 16:40 Dose: 20 mg Past medical history to include: DC 20 years ago with angioplasty 2, osteoarthritis, stomach and duodenal ulcer . Atrial fibrillation Social history: Granddaughter Bill lives with her. Smoked a pack-a-day for 36 years stopped 20 years ago. Alcohol rarely. Family history: Colon cancer Physical examination: VITAL SIGNS: 98.5, 78, 18, 103/65, 95% room air GENERAL: BMI 42, sitting at the edge of the bed. EYES: Pupils equal. Conjunctiva normal. HEENT: External appearance of nose and ears normal, oral cavity grossly normal. NECK: JVD not raised; masses not palpable. HEART: Heart sounds are regular no edema. LUNGS: Respiratory rate normal; decreased breath sounds. ABDOMEN: Soft, nontender, liver spleen not palpable, no masses palpable. PSYCH: Alert and oriented x3; mood and affect normal. MUSCULOSKELETAL:No Clubbing/cyanosis;muscles-grossly intact . OA NEUROLOGICAL: Cranial nerves grossly intact; no facial asymmetry, power and sensation grossly intact. INVESTIGATIONS, reviewed in the clinical context: Carotid Doppler: Less than 50% stenosis of bilateral carotid bifurcation Cardiac catheterization: On obstructive disease CT brain: No acute process 2-D echocardiogram: EF 45-50%. Moderate LVH. July 03: WBC 4.7 hemoglobin 11.6 platelets 1:30 12/11/1934 potassium 3.8 cr eatinine 0.6 Troponin I 0.20, 0.20, 0.18 TSH 3.5 EKG tracing personally reviewed by me-normal sinus rhythm. 77. Mild T-wave changes. Chest x-ray film [personally reviewed by me]: No specific finding Thoracic aorta CT: No aneurysm. No infiltrates. Some gallbladder distention. Diverticulosis. Assessment and plan: -Paroxysmal atrial fibrillation with a rapid vent rate., back into sinus rhythm . Initially put on IV Cardizem and IV heparin. Cardiology following. Eliquis started. -Non-ST elevation myocardial infarction. IV heparin. Beta rafael. Aspirin. -Nonobstructive CAD per cardiac catheterization by Dr. Escamilla -IV heparin monitoring-discontinued Follow PTT -Gastric ulcer and duodenal bulb ulcer Continue PPI. -Coronary artery disease with DC 20 years ago with angioplasty 2 -Hypertensive heart disease Lopressor, losartan -Essential hypertension Lopressor, losartan -Morbid obesity BMI 42 Weight loss measures -Episode of 5 minutes of loss of speech. Recovered. Possible TIA.: New diagnosis CT brain negative. Carotid Doppler nonobstructive. If recurrent symptoms and MRI per neurology. We'll watch for 24 hours. Discussed with patient and daughter. Follow
[2022-07-04] MEDS ORDERED: APIXABAN 5 MG TAB PO SCH (21:00)
[2022-07-05] MEDS: ACETAMINOPHEN TAB 325 MG TAB PO PRN ×2 (01:59→08:26)
[2022-07-05] MEDS: PANTOPRAZOLE 40 MG TABLET PO SCH (06:44)
[2022-07-05 08:21] VITALS: RESP 18; TEMP 97.9
[2022-07-05] MEDS: ASPIRIN 81 MG PO SCH (08:22)
[2022-07-05] MEDS: METOPROLOL TARTRATE 25 MG TAB PO SCH (08:22)
[2022-07-05] MEDS: LOSARTAN 50 MG TAB PO SCH (08:22)
[2022-07-05 10:32] LABS: African American GFR (CKD) >90 (>60 ml/min/1.73 sqM); Anion Gap 6 mmol/L; Blood Urea Nitrogen 16 mg/dL (7-17); Calcium 8.2 mg/dL (8.4-10.2); Carbon Dioxide 23 mmol/L (22-30); Chloride 108 mmol/L (98-107); Glucose 102 mg/dL (74-99); Non-African American GFR(CKD) >90 (>60 ml/min/1.73 sqM); Potassium 3.6 mmol/L (3.5-5.1); Sodium 137 mmol/L (137-145)
[2022-07-05 12:19] VITALS: BP 107/78; PULSE 61
--- NOTE | 2022-07-05 12:31 | P.PN ---
Subjective Progress Note Date: 07/05/22 The patient is seen at bedside and states no further speech difficulty. Denies of any other neurological issues and feels at baseline. Objective - Vital Signs Vital signs: Vital Signs Temp 97.9 F 07/05/22 08:18 Pulse 61 07/05/22 12:16 Resp 18 07/05/22 12:16 BP 107/78 07/05/22 12:16 Pulse Ox 99 07/05/22 12:16 FiO2 Intake & Output 07/04/22 07/05/22 07/05/22 18:59 06:59 18:59 Intake Total 100 120 Balance 100 120 Intake: IV 100 Oral 120 Other: Voiding Method Toilet Toilet Toilet # Voids 1 - Exam GENERAL: The patient is lying in bed and is not in acute distress. NEUROLOGICAL: Higher mental function: The patient is awake, alert, oriented to self, place and time. Patient is following commands. No aphasia and no neglect. Cranial nerves: The pupils are round, equal and reactive to light and accommodation. Visual browne are full to confrontation throughout. Extraocular movement is intact no nystagmus is noted. Facial sensation is normal to touch throughout. The facial strength is normal throughout. Hearing is normal bilaterally to hand rub. Tongue is midline and moved [id number] without any difficulty. No dysarthria is noted. Shoulder shrug is normal bilaterally. Motor: The strength is unable to assess indvidual muscle strength on the right upper since had recent cardiac cath but liftin above gravity without difficulty. Otherwise 5 over 5 throughout. Normal tone and bulk. Cerebellum: Normal finger to nose bilaterally. Sensation: Sensation is normal to touch throughout. Reflexes (right/left): 1+ lowers. Plantars are mute bilaterally. Some of the workup during his hospital visit consisted of: Troponin got as high as 0.207 Lipid panel is triglyceride 111, cholesterol 161, LDLs 104 and HDL is 34. Cardiac cath is reported as coronary artery disease as described above including diffuse 30-40% right ICA, 40-50% circumflex and 40-50% mild LAD stenosis. Aggressive risk factor modification per recent ACC/AHA guideline. CT of the head is reported as no acute intracranial processes. Nonspecific white matter changes, likely secondary due to chronic small vessel ischemic di sease. Carotid duplex was reported as less than 50% stenosis of bilateral carotid bifurcation - Labs CBC & Chem 7: 07/03/22 07:42 07/05/22 08:09 Labs: Abnormal Lab Results - Last 24 Hours (Table) 07/05/22 Range/Units 08:09 Chloride 108 H (98-107) mmol/L Creatinine 0.50 L (0.52-1.04) mg/dL Glucose 102 H (74-99) mg/dL Calcium 8.2 L (8.4-10.2) mg/dL Assessment and Plan Assessment: This is a 71-year-old woman with history of atrial fibrillation on Xarelto but has been noncompliant for 6 weeks since felt was a expensive. She presented to the emergency because of some chest pain and had some elevated troponin and on for cardiac cath and post-and She had a brief episode of expressive aphasia. Transient Expressive aphasia:Probable TIA vs unsure if she had hypotensive episode post cath. Limited troponin History of atrial fibrillation History of myocardial infarction History of hypertension History of peptic ulcer disease Noncompliant with medication Plan: The patient is placed back on her home Xarelto and in addition was started on ASA 81mg daily. She is on Lipitor 40mg qhs. I personally reviewed the CT head and I agree no acute or subacute stroke. Neuro Q4 hours. For now I would not order physical, occupation or speech therapy assess the patient has no deficits but if she does, I will consult them. Cardiology is on board We'll defer the rest of the medical management the primary team For DVT prophylaxis the patient is on Xarelto Patient needs to follow-up with a neurologist within 1-2 weeks as outpatient. The plan was discussed with the patient. There is no further neurological work-up. Patient is clear from neurological perspective. Time with Patient: Less than 30
--- NOTE | 2022-07-05 23:41 | P.DS ---
Providers Date of admission: 07/02/22 20:44 Expected date of discharge: 07/05/22 Attending physician: Rikki Walter Consults: 07/02/22 20:44 Consult Physician Urgent Consulting Provider: [facility] Consult Reason/Comments: N STEMI, A. fib Do you want consulting provider notified?: Yes 07/04/22 11:59 Consult Physician Routine Consulting Provider: Man Pedro Consult Reason/Comments: slurred speech post heart cath Do you want consulting provider notified?: Yes Primary care physician: Codie Woods [facility] Course: Chief Complaint: Short of breath This is a 71-year-old patient who follows with Dr. Codie woods. Chronic stable medical conditions include CAD with her [place] 20 years ago with angioplasty 2, osteoarthritis of the joints, peptic ulcer disease with ulcer in the stomach and the duodenal bulb , atrial fibrillation l. In the room his present her daughter. On the weekend when daughter was speaking with the patient on the phone she noted that the patient was short of breath and wanted to go to bed. 2 feeding tired. A patient with a similar episode and when they checked in the ER she was in atrial fibrillation with a rate anywhere from 70-120. Patient is put on IV heparin, IV Cardizem. Then she went into sinus rhythm. Patient also arthritic pain in joints flared up. No fever no chills. July 04: This morning patient underwent cardiac catheterization by Dr. Escamilla. Found to have nonobstructive disease. When patient returned to the room had an episode of not able to speak, so child running in the hallway. Symptoms lasted about 5 minutes. No residual weakness. Computed tomography scan of the brain was unremarkable. Patient is sitting on side of the bed. No focal weakness. Neurology was consulted. Carotid Doppler no critical stenosis. Care was discussed with the daughter the bedside. Plan to have MRI if any repeat neuro symptoms. Per neurology. Discussed with patient and daughter. To cielo time spent today more than 50 minutes. July 05: Feeling well. No cardiac symptoms. Neuro workup came back to be negative. Cleared for discharge. Past medical history to include: [place] 20 years ago with angioplasty 2, osteoarthritis, stomach and duodenal ulcer . Atrial fibrillation Social history: Granddaughter Bill lives with her. Smoked a pack-a-day for 36 years stopped 20 years ago. Alcohol rarely. Family history: Colon cancer Physical examination: VITAL SIGNS: 16, 18, 107/78, 99% room air GENERAL: BMI 42, sitting at the edge of the bed. EYES: Pupils equal. Conjunctiva normal. HEENT: External appearance of nose and ears normal, oral cavity grossly normal. NECK: JVD not raised; masses not palpable. HEART: Heart sounds are regular no edema. LUNGS: Respiratory rate normal; decreased breath sounds. ABDOMEN: Soft, nontender, liver spleen not palpable, no masses palpable. PSYCH: Alert and oriented x3; mood and affect normal. MUSCULOSKELETAL:No Clubbing/cyanosis;muscles-grossly intact . OA NEUROLOGICAL: Cranial nerves grossly intact; no facial asymmetry, power and sensation grossly intact. INVESTIGATIONS, reviewed in the clinical context: July 05: Potassium 3.6 creatinine 0.5 Carotid Doppler: Less than 50% stenosis of bilateral carotid bifurcation Cardiac catheterization: On obstructive disease CT brain: No acute process 2-D echocardiogram: EF 45-50%. Moderate LVH. July 03: WBC 4.7 hemoglobin 11.6 platelets 1:30 12/11/1934 potassium 3.8 creatinine 0.6 Troponin I 0.20, 0.20, 0.18 TSH 3.5 EKG tracing personally reviewed by me-normal sinus rhythm. 77. Mild T-wave changes. Chest x-ray film [personally reviewed by me]: No specific finding Thoracic aorta CT: No aneurysm. No infiltrates. Some gallbladder distention. Diverticulosis. Assessment and plan: -Paroxysmal atrial fibrillation with a rapid vent rate., back into sinus rhythm. Initially put on IV Cardizem and IV heparin. Cardiology following. Eliquis -Non-ST elevation myocardial infarction. IV heparin. Beta rafael. Aspirin. -Nonobstructive CAD per cardiac catheterization by Dr. Escamilla -IV heparin monitoring-discontinued Follow PTT -Gastric ulcer and duodenal bulb ulcer Continue PPI. -Coronary artery disease with [place] 20 years ago with angioplasty 2 -Hypertensive heart disease Lopressor, losartan -Essential hypertension Lopressor, losartan -Morbid obesity BMI 42 Weight loss measures -Episode of 5 minutes of loss of speech. Recovered. Possible TIA.: CT brain negative. Carotid Doppler nonobstructive. If recurrent symptoms and MRI per neurology. Disposition: Home Plan - Discharge Summary New Discharge Prescriptions: New Aspirin 81 mg PO DAILY tab Pantoprazole [Protonix] 40 mg PO AC-BID #60 tab Metoprolol Tartrate [Lopressor] 25 mg PO BID #60 tab Rivaroxaban [Xarelto] 20 mg PO W/SUPPER #30 tab Continue Rosuvastatin [Crestor] 20 mg PO HS Losartan [Cozaar] 50 mg PO DAILY Discontinued Meloxicam [Mobic] 15 mg PO DAILY Discharge Medication List Losartan [Cozaar] 50 mg PO DAILY 05/01/21 [History] Rosuvastatin [Crestor] 20 mg PO HS 07/02/22 [History] Aspirin 81 mg PO DAILY tab 07/05/22 [Rx] Metoprolol Tartrate [Lopressor] 25 mg PO BID #60 tab 07/05/22 [Rx] Pantoprazole [Protonix] 40 mg PO AC-BID #60 tab 07/05/22 [Rx] Rivaroxaban [Xarelto] 20 mg PO W/SUPPER #30 tab 07/05/22 [Rx] Follow up Appointment(s)/Referral(s): Codie Woods DO [Primary Care Provider] - 1-2 days (please call and make appointment ) Man Pedro MD [STAFF PHYSICIAN] - 1 Week (please call and make appointment) Patient Instructions/Handouts: A-fib (Atrial Fibrillation) (DC), Right Heart Catheterization (DC) Activity/Diet/Wound Care/Special Instructions: Follow up with primary global clinical leader in 1-2 weeks Discharge Disposition: HOME WITH HOME HEALTH SERVICES
--- NOTE | 2022-07-08 07:21 | CDI ---
Documentation Clarification Form Date: 07/08/22 From: Neeru Dan Admit Date: 07/02/2022 8:44:00 PM Patient Name: Minerva Howell Visit Number: [id number] Discharge Date: 07/05/2022 2:15:00 PM ATTENTION: The Clinical Documentation Specialists (CDI) and [facility] Coding Staff appreciate your assistance in clarifying documentation. Please respond to the clarification below the line at the bottom and electronically sign. The CDI & [facility] Coding staff will review the response and follow-up if needed. Please note: Queries are made part of the Legal Health Record. If you have any questions, please contact the author of this message via ITS. Dr. Rikki Walter, Conflicting documentation has been found in the medical record. As attending physician, please provide clarification. Per Dr Espinoza 07/04 progress note Abnormaltroponin,non-ST elevated myocardial infarctionruled out. Elevated troponinmost likely due toatrial fibrillationwith RVR Per your discharge summary Non-ST elevation myocardial infarction. History/Risk Factors: PAF, peptic ulcer disease, Hypertensive heart disease, morbid obesity w BMI 42.0, RA, inflammatory arthritis, CAD Clinical Indicators: Clinical picture suggests that [id number] MIandparoxysmal atrial fibrillation. (Alexis consult 07/03) Troponin: 0.207, 0.204, 0.187 EKG: precordial nonspecific ST and T-wave changes. Treatment: IV Heparin and hydrate with normal saline 75 ml hour, cardiac cath. New discharge meds: Aspirin, Lopressor, Xarelto & Protonix. Please clarify which diagnosis is most appropriate: [ + ] Non-ST SC ruled in [ ] Non-ST SC ruled out [ ] Type II SC due to atrial fibrillation [ ] Non-ischemic myocardia injury [ ] Other (please specify) [ ] Unable to determine MTDD
== END 2022-07-05 14:15 | disposition home or self-care (01) | DRG 281 ==
LOC: EC 16:03 → 3SCARD 20:44
PROVIDERS: ADMIT Hospitalist; ATTEND Hospitalist
PROC: 4A033BC Measurement of Arterial Pressure, Coronary, Percutaneous Approach (ICD-10-PCS; principal; 2022-07-04 09:30)
PROC: B2111ZZ Fluoroscopy of Multiple Coronary Arteries using Low Osmolar Contrast (ICD-10-PCS; principal; 2022-07-04 09:30)
PROC: 4A023N7 Measurement of Cardiac Sampling and Pressure, Left Heart, Percutaneous Approach (ICD-10-PCS; principal; 2022-07-04 09:30)
DX: I48.0 Paroxysmal atrial fibrillation (principal); I21.4 Non-ST elevation (NSTEMI) myocardial infarction; G45.9 Transient cerebral ischemic attack, unspecified; R47.01 Aphasia; Z68.41 Body mass index [BMI] 40.0-44.9, adult; K26.9 Duodenal ulcer, unspecified as acute or chronic, without hemorrhage or perforation; I11.9 Hypertensive heart disease without heart failure; E66.01 Morbid (severe) obesity due to excess calories; M06.4 Inflammatory polyarthropathy; M06.9 Rheumatoid arthritis, unspecified; Z20.822 Contact with and (suspected) exposure to COVID-19; Z28.310 Unvaccinated for COVID-19; I08.1 Rheumatic disorders of both mitral and tricuspid valves; E78.5 Hyperlipidemia, unspecified; I25.10 Atherosclerotic heart disease of native coronary artery without angina pectoris; I25.2 Old myocardial infarction; K25.9 Gastric ulcer, unspecified as acute or chronic, without hemorrhage or perforation; K59.00 Constipation, unspecified; G47.00 Insomnia, unspecified; F41.9 Anxiety disorder, unspecified; D17.1 Benign lipomatous neoplasm of skin and subcutaneous tissue of trunk; Z91.141 Patient's other noncompliance with medication regimen due to financial hardship; Z79.1 Long term (current) use of non-steroidal anti-inflammatories (NSAID); Z79.899 Other long term (current) drug therapy; Z98.61 Coronary angioplasty status; Z87.891 Personal history of nicotine dependence; Z87.11 Personal history of peptic ulcer disease; Z88.2 Allergy status to sulfonamides; Z88.8 Allergy status to other drugs, medicaments and biological substances; Z82.49 Family history of ischemic heart disease and other diseases of the circulatory system
CPT/HCPCS: 36415; 70450; 71046; 71275; 74174; 80048; 80053; 80061; 83735; 84443; 84484; 85025; 85379; 85610; 85730; 87636; 93005; 93306; 93458; 93799; 93880; 96365; 96366; 96368; 96375; 99291

== ENCOUNTER → 2022-07-17 | Outpatient (CLI) | payer MEDICARE | END | disposition home or self-care (01) | LOC: LABPAT 13:04 | PROVIDERS: ATTEND Orthopaedic Surgery | DX: Z01.812 Encounter for preprocedural laboratory examination (principal); Z22.322 Carrier or suspected carrier of Methicillin resistant Staphylococcus aureus; M16.11 Unilateral primary osteoarthritis, right hip | CPT/HCPCS: 87070 ==

== ENCOUNTER → 2022-09-01 | Outpatient (CLI) | payer MEDICARE | END | disposition home or self-care (01) | LOC: LABPAT 11:49 | PROVIDERS: ATTEND Orthopaedic Surgery | DX: Z53.9 Procedure and treatment not carried out, unspecified reason (principal) ==

== ENCOUNTER 2022-09-02 05:31 | Inpatient (IN) | payer MEDICARE ==
[2022-08-29 14:03] VITALS: BMI 42.7
--- NOTE | 2022-09-01 12:35 | P.HPOR ---
History of Present Illness H&P Date: 09/01/22 Chief Complaint: Right hip pain The patient's a 72-year-old female who presents progressive right hip pain for the past several years worsening recently. She notes thigh and groin pain worse with weightbearing activities. She also has difficult time with getting up from a seated position. She uses a cane or walker. She finds herself limping. She is having night symptoms. Review of Systems Negative except as in HPI Past Medical History Past Medical History: Atrial Fibrillation, Hypertension, Myocardial Infarction (MO), Musculoskeletal Disorder, Rheumatoid Arthritis (RA) Additional Past Medical History / Comment(s): Back pain, hx ulcers. rt hip needs replacement. 05/14 [facility] for back pain and pain in side for ulcers. went into [facility] 2 days after discharge from [place] for rt arm edema and stayed for afib. Placed on heart monitor and in afib 10% of the time. Put on xarelto. arthritis generalized. 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; pain procedures, colonoscopy,lipomas removed Past Anesthesia/Blood Transfusion Reactions: No Reported Reaction, Motion Sickness Additional Past Anesthesia/Blood Transfusion Reaction / Comment(s): no hx blood transfusion Smoking Status: Former smoker - Past Family History Brother(s) Family Medical History: Cancer Additional Family Medical History / Comment(s): Colon Ca Father Family Medical History: Myocardial Infarction (MO) Mother Family Medical History: Cancer Additional Family Medical History / Comment(s): breast Sister(s) Family Medical History: Cancer Additional Family Medical History / Comment(s): ovarian Medications and Allergies Home Medications Medication Instructions Recorded Confirmed Type Losartan [Cozaar] 100 mg PO QAM 05/01/21 08/29/22 History Rosuvastatin [Crestor] 20 mg PO HS 07/02/22 08/29/22 History Metoprolol Tartrate [Lopressor] 25 mg PO BID #60 tab 07/05/22 08/29/22 Rx Rivaroxaban [Xarelto] 20 mg PO QAM 08/29/22 08/29/22 History Vitamin B12 Unk Dose 1 dose PO DAILY 08/29/22 08/29/22 History Vitamin C Unk Dose 1 dose PO DAILY 08/29/22 08/29/22 History Vitamin D Unk Dose 1 dose PO DAILY 08/29/22 08/29/22 History Vitamin E Unk Dose 1 dose PO DAILY 08/29/22 08/29/22 History Allergies Allergy/AdvReac Type Severity Reaction Status Date / Time cyclobenzaprine Allergy gets Verified 08/29/22 13:25 [From Flexeril] shakey and hands turn anderson Sulfa (Sulfonamide Allergy states she Verified 08/29/22 13:25 Antibiotics) feels terrible, can't move,vomiting Physical Examination - Hip right Gait: antalgic Tenderness with palpation: anterior Pain with motion: internal rotation and hip flexion ROM: flexion: 70 degrees ROM: internal rotation: 0 degrees (With pain) ROM: external rotation: 40 degrees Crepitus with motion: Yes Strength: extension: 5/5 Strength: flexion: 5/5 Strength: abduction: 5/5 Tests: impingement tests: positive Results The patient is a well-developed well-nourished female approximately 5 foot 6, 260 pounds of endomorphic habitus. HEENT exam is nonfocal, neck is supple. She has limited passive motion of the right hip with pain. Clinically she has 1 cm shortening of the right lower extremity compared to the left. Her distal neurovascular exam appears intact right lower extremity. - Diagnostic results Hip x-ray: image reviewed (AP and lateral views of the right hip obtained in the office show severe osteoarthrosis with [id number] changes and subchondral sclerosis.) Assessment and Plan Assessment: Right hip severe osteoarthrosis Atrial fibrillation on anticoagulation Plan: I talked with the patient regarding her condition along with treatment options. At this point she is quite limited because of pain related to her right hip osteoarthrosis despite conservative measures. After thorough discussion she opts to proceed with surgery. We'll plan to proceed with right total hip arthroplasty utilizing a lateral approach. Risks and benefits were discussed at length in layman's terms. We will reinstitute her and a coagulation p ostoperatively.
[2022-09-01 12:37] LABS: INR 0.9 (<1.2); Prothrombin Time 10.1 sec (9.0-12.0)
[~2022-09-02 05:31] MED LIST changes: +ACETAMINOPHEN TAB 500 MG TAB PO PRN; -HEPARIN SODIUM,PORCINE/PF 5,000 UNIT/0.5 ML SYRINGE SQ PRN; -HYDROmorphone 0.5 MG/0.5 ML SYRINGE IVP PRN; -LACTATED RINGERS 1,000 ML IV SCH; +MELOXICAM 7.5 MG TAB PO PRN; -ONDANSETRON 4 MG/2 ML VIAL IVP ONE; -ONDANSETRON 4 MG/2 ML VIAL IVP PRN; +TRANEXAMIC 1,000 MG/100ML-NACL 1,000 MG in SALINE 1 100ML.BAG IVPB PRN; +ceFAZolin 3 GM in SODIUM CHLORIDE 0.9% 100 ML IVPB PRN
[2022-09-02] MEDS: LACTATED RINGERS 1,000 ML IV SCH ×3 (06:38→15:12)
[2022-09-02] MEDS: ONDANSETRON 4 MG/2 ML VIAL IVP ONE ×2 (06:46→09:44)
[2022-09-02] MEDS ORDERED: fentaNYL (PF) 50 MCG/ML 2 ML AMP IVP ONE (06:52)
[2022-09-02] MEDS ORDERED: MIDAZOLAM 2 MG/2 ML VIAL IVP ONE (06:52)
[2022-09-02] MEDS ORDERED: ONDANSETRON 4 MG/2 ML VIAL IVP PRN (07:00)
[2022-09-02] MEDS ORDERED: HYDROmorphone (PF) 1 MG/ML ONE (07:16)
[2022-09-02] MEDS ORDERED: GLYCOPYRROLATE 0.2 MG/ML 2 ML VIAL ONE (07:16)
[2022-09-02] MEDS ORDERED: KETAMINE 10 MG/ML 20 ML VIAL ONE (07:16)
[2022-09-02] MEDS ORDERED: SUCCINYLCHOLINE CHLORIDE 200 MG/10 ML VIAL IV ONE (07:16)
[2022-09-02] MEDS ORDERED: TRANEXAMIC 1,000 MG/100ML-NACL PREMIX BAG ONE (07:16)
[2022-09-02] MEDS ORDERED: PROPOFOL 10 MG/ML 20 ML VIAL IV ONE (07:16)
[2022-09-02] MEDS ORDERED: ROCURONIUM 10 MG/ML (5 ML VIAL) IV ONE (07:16)
[2022-09-02] MEDS ORDERED: MIDAZOLAM 2 MG/2 ML VIAL ONE (07:16)
[2022-09-02] MEDS ORDERED: NEOSTIGMINE 1 MG/ML 10 ML VIAL ONE (07:16)
[2022-09-02] MEDS ORDERED: fentaNYL (PF) 50 MCG/ML 2 ML AMP ONE (07:16)
[2022-09-02] MEDS ORDERED: ROPIVACAINE 5 MG/ML 30 ML VIAL ONE (07:16)
[2022-09-02] MEDS ORDERED: LIDOCAINE 2% INJ 20 MG/ML (2 ML VIAL) ONE (07:16)
[2022-09-02] MEDS ORDERED: ceFAZolin 3,000 MG in SODIUM CHLORIDE 0.9% IRRIGATIO 3,000 ML IRRIGATION ONE (07:48)
[2022-09-02] MEDS ORDERED: LACTATED RINGERS 1,000 ML IV ONE ×2 (08:15→11:14)
[2022-09-02] MEDS ORDERED: MAGNESIUM HYDROXIDE 2,400 MG/10 ML CUP PO PRN (09:06)
[2022-09-02] MEDS ORDERED: NALOXONE 0.4 MG/ML 1 ML VIAL IV PRN (09:06)
[2022-09-02] MEDS ORDERED: HYDROmorphone 0.5 MG/0.5 ML SYRINGE IVP PRN (09:06)
--- NOTE | 2022-09-02 09:31 | P.ANPRN ---
Procedure Note - Anesthesia - Nerve Block Performed Right Abram Single Time Out Performed: Yes ([id number]) Date of Procedure: 09/02/22 Procedure Start Time: 06:52 Procedure Stop Time: 06:57 Location of Patient: PreOp Indication: Acute Post-Operative Pain, Requested by Surgeon Specifically requested for management of pain by DrSuyapa: Gilmar Patiño Sedation Type: Sedate with meaningful contact maintained Preparation: Sterile Prep Position: Supine Catheter: None Needle Types: Pajunk Needle Gauge: 21 Ultrasound used to visualize needle placement: Yes Ultrasound used to observe medication spread: Yes Injectate: 0.5% Ropivacaine (see comment for volume) (30cc) Blood Aspirated: No Pain Paresthesia on Injection Noted: No Resistance on Injection: Normal Image Stored and Saved: Yes Events: Uneventful and Well Tolerated
--- NOTE | 2022-09-02 09:32 | P.OP ---
Date of Procedure: 09/02/22 Preoperative Diagnosis: Right hip severe osteoarthrosis Postoperative Diagnosis: Same Procedure(s) Performed: Right total hip arthroplastypress-fitlateral approach Implants: Depuy Corail size 12 collared 125 high offset press-fit femoral stem, 36+1.5 cobalt chrome femoral head, 56 mm Dearing acetabular shell with neutral polyethylene liner. I did utilize a 6.5 x 25 mm cancellus screw. Anesthesia: KRIS, regional Surgeon: Gilmar Patiño Lens Grinder #1: Marck Erickson Estimated Blood Loss (ml): 200 Pathology: none sent Condition: stable Disposition: PACU Indications for Procedure: The patient is a 72-year-old female who presents with progressive right hip pain secondary to osteoarthrosis despite conservative measures. A discussion of the risks and benefits of operative intervention versus continued conservative measures was made with patient. She opted to proceed with surgery. Specific risks of surgery to include infection, neurovascular injury, development of blood clots, fracture, leg length discrepancy, component loosening/failure and possible need for subsequent procedures was discussed. Informed consent was obtained. Operative Findings: As below Description of Procedure: The patient was brought to the operating room, and after induction of spinal anesthesia was placed in a lateral decubitus position. The bony prominences were appropriately padded. The pelvis was stable perpendicular to the floor with a pegboard. The right lower extremity was prepped and draped in normal fashion. A 12 cm incision was then made centered over the greater trochanter extending superiorly to level the ASIS and distally in line with the femoral shaft. The skin and subcutaneous tissues were divided sharply. Electrocautery was used for hemostasis. The fascia eusebia and gluteus sp fascia was split in line with the skin incision. The muscle fibers were bluntly dissected proximally. A self-retaining retractor was placed. The anterior and posterior margins of the gluteus medius muscles identified and the anterior two thirds was detached from the greater trochanter with electrocautery. The gluteus minimus tendon was identified and detached in a similar fashion. A wide capsulotomy was performed. The femoral neck fracture was identified in the lower neck cut was made approximately 1 1/2 cm above the level of the lesser trochanter with a sagi ttal saw at a 45 the shaft. The head was then extracted with a corkscrew. Attention was then paid towards preparing the acetabular. Anterior and posterior retractors were placed. The remaining capsular labral tissues debrided sharply clearly defining the acetabular margins. Began reaming with a were benign mm reamer taking care to initially medialize, then reaming at 45 of abduction and 20 of anteversion. Sequential reaming is performed up to 55 mm. This was down to bleeding bony surface. A trial 56 mm acetabular shell was inserted at 45 of abduction and 20 of anteversion. This was fully seated. There was good rim fit and stability. A neutral polyethylene liner was then impacted. Care taken to avoid any soft tissue interposition. Attention was then paid towards preparing the proximal femur. A box chisel was used to open the metaphyseal region. A canal finder was used to find the femoral canal. Sequential broaching was performed up to a size 12. This is placed in 15 of anteversion with the leg perpendicular floor judging off the trans-epicondylar axis. There is good rotational stability. A calcar mill was used to fashion the medial calcar. A trial 125 high offset neck along with a 36 mm + 1.5 trial head was placed. The hip was gently reduced. It was taken through range of motion. I felt to be stable in flexion and extension with internal and external rotation. I felt there was adequate gnosticist of soft tissue tension. The hip was gently dislocated. The trial components removed. Pulsatile lavage was utilized. The final size 12 -125 high offset collared femoral stem was inserted again with the leg perpendicular to the floor in 15 of anteversion. Again there was good rotational stability. A 36 mm + 1.5 cobalt chrome femoral head was gently impacted. The hip was gently reduced. Again it was taken through motion and felt to be stable in flexion and extension with internal and external rotation. Pulsatile lavage was again utilized. With the leg in abduction the gluteus minimus and medius tendons reattached to the greater trochanter with #2 Ethibond suture. There was minimal drainage therefore a deep drain was not placed. The fascia eusebia and gluteus sp fascia was closed with #2 Ethibond suture. The subcutaneous tissues were reapproximated interrupted 2-0 Vicryl sutures. The skin was reapproximated with 3-0 sub cuticular strata fix suture. Skin tape and adhesive was applied. A sterile dressing was applied. The patient was awoken from sedation and transferred to recovery room in good condition. Blood loss was estimated 200 mL. No complications were incurred. Sponge and needle counts were correct in the case. Marck TIAN assisted during the major composes case to include exposure, implantation, and closure.
[2022-09-02] MEDS: HYDROmorphone 0.5 MG/0.5 ML SYRINGE IVP PRN ×4 (09:51→18:25)
--- NOTE | 2022-09-02 12:55 | XR ---
EXAMINATION TYPE: XR Hip Limited RT DATE OF EXAM: 09/02/2022 12:50 PM INDICATION: Patient age:Female; 72 years old; Reason for study: Status post hip surgery, assess surgical alignment; PH. COMPARISON: Right hip radiograph 07/16/2022 TECHNIQUE: The right hip was examined in frontal projection. FINDINGS: Postsurgical changes from right total hip arthroplasty. Hardware appears intact with approp riate alignment. There is associated soft tissue gas and edema. No acute fracture or dislocation. IMPRESSION: Postsurgical changes from right total hip arthroplasty. Hardware appears intact with appropriate alig nment.
[2022-09-02] MEDS: HYDROcodone/APAP 7.5-325MG 1 EACH TAB PO PRN ×2 (13:42→23:58)
--- NOTE | 2022-09-02 16:29 | P.CONS ---
History of Present Illness - Reason for Consult Consult date: 09/02/22 Medical management Requesting physician: Gilmar Patiño - Chief Complaint Hip surgery - History of Present Illness This is a 72-year-old patient who follows with Dr. Codie woods. Chronic stable medical conditions include CAD with her [place] 20 years ago with angioplasty 2, osteoarthritis of the joints, peptic ulcer disease with ulcer in the stomach and the duodenal bulb , atrial fibrillation . Cardiac catheterization by Dr. Escamilla in June of this issue nonobstructive disease. Today has undergone right total hip osteoplasty. Per Dr. Patiño. Postprocedure laying in bed. No nausea vomiting. No chest pain. Daughter the bedside. Pain control. Review of systems: GEN.: Tired EYES: None HEENT: None NECK: None RESPIRATORY: As above CARDIOVASCULAR: As above GASTROINTESTINAL: [Heartburn sometimes GENITOURINARY: None MUSCULOSKELETAL: Joint pains LYMPHATICS: None HEMATOLOGICAL: None PSYCHIATRY: None NEUROLOGICAL: None Past medical history to include: [place] 20 years ago with angioplasty 2, osteoarthritis, stomach and duodenal ulcer . Atrial fibrillation. Cardiac catheterization June 2022: Nonobstructive disease. Diverticulosis Social history: Granddaughter Bill lives with her. Smoked a pack-a-day for 36 years stopped 20 years ago. Alcohol rarely. Family history: Colon cancer Physical examination: VITAL SIGNS: 97.9, 51, 18, 146/56, 100% on 3 L GENERAL: BMI 41.6, reclining in bed EYES: Pupils equal. Conjunctiva normal. HEENT: External appearance of nose and ears normal, oral cavity grossly normal. NECK: JVD not raised; masses not palpable. HEART: Heart sounds are regular no edema. LUNGS: Respiratory rate normal; decreased breath sounds. ABDOMEN: Soft, nontender, liver spleen not palpable, no masses palpable. PSYCH: Alert and oriented x3; mood and affect normal. MUSCULOSKELETAL:No Clubbing/cyanosis;muscles-grossly intact . OA. Dressing over the right hip incision site NEUROLOGICAL: Cranial nerves grossly intact; no facial asymmetry, power and sensation grossly intact. LYMPHATICS: No lymph nodes palpable in the axilla and neck INVESTIGATIONS, reviewed in the clinical context: June 2022 [sodium 137 potassium 3.6 creatinine 0.5. Hemoglobin 11.6 platelets 139 Assessment and plan: -Right hip total arthroplasty. Patient is observed to document Dr. Patiño. -Paroxysmal atrial fibrillation = sinus rhythm. Resumes are going okay with orthopedics. Lopressor 25 mg twice a day -CAD. Prior angioplasty. Nonobstructive CAD per cardiac catheterization June [address] Escamilla -Essential hypertension Lopressor, losartan -Morbid obesity BMI 41.2 Weight loss measures -Chronic diverticulosis, asymptomatic Care was discussed with the patient. Home medications to be resumed. Start Xarelto when okay with orthopedics. Thank you Dr. Patiño Past Medical History Past Medical History: Atrial Fibrillation, Hypertension, Myocardial Infarction ([place]), Musculoskeletal Disorder, Rheumatoid Arthritis ([place]) Additional Past Medical History / Comment(s): Back pain, hx ulcers. rt hip needs replacement. 05/14 [facility] for back pain and pain in side dx for ulcers. went into [facility] 2 days after discharge from [place] for rt arm edema and stayed for afib. Placed on heart monitor and in afib 10% of the time. Put on xarelto. arthritis generalized. 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; pain procedures, colonoscopy,lipomas removed Past Anesthesia/Blood Transfusion Reactions: No Reported Reaction, Motion Sickness Additional Past Anesthesia/Blood Transfusion Reaction / Comm: no hx blood transfusion Smoking Status: Former smoker - Past Family History Brother(s) Family Medical History: Cancer Additional Family Medical History / Comment(s): Colon Ca Father Family Medical History: Myocardial Infarction ([place]) Mother Family Medical History: Cancer Additional Family Medical History / Comment(s): breast Sister(s) Family Medical History: Cancer Additional Family Medical History / Comment(s): ovarian Medications and Allergies Home Medications Medication Instructions Recorded Confirmed Type Losartan [Cozaar] 100 mg PO QAM 05/01/21 09/02/22 History Rosuvastatin [Crestor] 20 mg PO HS 07/02/22 09/02/22 History Metoprolol Tartrate [Lopressor] 25 mg PO BID #60 tab 07/05/22 09/02/22 Rx Rivaroxaban [Xarelto] 20 mg PO QAM 08/29/22 08/29/22 History Vitamin B12 Unk Dose 1 dose PO DAILY 08/29/22 08/29/22 History Vitamin C Unk Dose 1 dose PO DAILY 08/29/22 08/29/22 History Vitamin D Unk Dose 1 dose PO DAILY 08/29/22 08/29/22 History Vitamin E Unk Dose 1 dose PO DAILY 08/29/22 08/29/22 History Allergies Allergy/AdvReac Type Severity Reaction Status Date / Time cyclobenzaprine Allergy gets Verified 09/02/22 05:59 [From Flexeril] shakey and hands turn anderson Sulfa (Sulfonamide Allergy states she Verified 09/02/22 05:59 Antibiotics) feels terrible, can't move,vomiting Physical Exam Vitals: Vital Signs Temp Pulse Resp BP Pulse Ox 09/02/22 14:00 97.9 F 51 L 18 146/56 100 09/02/22 11:38 97.8 F 52 L 19 161/67 99 09/02/22 10:59 51 L 16 151/69 100 09/02/22 10:48 51 L 16 139/71 98 09/02/22 10:31 53 L 18 163/82 100 09/02/22 10:15 49 L 16 152/71 100 09/02/22 10:00 65 18 127/80 100 09/02/22 09:48 59 L 16 163/78 100 09/02/22 09:33 97.1 F L 71 16 168/81 100 09/02/22 07:05 57 L 16 128/58 100 09/02/22 06:17 96.9 F L 51 L 16 137/62 100 Intake and Output 09/02/22 09/02/22 09/02/22 06:59 14:59 22:59 Intake Total 2000 Output Total 200 Balance 1800 Intake: IV 2000 Output: Estimated Blood Loss 200 Other: Weight 116.9 kg 116.9 kg
[2022-09-02] MEDS: SENNOSIDES-DOCUSATE SODIUM 1 EACH TAB PO SCH (20:26)
[2022-09-02] MEDS: ATORVASTATIN 40 MG TAB PO SCH (20:26)
[2022-09-02] MEDS: METOPROLOL TARTRATE 25 MG TAB PO SCH ×2 (20:26→20:39)
[2022-09-03] MEDS: RIVAROXABAN 20 MG TAB PO SCH (07:42)
[2022-09-03] MEDS: METOPROLOL TARTRATE 12.5 MG TAB PO SCH ×2 (07:42→19:51)
[2022-09-03] MEDS: HYDROcodone/APAP 7.5-325MG 1 EACH TAB PO PRN ×2 (07:45→16:27)
[2022-09-03 08:23] LABS: Basophils % (A) 0 %; Eosinophils # (A) 0.1 k/uL (0-0.7); Eosinophils % (A) 1 %; HCT 31.1 % (34.0-46.0); Hypochromasia Slight; Lymphocytes # (A) 1.5 k/uL (1.0-4.8); Lymphocytes % (A) 21 %; MCH 29.9 pg (25.0-35.0); MCHC 31.8 g/dL (31.0-37.0); MCV 93.9 fL (80.0-100.0); Mean Platelet Volume 9.1; Monocytes # (A) 0.4 k/uL (0-1.0); Monocytes % (A) 6 %; Neutrophils # (A) 5.2 k/uL (1.3-7.7); Neutrophils % (A) 71 %; Platelet Count 169 k/uL (150-450); RBC 3.31 m/uL (3.80-5.40); RDW 14.8 % (11.5-15.5); WBC 7.3 k/uL (3.8-10.6)
[2022-09-03 08:50] LABS: HGB 9.9 gm/dL (11.4-16.0)
[2022-09-03] MEDS ORDERED: LOSARTAN 50 MG TAB PO SCH (09:00)
[2022-09-03] MEDS: HYDROmorphone 0.5 MG/0.5 ML SYRINGE IVP PRN ×3 (09:58→21:47)
[2022-09-03] MEDS: FERROUS SULFATE 325 MG TAB PO SCH ×2 (11:55→16:25)
--- NOTE | 2022-09-03 12:14 | P.PN ---
Subjective Progress Note Date: 09/03/22 Principal diagnosis: Right hip osteoarthritis Patient was seen at bedside this morning sitting up in chair with legs elevated icing her right hip. Dressing is in place over right hip. Patient says she was able to get up with therapy and sat in chair next to bed. Patient says she wasn't able to take remaining status so far. She says she has urinated several times since surgery yesterday. She says she has not had a bowel movement yet, however, patient says she has been passing gas. Patient says she is hoping your rehab on discharge. Patient denies chest pain, fever, shortness of breath, nausea, vomiting, change in vision, loss of bowel/bladder control. Objective - Vital Signs Vital signs: Vital Signs Temp 98.6 F 09/03/22 07:39 Pulse 56 L 09/03/22 07:39 Resp 18 09/03/22 07:39 BP 110/65 09/03/22 07:39 Pulse Ox 98 09/03/22 07:39 FiO2 Intake & Output 09/02/22 09/03/22 09/03/22 18:59 06:59 18:59 Intake Total 2000 Output Total 200 Balance 1800 Weight 116.9 kg Intake: IV 1999 Output: Estimated Blood Loss 200 Other: Voiding Method Toilet # Voids 0 3 # Bowel Movements 0 - Exam Right hip: Incision is clean, dry, and intact. The bulky dressing is in good condition. There is minimal soft tissue swelling and ecchymosis surrounding the medial and lateral aspects of the incision. Calf is soft, no tenderness with palpation. Plantar flexion, dorsiflexion, EHL, FHL are intact. Sensory exam to light touch throughout the extremity is intact, dorsal pedis pulses 2+. - Labs CBC & Chem 7: 09/03/22 07:12 Labs: Abnormal Lab Results - Last 24 Hours (Table) 09/03/22 Range/Units 07:12 RBC 3.31 L (3.80-5.40) m/uL Hgb 9.9 L D (11.4-16.0) gm/dL Hct 31.1 L (34.0-46.0) % Assessment and Plan Assessment: 1. Right hip osteoarthritis - Postop day #1 status post right total hip arthroplasty Plan: 1. Right hip osteoarthritis - right total hip arthroplasty performed yesterday, 09/02/2022. Patient stable at bedside this morning. Patient was able sit up in the chair next to bed today with therapy. Due to the patient's limited mobility and patient unable to being perform stairs. Plan for discharge to rehab when authorization is completed. We'll continue to follow patient d uring her stay in hospital. 2. Appreciate medical management 3. Pain management - [place] 4. DVT prophylaxis -Xarelto 5. GI prophylaxis - senna 6. PT/OT - weightbearing as tolerated with walker and assistance as necessary 7. Encourage incentive spirometer use 8. Discharge planning - plan for discharge to rehab when authorization is completed Time with Patient: Less than 30
--- NOTE | 2022-09-03 14:40 | P.PN ---
Progress Note - Text Progress Note Date: 09/03/22 - Chief Complaint Hip surgery Hospital course: This is a 72-year-old patient who follows with Dr. Codie woods. Chronic stable medical conditions include CAD with her [place] 20 years ago with angioplasty 2, osteoarthritis of the joints, peptic ulcer disease with ulcer in the stomach and the duodenal bulb , atrial fibrillation . Cardiac catheterization by Dr. Escamilla in June of this issue nonobstructive disease. Today has undergone right total hip osteoplasty. Per Dr. Patiño. Postprocedure laying in bed. No nausea vomiting. No chest pain. Daughter the bedside. Pain control. September 03: Some pain in the right hip. He tolerated diet. Breathing stable. Up in a chair. Active Medications Hydrocodone Bitart/Acetaminophen (Hydrocodone/Apap 5-325mg 1 Each Tab) 1 each PO Q6HR PRN PRN Reason: Pain Scale 1 to 5 Stop: 10/02/22 09:07 Hydrocodone Bitart/Acetaminophen (Hydrocodone/Apap 7.5-325mg 1 Each Tab) 1 each PO Q6H PRN PRN Reason: Pain Scale 6 to 10 Stop: 10/02/22 09:07 Last Admin: 09/03/22 07:45 Dose: 1 each Atorvastatin Calcium (Atorvastatin 40 Mg Tab) 40 mg PO HS [facility] Last Admin: 09/02/22 20:26 Dose: 40 mg Ferrous Sulfate (Ferrous Sulfate 325 Mg Tab) 325 mg PO BID-W/MEALS [facility] Last Admin: 09/03/22 11:55 Dose: 325 mg Hydromorphone HCl (Hydromorphone 0.5 Mg/0.5 Ml Syringe) 0.5 mg IVP Q3HR PRN PRN Reason: Pain Scale 7 to 10 Stop: 10/02/22 09:07 Last Admin: 09/03/22 09:58 Dose: 0.5 mg Hydromorphone HCl (Hydromorphone 0.5 Mg/0.5 Ml Syringe) 0.25 mg IVP Q3HR PRN PRN Reason: Pain Scale 4 to 6 Stop: 10/02/22 09:07 Lactated Ringer's (Lactated Ringers) 1,000 mls @ 20 mls/hr IV .Q24H JEREMY Stop: 10/01/22 14:24 Last Admin: 09/02/22 15:12 Dose: Not Given Lidocaine HCl (Lidocaine 1% (10mg/Ml) For Iv Start) 0.1 ml INTRADERMA PER PROTOCOL PRN PRN Reason: IV Start Stop: 10/01/22 14:24 Losartan Potassium (Losartan 50 Mg Tab) 100 mg PO QAM [facility] Last Admin: 09/03/22 07:42 Dose: 100 mg Magnesium Hydroxide (Magnesium Hydroxide 2,400 Mg/10 Ml Cup) 2,400 mg PO DAILY PRN PRN Reason: Constipation Stop: 10/02/22 09:07 Metoprolol Tartrate (Metoprolol Tartrate 12.5 Mg Tab) 12.5 mg PO BID [facility] Last Admin: 09/03/22 07:42 Dose: 12.5 mg Naloxone HCl (Naloxone 0.4 Mg/Ml 1 Ml Vial) 0.2 mg IV Q2M PRN PRN Reason: Opioid Reversal Stop: 10/02/22 09:07 Rivaroxaban (Rivaroxaban 20 Mg Tab) 20 mg PO DAILY [facility]; Protocol Stop: 10/08/22 09:01 Last Admin: 09/03/22 07:42 Dose: 20 mg Senna/Docusate Sodium (Sennosides-Docusate Sodium 1 Each Tab) 2 each PO HS [facility] Stop: 10/02/22 21:01 Last Admin: 09/02/22 20:26 Dose: 2 each Past medical history to include: [place] 20 years ago with angioplasty 2, osteoarthritis, stomach and duodenal ulcer . Atrial fibrillation. Cardiac catheterization June 2022: Nonobstructive disease. Diverticulosis Social history: Granddaughter Bill lives with her. Smoked a pack-a-day for 36 years stopped 20 years ago. Alcohol rarely. Family history: Colon cancer Physical examination: VITAL SIGNS: 98.4, 56, 18, 100/63, 97% room air GENERAL: BMI 41.6, up in a chair EYES: Pupils equal. Conjunctiva normal. HEENT: External appearance of nose and ears normal, oral cavity grossly normal. NECK: JVD not raised; masses not palpable. HEART: Heart sounds are regular no edema. LUNGS: Respiratory rate normal; decreased breath sounds. ABDOMEN: Soft, nontender, liver spleen not palpable, no masses palpable. PSYCH: Alert and oriented x3; mood and affect normal. MUSCULOSKELETAL:No Clubbing/cyanosis;muscles-grossly intact . OA. Dressing over the right hip incision site INVESTIGATIONS, reviewed in the clinical context: September 03: Hemoglobin 9.9 platelets 169 June 2022 [sodium 137 potassium 3.6 creatinine 0.5. Hemoglobin 11.6 platelets 139 Assessment and plan: -Right hip total arthroplasty. Resumexarelto, when okay with orthopnea -Paroxysmal atrial fibrillation = sinus rhythm. Resumes xarelto, when okay with orthopedics. Lopressor 25 mg twice a day -CAD. Prior angioplasty. Nonobstructive CAD per cardiac catheterization June [address] Escamilla -Acute postprocedure blood loss anemia expected from surgery Add ferrous sulfate -Essential hypertension Lopressor, losartan -Morbid obesity BMI 41.2 Weight loss measures -Chronic diverticulosis, asymptomatic Add ferrous sulfate. Discussed with patient. Xarelto has been resumed. Thank you Dr. Patiño
[2022-09-03] MEDS: ATORVASTATIN 40 MG TAB PO SCH (19:51)
[2022-09-03] MEDS: SENNOSIDES-DOCUSATE SODIUM 1 EACH TAB PO SCH (19:51)
[2022-09-03] MEDS: LACTATED RINGERS 1,000 ML IV SCH (19:52)
[2022-09-04] MEDS ORDERED: DILTIAZEM 125 MG in SODIUM CHLORIDE 0.9% 100 ML IV SCH ×2 (02:00→02:15)
[2022-09-04] MEDS: HYDROcodone/APAP 7.5-325MG 1 EACH TAB PO PRN ×2 (02:16→20:07)
[2022-09-04] MEDS: SODIUM CHLORIDE 0.9% 250 ML IV SCH ×3 (02:24→02:26)
[2022-09-04] MEDS: FERROUS SULFATE 325 MG TAB PO SCH ×2 (06:25→17:09)
[2022-09-04] MEDS ORDERED: DOCUSATE 100 MG CAP PO SCH (09:00)
[2022-09-04] MEDS ORDERED: METOPROLOL TARTRATE 25 MG TAB PO SCH (09:00)
[2022-09-04] MEDS: LOSARTAN 50 MG TAB PO SCH (09:42)
[2022-09-04] MEDS: RIVAROXABAN 20 MG TAB PO SCH (09:42)
[2022-09-04] MEDS: HYDROmorphone 0.5 MG/0.5 ML SYRINGE IVP PRN ×4 (09:43→23:21)
--- NOTE | 2022-09-04 12:06 | P.CRDCN ---
History of Present Illness Consult date: 09/04/22 History of present illness: HISTORY OF PRESENT ILLNESS: This is a 72-year-old female with a past medical history significant for paroxysmal atrial fibrillation, coronary artery disease with angioplasty approximately 20 years ago, hypertension, hyperlipidemia, and former nicotine dependence. Patient follows in the office with Dr. Escamilla. We have been asked to see the patient in consultation for A. fib with RVR. Patient examined at the bedside. Patient underwent right total hip arthroplasty on 09/02/2022. Overnight, the patient went into A. fib with RVR. She was started on IV Cardizem. This morning, the patient remains in atrial fibrillation with controlled ventricular rates. She denies chest pain or pressure. Denies shortness of breath. Patient's blood pressures are borderline with a systolic in the 90s. * EKG reveals sinus mechanism. Telemetry reveals atrial fibrillation with controlled ventricular rates. * Laboratory data: WBC 7.3. Hemoglobin 9.9. Platelet count 169. Troponin negative 1. * Current home cardiac medications include Xarelto 20 mg daily, metoprolol tartrate 25 mg twice a day, losartan 100 mg daily, and Crestor 20 mg at night * Most recent echocardiogram obtained in June 2022 revealed ejection fraction 45-50% * Cardiac catheterization history: June 2022 revealing 30-40% RCA stenosis, 40- 50% circumflex, and 40-50% mid LAD stenosis. Elevated left-sided filling pressures. IFR circumflex and LAD normal. Medical management was recommended. REVIEW OF SYSTEMS: At the time of my exam: CONSTITUTIONAL: Denies fever or chills. HEENT: Denies blurred vision, vision changes, or eye pain. Denies hemoptysis CARDIOVASCULAR: Denies chest pain. Denies orthopnea. Denies PND. Denies palpitations RESPIRATORY: Denies shortness of breath. GASTROINTESTINAL: Denies abdominal pain. Denies nausea or vomiting. HEMATOLOGIC: Denies bleeding disorders. GENITOURINARY: Denies any blood in urine. SKIN: Denies pruitis. Denies rash. PHYSICAL EXAM: VITAL SIGNS: Reviewed. GENERAL: Well-developed in no acute distress. HEENT: Head is normocephalic. Pupils are equal, round. Sclerae anicteric. Mucous membranes of the mouth are moist. Neck supple. No JVD or thyromegaly LUNGS: Respirations even and unlabored. Lungs essentially clear to auscultation bilaterally. HEART: Regular rate and rhythm. S1 and S2 heard. ABDOMEN: Soft. Nondistended. Nontender. EXTREMITIES: Normal range of motion. No clubbing or cyanosis. Peripheral pulses intact. No lower extremity edema NEUROLOGIC: Awake and alert. Oriented x 3. ASSESSMENT: Osteoarthritis, status post right total hip arthroplasty Paroxysmal atrial fibrillation with RVR Coronary artery disease Hypertension Hyperlipidemia with previous statin intolerance Former nicotine dependence PLAN: No need to repeat echocardiogram as this was performed in June 2022 Obtain BMP and TSH Increase metoprolol to 25 mg 3 times a day Decrease losartan to 50 mg daily secondary to soft blood pressures Continue telemetry monitoring Continue oral anticoagulation with Xarelto Further recommendations pending patient's course Nurse practitioner note has been reviewed by physician. Signing provider agrees with the documented findings, assessment, and plan of care. Past Medical History Past Medical History: Atrial Fibrillation, Hypertension, Myocardial Infarction (MA), Musculoskeletal Disorder, Rheumatoid Arthritis (RA) Additional Past Medical History / Comment(s): Back pain, hx ulcers. rt hip needs replacement. 05/14 [facility] for back pain and pain in side dx for ulcers. went into [facility] 2 days after discharge from [place] [facility] for rt arm edema and stayed for afib. Placed on heart monitor and in afib 10% of the time. Put on xarelto. arthritis generalized. 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; pain procedures, colonoscopy,lipomas removed Past Anesthesia/Blood Transfusion Reactions: No Reported Reaction, Motion Sickness Additional Past Anesthesia/Blood Transfusion Reaction / Comment(s): no hx blood transfusion Smoking Status: Former smoker - Past Family History Brother(s) Family Medical History: Cancer Additional Family Medical History / Comment(s): Colon Ca Father Family Medical History: Myocardial Infarction (MA) Mother Family Medical History: Cancer Additional Family Medical History / Comment(s): breast Sister(s) Family Medical History: Cancer Additional Family Medical History / Comment(s): ovarian Medications and Allergies Home Medications Medication Instructions Recorded Confirmed Type Losartan [Cozaar] 100 mg PO QA 05/01/21 09/02/22 History Rosuvastatin [Crestor] 20 mg PO HS 07/02/22 09/02/22 History Metoprolol Tartrate [Lopressor] 25 mg PO BID #60 tab 07/05/22 09/02/22 Rx Rivaroxaban [Xarelto] 20 mg PO QAM 08/29/22 08/29/22 History Vitamin B12 Unk Dose 1 dose PO DAILY 08/29/22 08/29/22 History Vitamin C Unk Dose 1 dose PO DAILY 08/29/22 08/29/22 History Vitamin D Unk Dose 1 dose PO DAILY 08/29/22 08/29/22 History Vitamin E Unk Dose 1 dose PO DAILY 08/29/22 08/29/22 History Allergies Allergy/AdvReac Type Severity Reaction Status Date / Time cyclobenzaprine Allergy gets Verified 09/02/22 05:59 [From Flexeril] shakey and hands turn anderson Sulfa (Sulfonamide Allergy states she Verified 09/02/22 05:59 Antibiotics) feels terrible, can't move,vomiting Physical Exam Vitals: Vital Signs Temp Pulse Resp BP BP Pulse Ox 09/04/22 08:55 98.6 F 102 H 20 117/78 94 L 09/04/22 08:00 104 H 09/04/22 06:25 100 99/58 09/04/22 04:30 132 H 102/66 09/04/22 03:39 133 H 18 09/04/22 03:35 96.7 F L 99 20 96/63 92 L 09/04/22 01:58 98.9 F 113 H 18 93/61 94 L 09/03/22 20:00 98.4 F 69 17 111/76 95 09/03/22 17:15 73 117/74 09/03/22 14:00 98.4 F 56 L 18 100/63 97 Intake and Output 09/03/22 09/04/22 09/04/22 22:59 06:59 14:59 Intake Total 10 Output Total 100 Balance -100 10 Intake: IV 10 Invasive Line 1 10 Output: Urine 100 Other: Voiding Method Bedside Commode Bedside Commode # Voids 3 1 Results 09/03/22 07:12 Cardiac Enzymes 09/03/22 Range/Units 17:28 Troponin I <0.012 (0.000-0.034) ng/mL Current Medications Generic Name Dose Route Start Last Admin Trade Name Freq PRN Reason Stop Dose Admin Hydrocodone Bitart/Acetaminophen 1 each 09/02/22 09:06 Hydrocodone/Apap 5-325mg 1 Each Tab PO 10/02/22 09:07 Q6HR PRN Pain Scale 1 to 5 Hydrocodone Bitart/Acetaminophen 1 each 09/02/22 09:06 09/04/22 02:16 Hydrocodone/Apap 7.5-325mg 1 Each Tab PO 10/02/22 09:07 1 each Q6H PRN Administration Pain Scale 6 to 10 Atorvastatin Calcium 40 mg 09/02/22 21:00 09/03/22 19:51 Atorvastatin 40 Mg Tab PO 40 mg HS JEREMY Administration Ferrous Sulfate 325 mg 09/03/22 11:30 09/04/22 06:25 Ferrous Sulfate 325 Mg Tab PO 325 mg BID-W/MEALS JEREMY Administration Hydromorphone HCl 0.5 mg 09/02/22 09:06 09/04/22 09:43 Hydromorphone 0.5 Mg/0.5 Ml Syringe IVP 10/02/22 09:07 0.5 mg Q3HR PRN Administration Pain Scale 7 to 10 Hydromorphone HCl 0.25 mg 09/02/22 09:06 Hydromorphone 0.5 Mg/0.5 Ml Syringe IVP 10/02/22 09:07 Q3HR PRN Pain Scale 4 to 6 Lactated Ringer's 1,000 mls @ 20 mls/hr 09/01/22 14:23 09/03/22 19:52 Lactated Ringers IV 10/01/22 14:24 20 mls/hr .Q24H JEREMY Administration Lidocaine HCl 0.1 ml 09/01/22 14:23 Lidocaine 1% (10mg/Ml) For Iv Start INTRADERMA 10/01/22 14:24 PER PROTOCOL PRN IV Start Losartan Potassium 50 mg 09/04/22 09:00 09/04/22 09:42 Losartan 50 Mg Tab PO 50 mg QAM JEREMY Administration Magnesium Hydroxide 2,400 mg 09/02/22 09:06 Magnesium Hydroxide 2,400 Mg/10 Ml Cup PO 10/02/22 09:07 DAILY PRN Constipation Metoprolol Tartrate 25 mg 09/04/22 16:00 Metoprolol Tartrate 25 Mg Tab PO TID JEREMY Naloxone HCl 0.2 mg 09/02/22 09:06 Naloxone 0.4 Mg/Ml 1 Ml Vial IV 10/02/22 09:07 Q2M PRN Opioid Reversal Rivaroxaban 20 mg 09/03/22 09:00 09/04/22 09:42 Rivaroxaban 20 Mg Tab PO 10/08/22 09:01 20 mg DAILY JEREMY Administration Protocol Senna/Docusate Sodium 2 each 09/02/22 21:00 09/03/22 19:51 Sennosides-Docusate Sodium 1 Each Tab PO 10/02/22 21:01 2 each HS JEREMY Administration Intake and Output 09/03/22 09/04/22 09/04/22 22:59 06:59 14:59 Intake Total 10 Output Total 100 Balance -100 10 Intake: IV 10 Invasive Line 1 10 Output: Urine 100 Other: Voiding Method Bedside Commode Bedside Commode # Voids 3 1 09/03/22 07:12
[2022-09-04 13:08] LABS: African American GFR (CKD) >90 (>60 ml/min/1.73 sqM); Anion Gap 8 mmol/L; Blood Urea Nitrogen 13 mg/dL (7-17); Calcium 8.8 mg/dL (8.4-10.2); Carbon Dioxide 22 mmol/L (22-30); Chloride 104 mmol/L (98-107); Glucose 127 mg/dL (74-99); Non-African American GFR(CKD) >90 (>60 ml/min/1.73 sqM); Potassium 4.7 mmol/L (3.5-5.1); Sodium 134 mmol/L (137-145)
--- NOTE | 2022-09-04 13:55 | P.PN ---
Progress Note - Text Progress Note Date: 09/04/22 - Chief Complaint Hip surgery Hospital course: This is a 72-year-old patient who follows with Dr. Codie woods. Chronic stable medical conditions include CAD with her NH 20 years ago with angioplasty 2, osteoarthritis of the joints, peptic ulcer disease with ulcer in the stomach and the duodenal bulb , atrial fibrillation . Cardiac catheterization by Dr. Escamilla in June of this issue nonobstructive disease. Today has undergone right total hip osteoplasty. Per Dr. Patiño. Postprocedure laying in bed. No nausea vomiting. No chest pain. Daughter the bedside. Pain control. September 03: Some pain in the right hip. He tolerated diet. Breathing stable. Up in a chair. September 04: Patient overnight went into A. fib with rapid ventricular rate. Was put on a Cardizem drip. This morning taken off the drip. Remains in A. fib. Controlled. Dose of Cozaar cutback. Lopressor increased. Patient to continue and xarelto. No chest pain or palpitation. Patient's granddaughter the bedside. States patient often is in A. fib at home. Rate controlled. As per the [employer] watch Active Medications Hydrocodone Bitart/Acetaminophen (Hydrocodone/Apap 5-325mg 1 Each Tab) 1 each PO Q6HR PRN PRN Reason: Pain Scale 1 to 5 Stop: 10/02/22 09:07 Hydrocodone Bitart/Acetaminophen (Hydrocodone/Apap 7.5-325mg 1 Each Tab) 1 each PO Q6H PRN PRN Reason: Pain Scale 6 to 10 Stop: 10/02/22 09:07 Last Admin: 09/04/22 02:16 Dose: 1 each Atorvastatin Calcium (Atorvastatin 40 Mg Tab) 40 mg PO HS [facility] Last Admin: 09/03/22 19:51 Dose: 40 mg Ferrous Sulfate (Ferrous Sulfate 325 Mg Tab) 325 mg PO BID-W/MEALS [facility] Last Admin: 09/04/22 06:25 Dose: 325 mg Hydromorphone HCl (Hydromorphone 0.5 Mg/0.5 Ml Syringe) 0.5 mg IVP Q3HR PRN PRN Reason: Pain Scale 7 to 10 Stop: 10/02/22 09:07 Last Admin: 09/04/22 12:43 Dose: 0.5 mg Hydromorphone HCl (Hydromorphone 0.5 Mg/0.5 Ml Syringe) 0.25 mg IVP Q3HR PRN PRN Reason: Pain Scale 4 to 6 Stop: 10/02/22 09:07 Lactated Ringer's (Lactated Ringers) 1,000 mls @ 20 mls/hr IV .Q24H [facility] Stop: 10/01/22 14:24 Last Admin: 09/03/22 19:52 Dose: 20 mls/hr Lidocaine HCl (Lidocaine 1% (10mg/Ml) For Iv Start) 0.1 ml INTRADERMA PER PROTOCOL PRN PRN Reason: IV Start Stop: 10/01/22 14:24 Losartan Potassium (Losartan 50 Mg Tab) 50 mg PO QAM [facility] Last Admin: 09/04/22 09:42 Dose: 50 mg Magnesium Hydroxide (Magnesium Hydroxide 2,400 Mg/10 Ml Cup) 2,400 mg PO DAILY PRN PRN Reason: Constipation Stop: 10/02/22 09:07 Metoprolol Tartrate (Metoprolol Tartrate 25 Mg Tab) 25 mg PO TID [facility] Naloxone HCl (Naloxone 0.4 Mg/Ml 1 Ml Vial) 0.2 mg IV Q2M PRN PRN Reason: Opioid Reversal Stop: 10/02/22 09:07 Rivaroxaban (Rivaroxaban 20 Mg Tab) 20 mg PO DAILY [facility]; Protocol Stop: 10/08/22 09:01 Last Admin: 09/04/22 09:42 Dose: 20 mg Senna/Docusate Sodium (Sennosides-Docusate Sodium 1 Each Tab) 2 each PO HS [facility] Stop: 10/02/22 21:01 Last Admin: 09/03/22 19:51 Dose: 2 each Past medical history to include: NH 20 years ago with angioplasty 2, osteoarthritis, stomach and duodenal ulcer . Atrial fibrillation. Cardiac catheterization June 2022: Nonobstructive disease. Diverticulosis Social history: Granddaughter Bill lives with her. Smoked a pack-a-day for 36 years stopped 20 years ago. Alcohol rarely. Family history: Colon cancer Physical examination: VITAL SIGNS: 98.6, 102, 20, 117/78, 94% room air GENERAL: BMI 41.6, up in a recliner EYES: Pupils equal. Conjunctiva normal. HEENT: External appearance of nose and ears normal, oral cavity grossly normal. NECK: JVD not raised; masses not palpable. HEART: Heart sounds irregular, no edema. LUNGS: Respiratory rate normal; decreased breath sounds. ABDOMEN: Soft, nontender, liver spleen not palpable, no masses palpable. PSYCH: Alert and oriented x3; mood and affect normal. MUSCULOSKELETAL:No Clubbing/cyanosis;muscles-grossly intact . OA. Dressing over the right hip incision site INVESTIGATIONS, reviewed in the clinical context: September 04: Potassium 4.7 creatinine 0.5 to. TSH 3.9 Troponin I less than 0.012 September 03: Hemoglobin 9.9 platelets 169 June 2022 [sodium 137 potassium 3.6 creatinine 0.5. Hemoglobin 11.6 platelets 139 Assessment and plan: -Right hip total arthroplasty. Xarelto -Paroxysmal atrial fibrillation episode of rapid ventricle rate overnight.. This morning rate better controlled xarelto, increase Lopressor 25 mg 3 times a day, patient was earlier on Cardizem drip now discontinued -CAD. Prior angioplasty. Nonobstructive CAD per cardiac catheterization June [address] Escamilla -Acute postprocedure blood loss anemia expected from surgery ferrous sulfate -Essential hypertension Lopressor, losartan -Morbid obesity BMI 41.2 Weight loss measures -Chronic diverticulosis, asymptomatic Patient taken off Cardizem drip. Lopressor increased. Discussed with patient and family the bedside. Thank you Dr. Patiño
[2022-09-04] MEDS: HYDROcodone/APAP 5-325MG 1 EACH TAB PO PRN (15:07)
[2022-09-04] MEDS: LACTATED RINGERS 1,000 ML IV SCH (15:09)
--- NOTE | 2022-09-04 15:31 | P.PN ---
Subjective Progress Note Date: 09/04/22 Principal diagnosis: Right hip osteoarthritis Patient was seen at bedside this afternoon on the cardiac floor. Patient was transferred to the cardiac floor overnight due to going into A. fib with RVR. Patient has been placed on cardizem drip and cardiology was consulted. Patient says she is doing better today however, patient says she is still in a lot of pain in the right hip. Patient says she is also complaining of right knee pain. Patient says her right knee only hurts when she bears weight on the right lower extremity. Patient is wondering if she may be twisted it when she got up with physical therapy yesterday. Patient says she is looking forward to going to rehab on discharge. Patient patient says she has urinated several times since surgery performed. Patient says she has not had a bowel movement yet, however, patient says she has been passing gas. Patient denies chest pain, fever, sure his breath, nausea, vomiting, change in vision, loss of bladder control. Objective - Vital Signs Vital signs: Vital Signs Temp 97.9 F 09/04/22 15:13 Pulse 72 09/04/22 15:13 Resp 16 09/04/22 15:13 BP 115/82 09/04/22 15:13 Pulse Ox 97 09/04/22 15:13 FiO2 Intake & Output 09/03/22 09/04/22 09/04/22 18:59 06:59 18:59 Intake Total 10 Output Total 100 Balance -100 10 Intake: IV 10 Invasive Line 1 10 Oral 0 Output: Urine 100 Other: Voiding Method Toilet Bedside Commode Bedside Commode # Voids 3 1 2 - Exam Right hip: Incision is clean, dry, and intact. The bulky dressing is in good condition. There is minimal soft tissue swelling and ecchymosis surrounding the medial and lateral aspects of the incision. Calf is soft, no tenderness with palpation. Plantar flexion, dorsiflexion, EHL, FHL are intact. Sensory exam to light touch throughout the extremity is intact, dorsal pedis pulses 2+. - Labs CBC & Chem 7: 09/03/22 07:12 09/04/22 12:22 Labs: Abnormal Lab Results - Last 24 Hours (Table) 09/04/22 Range/Units 12:22 Sodium 134 L (137-145) mmol/L Glucose 127 H (74-99) mg/dL Assessment and Plan Assessment: 1. Right hip osteoarthritis - Postop day #2 status post right total hip arthroplasty Plan: 1. Right hip osteoarthritis - right total hip arthroplasty performed 09/02/2022. Patient stable at bedside this morning on cardiac floor. Cardiology consulted due to afib w/RVR. On cardizem drip. We'll continue to follow patient during her stay in hospital. Plan for discharge to rehab tomorrow, 09/05/2022. 2. Appreciate medical and cardiology management 3. Pain management - [place] 4. DVT prophylaxis -Xarelto 5. GI prophylaxis - senna 6. PT/OT - weightbearing as tolerated with walker and assistance as necessary 7. Encourage incentive spirometer use 8. Discharge planning - plan for discharge to rehab tmrw, 09/05/2022. Time with Patient: Less than 30
[2022-09-04] MEDS: METOPROLOL TARTRATE 25 MG TAB PO SCH ×2 (17:09→20:07)
[2022-09-04] MEDS: SENNOSIDES-DOCUSATE SODIUM 1 EACH TAB PO SCH (20:07)
[2022-09-04] MEDS: ATORVASTATIN 40 MG TAB PO SCH (20:07)
[2022-09-05] MEDS: FERROUS SULFATE 325 MG TAB PO SCH (06:29)
[2022-09-05] MEDS: HYDROcodone/APAP 5-325MG 1 EACH TAB PO PRN (06:29)
[2022-09-05 07:39] LABS: Basophils % (A) 0 %; Eosinophils # (A) 0.1 k/uL (0-0.7); Eosinophils % (A) 2 %; HCT 30.6 % (34.0-46.0); HGB 9.8 gm/dL (11.4-16.0); Hypochromasia Slight; Lymphocytes # (A) 1.2 k/uL (1.0-4.8); Lymphocytes % (A) 21 %; MCH 30.2 pg (25.0-35.0); MCHC 31.9 g/dL (31.0-37.0); MCV 94.7 fL (80.0-100.0); Mean Platelet Volume 8.8; Monocytes # (A) 0.3 k/uL (0-1.0); Monocytes % (A) 5 %; Neutrophils % (A) 71 %; Platelet Count 164 k/uL (150-450); RBC 3.23 m/uL (3.80-5.40); RDW 14.7 % (11.5-15.5); WBC 5.7 k/uL (3.8-10.6)
[2022-09-05] MEDS ORDERED: hydrOXYzine pamoate 25 MG CAP PO PRN (09:03)
[2022-09-05] MEDS: LOSARTAN 50 MG TAB PO SCH (09:37)
[2022-09-05] MEDS: RIVAROXABAN 20 MG TAB PO SCH (09:37)
[2022-09-05] MEDS: METOPROLOL TARTRATE 25 MG TAB PO SCH ×2 (09:37→16:03)
[2022-09-05 11:13] VITALS: RESP 15; TEMP 97.7
--- NOTE | 2022-09-05 12:27 | P.DS ---
Providers Date of admission: 09/05/22 07:15 Expected date of discharge: 09/05/22 Attending physician: Gilmar Patiño Consults: 09/02/22 09:11 Consult Physician Routine Consulting Provider: Rikki Walter Consult Reason/Comments: Medical Management s/p right total hip arthroplasty Do you want consulting provider notified?: Yes 09/04/22 01:47 Consult Physician Routine Consulting Provider: Tay Owens Consult Reason/Comments: Afib RVR Do you want consulting provider notified?: Yes Primary care physician: Codie Block Hospital Course: Date of admission: 09/02/2022 Date of discharge: 09/05/2022 Admission diagnosis: Right hip osteoarthritis Discharge diagnosis: same Attending physician: Dr. Patiño Surgical procedures: Right total hip arthroplasty Brief history: Patient is a 72-year-old female with a history of progressive primary right hip osteoarthritis. At this point patient has failed conservative treatment measures and has opted to proceed with a elective right total hip arthroplasty. Hospital course: Details of patient's surgery can be found in operative report. Patient tolerated the procedure well and was subsequently transported to orthopedic floor. Patient's orthopeidc and medical care was provided daily. Patient had daily laboratory tests performed for evaluation of overall blood counts. Patient had daily physical therapy to include strengthening range of motion as well as education with walker ambulation. Patient was treated with Xarelto for their postoperative DVT prophylaxis during their inpatient stay. Patient was noted to have a relatively uneventful postoperative course. Patient reported satisfactory pain control with oral pain medications by postoperative day 3. Patient showed satisfactory progress with physical therapy. Patient moved steadily through the program and had no difficulty meeting the goals by postoperative day 3. Given patient's otherwise satisfactory course and having met physical therapy goals, plan is to discharge patient to rehab on postoperative day 3. Discharge condition/disposition: Patient will be discharged to rehab in stable condition. Discharge medications: Instructions are given on resumption of patient's normal daily medications per primary care recommendation, in addition patient will be prescribed Assaria; senna; Xarelto. Orthopedic Discharge Instructions: 1. Wound care and infection precautions, keep incision dry and covered while showering, no lotions, creams, moisturizers. No soaking, pools, hot tubs. Do not scrub over incision. 2. Weight-bear as tolerated with walker / cane until follow-up. 3. Ice and elevate when necessary. Do not exceed 20 minutes per hour with ice pack. 4. Utilize compression sleeve until seen at first follow up appointment. 5. Pain meds and anticoagulants per prescription. 6. Pain medication has potential to cause constipation. Increase oral fluid and fiber intake. Contact primary care provider if you have not had a bowel movement within 48 hours after discharge. 7. No anti-inflammatory medication until discussed at first post operative visit, this including Motrin, Aleve, Mobic, Diclofenac. 8. Follow up in office at 2 weeks postop with Mark Nj PA-C / Marck Erickson PA-C 9. Follow up with your primary care doctor 7-10 days after discharge. 10. Contact [facility] with any questions, . Keep incision clean, dry, intact. While showering, cover fusion tape with Saran wrap. KEEP fusion tape on until follow-up appointment in office in 2 weeks Assessment: Right hip osteoarthritis Procedures: Right total hip arthroplasty Patient Condition at Discharge: Good Plan - Discharge Summary Discharge Rx Participant: No New Discharge Prescriptions: New HYDROcodone/APAP 7.5-325MG [Assaria 7.5-325] 1 - 2 tab PO Q6HR PRN #24 tab PRN Reason: Pain Sennosides/Docusate Sodium [Senna Plus 8.6-50 mg Softgel] 1 each PO DAILY #20 capsule Ferrous Sulfate [Iron (65 MG Elemental)] 325 mg PO BID-W/MEALS tab Continue Rosuvastatin [Crestor] 20 mg PO HS Rivaroxaban [Xarelto] 20 mg PO QAM Changed Losartan [Cozaar] 50 mg PO QAM #0 Metoprolol Tartrate [Lopressor] 25 mg PO TID #1 tab No Action Vitamin E Unk Dose 1 dose PO DAILY Vitamin B12 Unk Dose 1 dose PO DAILY Vitamin D Unk Dose 1 dose PO DAILY Vitamin C Unk Dose 1 dose PO DAILY Discharge Medication List Rosuvastatin [Crestor] 20 mg PO HS 07/02/22 [History] Rivaroxaban [Xarelto] 20 mg PO QAM 08/29/22 [History] Vitamin B12 Unk Dose 1 dose PO DAILY 08/29/22 [History] Vitamin C Unk Dose 1 dose PO DAILY 08/29/22 [History] Vitamin D Unk Dose 1 dose PO DAILY 08/29/22 [History] Vitamin E Unk Dose 1 dose PO DAILY 08/29/22 [History] Ferrous Sulfate [Iron (65 MG Elemental)] 325 mg PO BID-W/MEALS tab 09/05/22 [Rx] HYDROcodone/APAP 7.5-325MG [Assaria 7.5-325] 1 - 2 tab PO Q6HR PRN #24 tab 09/05/22 [Rx] Losartan [Cozaar] 50 mg PO QAM #0 09/05/22 [Rx] Metoprolol Tartrate [Lopressor] 25 mg PO TID #1 tab 09/05/22 [Rx] Sennosides/Docusate Sodium [Senna Plus 8.6-50 mg Softgel] 1 each PO DAILY #20 capsule 09/05/22 [Rx] Follow up Appointment(s)/Referral(s): cardiology, [Other] - 2 Weeks Marck Erickson, RAJWINDER [PHYSICIAN [employer]Y FRAME TENDER] - 09/18/22 11:00 am Codie Block DO [Primary Care Provider] - 1 Week Patient Instructions/Handouts: Total Hip Replacement (DC) Activity/Diet/Wound Care/Special Instructions: Orthopedic Discharge Instructions: 1. Wound care and infection precautions, keep incision dry and covered while showering, no lotions, creams, moisturizers. No soaking, pools, hot tubs. Do not scrub over incision. 2. Weight-bear as tolerated with walker / cane until follow-up. 3. Ice and elevate when necessary. Do not exceed 20 minutes per hour with ice pack. 4. Utilize compression sleeve until seen at first follow up appointment. 5. Pain meds and anticoagulants per prescription. 6. Pain medication has potential to cause constipation. Increase oral fluid and fiber intake. Contact primary care provider if you have not had a bowel movement within 48 hours after discharge. 7. No anti-inflammatory medication until discussed at first post operative visit, this including Motrin, Aleve, Mobic, Diclofenac. 8. Follow up in office at 2 weeks postop with Mark Nj PA-C / Marck Erickson PA-C 9. Follow up with your primary care doctor 7-10 days after discharge. 10. Contact [facility] with any questions, . Keep incision clean, dry, intact. While showering, cover fusion tape with Saran wrap. KEEP fusion tape on until follow-up appointment in office in 2 weeks Discharge Disposition: TRANSFER TO SNF/ECF
--- NOTE | 2022-09-05 12:36 | P.PN ---
Subjective Progress Note Date: 09/05/22 Principal diagnosis: Right hip osteoarthritis Patient was seen at bedside this morning on the cardiac floor. Patient was transferred to the cardiac floor a couple nights ago due to going into [facility] with RVR. Cardiology and medicine have been following daily. Patient says she is doing better today however, patient says she is still in a lot of pain in the right hip. Patient says she is also complaining of right knee pain. Patient says her right knee only hurts when she bears weight on the right lower extremity. Patient says she is looking forward to going to rehab today. Patient patient says she has urinated several times since surgery performed. Patient says she has not had a bowel movement yet, however, patient says she has been passing gas. Patient denies chest pain, fever, shortness of breath, nausea, vomiting, change in vision, loss of bladder control. Objective - Vital Signs Vital signs: Vital Signs Temp 97.7 F 09/05/22 11:09 Pulse 55 L 09/05/22 11:09 Resp 15 09/05/22 11:09 BP 137/63 09/05/22 11:09 Pulse Ox 93 L 09/05/22 11:35 FiO2 21 09/05/22 11:35 Intake & Output 09/04/22 09/05/22 09/05/22 18:59 06:59 18:59 Intake Total 550 Balance 550 Intake: IV 10 Invasive Line 1 10 Oral 540 Other: Voiding Method Bedside Commode Bedside Commode Bedside Commode # Voids 2 1 - Exam Right hip: Incision is clean, dry, and intact. The dressing is in good condition. There is minimal soft tissue swelling and ecchymosis surrounding the medial and lateral aspects of the incision. Calf is soft, no tenderness with palpation. Plantar flexion, dorsiflexion, EHL, FHL are intact. Sensory exam to light touch throughout the extremity is intact, dorsal pedis pulses 2+. - Labs CBC & Chem 7: 09/05/22 07:25 09/04/22 12:22 Labs: Abnormal Lab Results - Last 24 Hours (Table) 09/04/22 09/05/22 Range/Units 12:22 07:25 RBC 3.23 L (3.80-5.40) m/uL Hgb 9.8 L (11.4-16.0) gm/dL Hct 30.6 L (34.0-46.0) % Sodium 134 L (137-145) mmol/L Glucose 127 H (74-99) mg/dL Assessment and Plan Assessment: 1. Right hip osteoarthritis - Postop day #3 status post right total hip arthroplasty Plan: 1. Right hip osteoarthritis - right total hip arthroplasty performed 09/02/2022. Patient stable at bedside this morning on cardiac floor. Pain medication as needed. PT/OT daily. We have added Vistaril for additional medication. Discharge to rehab today, 09/05/2022. 2. Appreciate medical and cardiology management 3. Pain management - [place]; Vistaril 4. DVT prophylaxis -Xarelto 5. GI prophylaxis - senna 6. PT/OT - weightbearing as tolerated with walker and assistance as necessary 7. Encourage incentive spirometer use 8. Discharge planning -discharge to rehab today, 09/05/2022. Time with Patient: Less than 30
--- NOTE | 2022-09-05 12:56 | P.PN ---
Subjective HISTORY OF PRESENT ILLNESS: This is a 72-year-old female with a past medical history significant for paroxysmal atrial fibrillation, coronary artery disease with angioplasty approximately 20 years ago, hypertension, hyperlipidemia, and former nicotine dependence. Patient follows in the office with Dr. Escamilla. We have been asked to see the patient in consultation for A. fib with RVR. Patient examined at the bedside. Patient underwent right total hip arthroplasty on 09/02/2022. Overnight, the patient went into A. fib with RVR. She was started on IV Cardizem. This morning, the patient remains in atrial fibrillation with controlled ventricular rates. She denies chest pain or pressure. Denies shortness of breath. Patient's blood pressures are borderline with a systolic in the 90s. * EKG reveals sinus mechanism. Telemetry reveals atrial fibrillation with controlled ventricular rates. * Laboratory data: WBC 7.3. Hemoglobin 9.9. Platelet count 169. Troponin negative 1. * Current home cardiac medications include Xarelto 20 mg daily, metoprolol tartrate 25 mg twice a day, losartan 100 mg daily, and Crestor 20 mg at night * Most recent echocardiogram obtained in June 2022 revealed ejection fraction 45-50% * Cardiac catheterization history: June 2022 revealing 30-40% RCA stenosis, 40- 50% circumflex, and 40-50% mid LAD stenosis. Elevated left-sided filling pressures. IFR circumflex and LAD normal. Medical management was recommended. 09/05/2022 Patient examined this morning at the bedside. Patient denies chest pain or pressure. She denies shortness of breath. Telemetry reveals sinus mechanism with a heart rate in the 60s. Vital signs are stable. She is being discharged to rehab today. PHYSICAL EXAM: VITAL SIGNS: Reviewed. GENERAL: Well-developed in no acute distress. HEENT: Head is normocephalic. Pupils are equal, round. Sclerae anicteric. Mucous membranes of the mouth are moist. Neck supple. No JVD or thyromegaly LUNGS: Respirations even and unlabored. Lungs essentially clear to auscultation bilaterally. HEART: Regular rate and rhythm. S1 and S2 heard. ABDOMEN: Soft. Nondistended. Nontender. EXTREMITIES: Normal range of motion. No clubbing or cyanosis. Peripheral pulses intact. No lower extremity edema NEUROLOGIC: Awake and alert. Oriented x 3. ASSESSMENT: Osteoarthritis, status post right total hip arthroplasty Paroxysmal atrial fibrillation with RVR Coronary artery disease Hypertension Hyperlipidemia with previous statin intolerance Former nicotine dependence PLAN: Continue current cardiac medications Continue oral anticoagulation with Xarelto Patient is stable for discharge to ECF today from a cardiac standpoint Nurse practitioner note has been reviewed by physician. Signing provider agrees with the documented findings, assessment, and plan of care. Objective - Vital Signs Vital signs: Vital Signs Temp 97.7 F 09/05/22 11:09 Pulse 55 L 09/05/22 11:09 Resp 15 09/05/22 11:09 BP 137/63 09/05/22 11:09 Pulse Ox 93 L 09/05/22 11:35 FiO2 21 09/05/22 11:35 Intake & Output 09/04/22 09/05/22 09/05/22 18:59 06:59 18:59 Intake Total 550 Balance 550 Intake: IV 10 Invasive Line 1 10 Oral 540 Other: Voiding Method Bedside Commode Bedside Commode Bedside Commode # Voids 2 1 - Labs CBC & Chem 7: 09/05/22 07:25 09/04/22 12:22 Labs: Abnormal Lab Results - Last 24 Hours (Table) 09/04/22 09/05/22 Range/Units 12:22 07:25 RBC 3.23 L (3.80-5.40) m/uL Hgb 9.8 L (11.4-16.0) gm/dL Hct 30.6 L (34.0-46.0) % Sodium 134 L (137-145) mmol/L Glucose 127 H (74-99) mg/dL
--- NOTE | 2022-09-05 13:28 | P.PN ---
Progress Note - Text Progress Note Date: 09/05/22 - Chief Complaint Hip surgery Hospital course: This is a 72-year-old patient who follows with Dr. Codie woods. Chronic stable medical conditions include CAD with her ID 20 years ago with angioplasty 2, osteoarthritis of the joints, peptic ulcer disease with ulcer in the stomach and the duodenal bulb , atrial fibrillation . Cardiac catheterization by Dr. Escamilla in June of this issue nonobstructive disease. Today has undergone right total hip osteoplasty. Per Dr. Patiño. Postprocedure laying in bed. No nausea vomiting. No chest pain. Daughter the bedside. Pain control. September 03: Some pain in the right hip. He tolerated diet. Breathing stable. Up in a chair. September 04: Patient overnight went into A. fib with rapid ventricular rate. Was put on a Cardizem drip. This morning taken off the drip. Remains in A. fib. Controlled. Dose of Cozaar cutback. Lopressor increased. Patient to continue and xarelto. No chest pain or palpitation. Patient's granddaughter the bedside. States patient often is in A. fib at home. Rate controlled. As per the apple watch September 05: Does not like hospital food. A. fib controlled. Lopressor 25 mg 3 times a day. Discussed with patient. Getting discharged tomorrow today for rehab. Active Medications Hydrocodone Bitart/Acetaminophen (Hydrocodone/Apap 5-325mg 1 Each Tab) 1 each PO Q6HR PRN PRN Reason: Pain Scale 1 to 5 Stop: 10/02/22 09:07 Last Admin: 09/05/22 06:29 Dose: 1 each Hydrocodone Bitart/Acetaminophen (Hydrocodone/Apap 7.5-325mg 1 Each Tab) 1 each PO Q6H PRN PRN Reason: Pain Scale 6 to 10 Stop: 10/02/22 09:07 Last Admin: 09/04/22 20:07 Dose: 1 each Atorvastatin Calcium (Atorvastatin 40 Mg Tab) 40 mg PO HS [facility] Last Admin: 09/04/22 20:07 Dose: 40 mg Ferrous Sulfate (Ferrous Sulfate 325 Mg Tab) 325 mg PO BID-W/MEALS [facility] Last Admin: 09/05/22 06:29 Dose: 325 mg Hydromorphone HCl (Hydromorphone 0.5 Mg/0.5 Ml Syringe) 0.5 mg IVP Q3HR PRN PRN Reason: Pain Scale 7 to 10 Stop: 10/02/22 09:07 Last Admin: 09/04/22 23:21 Dose: 0.5 mg Hydromorphone HCl (Hydromorphone 0.5 Mg/0.5 Ml Syringe) 0.25 mg IVP Q3HR PRN PRN Reason: Pain Scale 4 to 6 Stop: 10/02/22 09:07 Last Admin: 09/05/22 03:54 Dose: 0.25 mg Hydroxyzine Pamoate (Hydroxyzine Pamoate 25 Mg Cap) 25 mg PO Q8HR PRN PRN Reason: pain Last Admin: 09/05/22 09:36 Dose: 25 mg Lactated Ringer's (Lactated Ringers) 1,000 mls @ 20 mls/hr IV .Q24H [facility] Stop: 10/01/22 14:24 Last Admin: 09/04/22 15:09 Dose: Not Given Lidocaine HCl (Lidocaine 1% (10mg/Ml) For Iv Start) 0.1 ml INTRADERMA PER PROTOCOL PRN PRN Reason: IV Start Stop: 10/01/22 14:24 Losartan Potassium (Losartan 50 Mg Tab) 50 mg PO QAM [facility] Last Admin: 09/05/22 09:37 Dose: 50 mg Magnesium Hydroxide (Magnesium Hydroxide 2,400 Mg/10 Ml Cup) 2,400 mg PO DAILY PRN PRN Reason: Constipation Stop: 10/02/22 09:07 Last Admin: 09/04/22 18:20 Dose: 2,400 mg Metoprolol Tartrate (Metoprolol Tartrate 25 Mg Tab) 25 mg PO TID [facility] Last Admin: 09/05/22 09:37 Dose: 25 mg Naloxone HCl (Naloxone 0.4 Mg/Ml 1 Ml Vial) 0.2 mg IV Q2M PRN PRN Reason: Opioid Reversal Stop: 10/02/22 09:07 Rivaroxaban (Rivaroxaban 20 Mg Tab) 20 mg PO DAILY [facility]; Protocol Stop: 10/08/22 09:01 Last Admin: 09/05/22 09:37 Dose: 20 mg Senna/Docusate Sodium (Sennosides-Docusate Sodium 1 Each Tab) 2 each PO HS [facility] Stop: 10/02/22 21:01 Last Admin: 09/04/22 20:07 Dose: 2 each Past medical history to include: ID 20 years ago with angioplasty 2, osteoarthritis, stomach and duodenal ulcer . Atrial fibrillation. Cardiac catheterization June 2022: Nonobstructive disease. Diverticulosis Social history: Granddaughter Bill lives with her. Smoked a pack-a-day for 36 years stopped 20 years ago. Alcohol rarely. Family history: Colon cancer Physical examination: VITAL SIGNS: 97.7, 55, 15, 137/63, 98% room air GENERAL: BMI 41.6, up in a recliner EYES: Pupils equal. Conjunctiva normal. HEENT: External appearance of nose and ears normal, oral cavity grossly normal. NECK: JVD not raised; masses not palpable. HEART: Heart sounds irregular, no edema. LUNGS: Respiratory rate normal; decreased breath sounds. ABDOMEN: Soft, nontender, liver spleen not palpable, no masses palpable. PSYCH: Alert and oriented x3; mood and affect normal. MUSCULOSKELETAL:No Clubbing/cyanosis;muscles-grossly intact . OA. Dressing over the right hip incision site INVESTIGATIONS, reviewed in the clinical context: September 05: White count 5.7 hemoglobin 9.8 platelets 164 September 04: Potassium 4.7 creatinine 0.5 to. TSH 3.9 Troponin I less than 0.012 September 03: Hemoglobin 9.9 platelets 169 June 2022 [sodium 137 potassium 3.6 creatinine 0.5. Hemoglobin 11.6 platelets 139 Assessment and plan: -Right hip total arthroplasty. Xarelto -Paroxysmal atrial fibrillation episode of rapid ventricle rate overnight.. : Controlled xarelto, Lopressor 25 mg 3 times a day, -CAD. Prior angioplasty. Nonobstructive CAD per cardiac catheterization June [address] Escamilla -Acute postprocedure blood loss anemia expected from surgery ferrous sulfate -Essential hypertension Lopressor, losartan -Morbid obesity BMI 41.2 Weight loss measures -Chronic diverticulosis, asymptomatic Discussed with patient. Going to rehab at [facility] Thank you Dr. Patiño
[2022-09-05] MEDS: HYDROcodone/APAP 7.5-325MG 1 EACH TAB PO PRN (14:51)
[2022-09-05] MEDS: LACTATED RINGERS 1,000 ML IV SCH (16:02)
[2022-09-05 16:04] VITALS: BP 130/59; PULSE 63
== END 2022-09-05 16:37 | DRG 982 ==
LOC: OR 05:31 → 4SSUR 09:22 → OR 09-03 12:48 → 4SSUR 09-03 12:48 → 3SCARD 09-04 04:05 → OBSVTOIN 09-05 07:15
PROVIDERS: ADMIT Orthopaedic Surgery; ATTEND Orthopaedic Surgery
PROC: 0SR902A Replacement of Right Hip Joint with Metal on Polyethylene Synthetic Substitute, Uncemented, Open Approach (ICD-10-PCS; principal; 2022-09-02 07:00)
DX: I48.0 Paroxysmal atrial fibrillation (principal); D62 Acute posthemorrhagic anemia; Z68.41 Body mass index [BMI] 40.0-44.9, adult; E66.01 Morbid (severe) obesity due to excess calories; M06.9 Rheumatoid arthritis, unspecified; M16.11 Unilateral primary osteoarthritis, right hip; Z28.310 Unvaccinated for COVID-19; I10 Essential (primary) hypertension; E78.5 Hyperlipidemia, unspecified; I25.2 Old myocardial infarction; M54.9 Dorsalgia, unspecified; I25.10 Atherosclerotic heart disease of native coronary artery without angina pectoris; K57.90 Diverticulosis of intestine, part unspecified, without perforation or abscess without bleeding; M25.561 Pain in right knee; Z79.01 Long term (current) use of anticoagulants; Z79.899 Other long term (current) drug therapy; Z95.5 Presence of coronary angioplasty implant and graft; Z87.891 Personal history of nicotine dependence; Z88.2 Allergy status to sulfonamides; Z88.8 Allergy status to other drugs, medicaments and biological substances
CPT/HCPCS: 64447; 73501; 80048; 84443; 84484; 85025; 85610; 85730; 93005; 94760